=== PATIENT | male | born 1955 | race African-American/Black ===

== ENCOUNTER 2018-11-25 22:34 | Inpatient (IN) | payer MEDICAID ==
[~2018-11-25] VITALS: Ht 175.3 cm; Wt 57.2 kg
[~2018-11-25 22:34] MED LIST: ALBU90AE INH; LISI10TA5 PO; THE3 PO; TIOT18CA3 INH
[2018-11-25] MEDS ORDERED: ONDANSETRON HCL 4MG/2ML INJ IV STA (22:38)
[2018-11-25] MEDS ORDERED: IPRATROPIUM BROMIDE (0.02%) 0.5MG/2.5ML NEB HHN STA (22:38)
[2018-11-25] MEDS ORDERED: METHYLPREDNISOLONE SOD SUCC 125 MG/2 ML VIAL IV STA (22:38)
[2018-11-25] MEDS ORDERED: SODIUM CHLORIDE 0.9% 1,000 ML IV ONE (22:38)
[2018-11-25] MEDS ORDERED: IPRATROPIUM/ALBUTEROL 0.5-3(2.5)MG/3ML NEB ONE (22:39)
[2018-11-25] MEDS ORDERED: MAGNESIUM 2 G PREMIX 50 ML IV ONE (22:45)
[2018-11-25] MEDS ORDERED: ALBUTEROL (0.083%) 2.5MG/3ML NEB HHN SCH (23:00)
[2018-11-25 23:01] LABS: BASOPHILS % 1.5 % (0.0-2.0); EOSINOPHILS % 9.5 % (0.0-5.0); HEMATOCRIT. 38.2 % (42.0-52.0); HEMOGLOBIN. 13.1 g/dL (14.0-18.0); LYMPHOCYTES % 24.9 % (20.0-50.0); MEAN CORPUSCULAR HEMOGLOBIN 32.1 pg (28.0-32.0); MEAN CORPUSCULAR VOLUME 93.6 fL (80.0-94.0); MEAN PLATELET VOLUME 8.3 fl (7.4-10.4); MONOCYTES % 10.5 % (2.0-8.0); NEUTROPHILS % 53.6 % (40.0-76.0); PLATELET 200 x1000/uL (130-400); RED BLOOD CELL COUNT 4.09 mill/uL (4.7-6.1); RED CELL DISTRIBUTION WIDTH 13.3 % (11.6-14.6)
[2018-11-25 23:06] LABS: CHLORIDE 108 mEq/L (98-107)
[2018-11-26] VITALS (10 sets, daily range): BP systolic 114–164; BP diastolic 19–88
[2018-11-26] MEDS ORDERED: MORPHINE SULFATE 4 MG/ML CPJ (NOT FOR IM USE) IV ONE
[2018-11-26] MEDS ORDERED: IPRATROPIUM/ALBUTEROL 0.5-3(2.5)MG/3ML NEB INH PRN (02:30)
[2018-11-26] MEDS ORDERED: DIPHENHYDRAMINE 50MG/ML VIAL IV PRN (02:30)
[2018-11-26] MEDS ORDERED: MAGNESIUM/ALUMINUM HYDROXIDE/SIMETHICONE 30ML UDC PO PRN (02:30)
[2018-11-26] MEDS ORDERED: ONDANSETRON HCL 4MG/2ML INJ IV PRN (02:30)
[2018-11-26] MEDS ORDERED: CLONIDINE 0.1MG TABLET PO PRN (02:30)
[2018-11-26] MEDS ORDERED: ENOXAPARIN 40MG/0.4ML SYR SUBCUT SCH (02:30)
[2018-11-26] MEDS ORDERED: ACETAMINOPHEN 325MG TABLET PO PRN (02:30)
[2018-11-26] MEDS: METHYLPREDNISOLONE SOD SUCC 125 MG/2 ML VIAL IV SCH ×3 (06:11→21:23)
[2018-11-26] MEDS: ENOXAPARIN 40MG/0.4ML SYR SUBCUT SCH (11:16)
[2018-11-26] MEDS: HYDROCODONE/ACETAMINOPHEN 5/325MG TABLET PO PRN (13:53)
[2018-11-26] MEDS: GUAIFENESIN 200MG/10ML SUGAR FREE UDC PO PRN (13:53)
[2018-11-26] MEDS: IPRATROPIUM/ALBUTEROL 0.5-3(2.5)MG/3ML NEB HHN SCH ×2 (15:35→21:35)
[2018-11-26 19:40] LABS: CLARITY URINE CLEAR (CLEAR); COLOR URINE YELLOW (YELLOW); KETONES URINE TRACE (NEGATIVE); LEUKOCYTE ESTERASE URINE NEGATIVE (NEGATIVE); NITRITE URINE NEGATIVE (NEGATIVE); OCCULT BLOOD URINE NEGATIVE (NEGATIVE); PROTEIN URINE NEGATIVE (NEGATIVE)
[2018-11-26 20:14] LABS: *AMPHETAMINES SCREEN URINE NEGATIVE (NEGATIVE); *BARBITURATES SCREEN URINE NEGATIVE (NEGATIVE); *BENZODIAZEPINES SCREEN URINE NEGATIVE (NEGATIVE); *COCAINE SCREEN URINE PRESUMTIVE POSITIVE (NEGATIVE)
[2018-11-26 20:15] LABS: CANNABINOID URINE SCREEN NEGATIVE (NEGATIVE); METHADONE URINE SCREEN NEGATIVE (NEGATIVE); OPIATES URINE SCREEN PRESUMTIVE POSITIVE (NEGATIVE); PHENCYCLIDINE URINE SCREEN PRESUMTIVE POSITIVE (NEGATIVE)
[2018-11-26] MEDS ORDERED: TEMAZEPAM 15MG CAPSULE PO PRN (21:00)
[2018-11-26] MEDS: FLUTICASONE PROPIONATE 50MCG/SPRAY BOTTLE BOTHNSTRLS SCH (21:23)
[2018-11-26] MEDS: SODIUM CHLORIDE 0.9% INJ 3ML FLUSH IVF SCH ×2 (21:24→21:33)
[2018-11-27] VITALS (7 sets, daily range): BP systolic 111–169; BP diastolic 78–91
[2018-11-27] MEDS: IPRATROPIUM/ALBUTEROL 0.5-3(2.5)MG/3ML NEB HHN SCH ×2 (04:00→09:30)
[2018-11-27] MEDS: GUAIFENESIN 200MG/10ML SUGAR FREE UDC PO PRN ×2 (04:18→08:47)
[2018-11-27] MEDS: HYDROCODONE/ACETAMINOPHEN 5/325MG TABLET PO PRN (04:20)
[2018-11-27] MEDS: SODIUM CHLORIDE 0.9% INJ 3ML FLUSH IVF SCH (06:10)
[2018-11-27] MEDS: METHYLPREDNISOLONE SOD SUCC 125 MG/2 ML VIAL IV SCH (06:10)
[2018-11-27] MEDS: ENOXAPARIN 40MG/0.4ML SYR SUBCUT SCH (08:48)
[2018-11-27] MEDS: FLUTICASONE PROPIONATE 50MCG/SPRAY BOTTLE BOTHNSTRLS SCH (08:48)
== END 2018-11-27 11:05 | disposition home or self-care (01) | DRG 133 ==
LOC: ER 22:34 → 5EST 11-26 02:12 → EDBEDREQTM 11-26 02:17 → EDBEDREQ 11-26 02:17 → ENRESERV 11-26 08:19
PROVIDERS: ADMIT Internal Medicine; ATTEND Internal Medicine
PROC: 5A09357 Assistance with Respiratory Ventilation, Less than 24 Consecutive Hours, Continuous Positive Airway Pressure (ICD-10-PCS; 2018-11-25)
PROC: 5A09357 Assistance with Respiratory Ventilation, Less than 24 Consecutive Hours, Continuous Positive Airway Pressure (ICD-10-PCS; principal; 2018-11-26)
DX: J96.00 Acute respiratory failure, unspecified whether with hypoxia or hypercapnia (principal); Z99.81 Dependence on supplemental oxygen; J44.1 Chronic obstructive pulmonary disease with (acute) exacerbation; E44.1 Mild protein-calorie malnutrition; J45.901 Unspecified asthma with (acute) exacerbation; I10 Essential (primary) hypertension; J00 Acute nasopharyngitis [common cold]; Z85.118 Personal history of other malignant neoplasm of bronchus and lung; Z87.891 Personal history of nicotine dependence; Z87.01 Personal history of pneumonia (recurrent); Z79.899 Other long term (current) drug therapy; Z68.1 Body mass index [BMI] 19.9 or less, adult; Z92.3 Personal history of irradiation; Z85.819 Personal history of malignant neoplasm of unspecified site of lip, oral cavity, and pharynx
CPT/HCPCS: 36415; 71045; 80305; 83605; 83880; 84484; 87804; 93005; 94640; 94660; 96365; 99285; J1200; J1650; J2270; J2405; J2930; J3475; J7030; J7620

== ENCOUNTER 2019-01-04 01:13 | Inpatient (IN) | payer MEDICAID ==
[2019-01-04] VITALS (58 sets, daily range): BP systolic 81–156; BP diastolic 55–107
[~2019-01-04] VITALS: Ht 170.2 cm; Wt 67.6 kg
[2019-01-04] MEDS ORDERED: IPRATROPIUM BROMIDE (0.02%) 0.5MG/2.5ML NEB HHN STA (01:17)
[2019-01-04] MEDS ORDERED: MORPHINE SULFATE 4 MG/ML CPJ (NOT FOR IM USE) IV STA (01:17)
[2019-01-04] MEDS ORDERED: ONDANSETRON HCL 4MG/2ML INJ IV STA (01:17)
[2019-01-04] MEDS ORDERED: METHYLPREDNISOLONE SOD SUCC 125 MG/2 ML VIAL IV STA (01:17)
[2019-01-04] MEDS ORDERED: SODIUM CHLORIDE 0.9% 1,000 ML IV ONE (01:17)
[2019-01-04] MEDS ORDERED: MORPHINE SULFATE 10 MG/ML CPJ ONE (01:23)
[2019-01-04] MEDS ORDERED: SUCCINYLCHOLINE CHLORIDE 200MG/10ML IV ONE ×2 (01:27→01:30)
[2019-01-04] MEDS ORDERED: ETOMIDATE 2MG/ML 10ML VIAL IV ONE ×2 (01:27→01:30)
[2019-01-04] MEDS ORDERED: ALBUTEROL (0.083%) 2.5MG/3ML NEB HHN SCH (01:30)
[2019-01-04] MEDS ORDERED: MAGNESIUM 2 G PREMIX 50 ML IV ONE (01:30)
[2019-01-04] MEDS ORDERED: PROPOFOL 10MG/ML 100ML 100 ML IV ONE (01:30)
[2019-01-04 01:46] LABS: BASOPHILS % 1.3 % (0.0-2.0); EOSINOPHILS % 8.3 % (0.0-5.0); HEMATOCRIT. 37.8 % (42.0-52.0); HEMOGLOBIN. 13.3 g/dL (14.0-18.0); LYMPHOCYTES % 31.1 % (20.0-50.0); MEAN CORPUSCULAR HEMOGLOBIN 32.6 pg (28.0-32.0); MEAN CORPUSCULAR VOLUME 92.6 fL (80.0-94.0); MEAN PLATELET VOLUME 7.6 fl (7.4-10.4); MONOCYTES % 12.1 % (2.0-8.0); NEUTROPHILS % 47.2 % (40.0-76.0); PLATELET 200 x1000/uL (130-400); RED BLOOD CELL COUNT 4.08 mill/uL (4.7-6.1); RED CELL DISTRIBUTION WIDTH 13.2 % (11.6-14.6)
[2019-01-04 01:54] LABS: CHLORIDE 103 mEq/L (98-107)
[2019-01-04 01:55] LABS: PROTHROMBIN TIME 10.6 sec (9.6-11.0)
[2019-01-04] MEDS ORDERED: MIDAZOLAM HCL 50 MG in DEXTROSE 5% WATER 40 ML IV ONE (02:30)
[2019-01-04 02:42] LABS: BG BASE EXCESS -1.5 mmol/L (-2.0-2.0); BG CARBOXYHEMOGLOBIN 1.4 % (0.5-1.5); BG DEOXYHEMOGLOBIN 0.9 % (0.0-5.0); BG FRACTION INSPIRED OXYGEN 60; BG HCO3 ACT 29.5 mmol/L (22.0-26.0); BG METHEMOGLOBIN 0.5 % (0.0-1.5); BG OXYGEN SATURATION 99.1 % (92.0-98.5); BG OXYHEMOGLOBIN 97.2 % (94.0-97.0); BG PH 7.163 (7.350-7.450); BG PO2 215.5 mmHg (75.0-100.0); BG SAMPLE SITE RIGHT BRACHIAL; BG TIDAL VOLUME(mL) 500 mL; BG TOTAL HEMOGLOBIN 13.7 g/dL (12.0-18.0); BG VENT MODE VENT - A/C; BG VENT RATE 16 set
[2019-01-04] MEDS ORDERED: FENTANYL CITRATE/PF 500 MCG in SODIUM CHLORIDE 0.9% 40 ML IV PRN (03:15)
[2019-01-04] MEDS: FENTANYL CITRATE/PF 500 MCG in SODIUM CHLORIDE 0.9% 40 ML IV PRN ×3 (03:59→18:38)
[2019-01-04] MEDS: MIDAZOLAM HCL 50 MG in DEXTROSE 5% WATER 40 ML IV PRN ×4 (04:00→18:50)
[2019-01-04] MEDS ORDERED: IOHEXOL-350 100 ML BOTTLE ONE (05:14)
[2019-01-04] MEDS ORDERED: ACETAMINOPHEN 325MG TABLET PO PRN (10:30)
[2019-01-04] MEDS ORDERED: IPRATROPIUM/ALBUTEROL 0.5-3(2.5)MG/3ML NEB INH PRN (10:30)
[2019-01-04] MEDS ORDERED: ACETAMINOPHEN 650MG SUPP PR PRN (10:30)
[2019-01-04] MEDS ORDERED: ONDANSETRON HCL 4MG/2ML INJ IV PRN (10:30)
[2019-01-04 13:05] LABS: BG BASE EXCESS -0.3 mmol/L (-2.0-2.0); BG CARBOXYHEMOGLOBIN 0.2 % (0.5-1.5); BG DEOXYHEMOGLOBIN 1.3 % (0.0-5.0); BG HCO3 ACT 26.4 mmol/L (22.0-26.0); BG METHEMOGLOBIN 0.2 % (0.0-1.5); BG OXYGEN SATURATION 98.7 % (92.0-98.5); BG OXYHEMOGLOBIN 98.3 % (94.0-97.0); BG PCO2 50.9 mmHg (35.0-45.0); BG PH 7.332 (7.350-7.450); BG PO2 147.4 mmHg (75.0-100.0); BG SAMPLE SITE RIGHT RADIAL; BG TIDAL VOLUME(mL) 500 mL; BG TOTAL HEMOGLOBIN 14.8 g/dL (12.0-18.0); BG VENT MODE VENT - A/C; BG VENT RATE 20 set
[2019-01-04] MEDS: METHYLPREDNISOLONE SOD SUCC 125 MG/2 ML VIAL IV SCH ×2 (14:02→18:32)
[2019-01-04] MEDS: AZITHROMYCIN 500 MG in DEXT 5% WATER 250 ML IV SCH (14:02)
[2019-01-04 14:46] LABS: CLARITY URINE CLEAR (CLEAR); COLOR URINE YELLOW (YELLOW); KETONES URINE NEGATIVE (NEGATIVE); LEUKOCYTE ESTERASE URINE NEGATIVE (NEGATIVE); NITRITE URINE NEGATIVE (NEGATIVE); OCCULT BLOOD URINE 2+ (NEGATIVE); PH URINE 5.5 (4.5-8.0); PROTEIN URINE NEGATIVE (NEGATIVE); SPECIFIC GRAVITY URINE 1.066 (1.005-1.030)
[2019-01-04 14:59] LABS: METHADONE URINE SCREEN NEGATIVE (NEGATIVE); OPIATES URINE SCREEN PRESUMTIVE POSITIVE (NEGATIVE)
[2019-01-04 15:01] LABS: *AMPHETAMINES SCREEN URINE NEGATIVE (NEGATIVE); *BARBITURATES SCREEN URINE NEGATIVE (NEGATIVE); *BENZODIAZEPINES SCREEN URINE PRESUMTIVE POSITIVE (NEGATIVE); *COCAINE SCREEN URINE PRESUMTIVE POSITIVE (NEGATIVE); CANNABINOID URINE SCREEN NEGATIVE (NEGATIVE); PHENCYCLIDINE URINE SCREEN PRESUMTIVE POSITIVE (NEGATIVE)
[2019-01-04] MEDS: CEFEPIME 1,000 MG in DEXTROSE 5% WATER 50 ML IV SCH (15:13)
[2019-01-04] MEDS: METRONIDAZOLE 500 MG PREMIX 100 ML IV SCH (16:17)
[2019-01-04] MEDS: IPRATROPIUM/ALBUTEROL 0.5-3(2.5)MG/3ML NEB HHN SCH ×2 (16:30→20:23)
[2019-01-05] VITALS (86 sets, daily range): BP systolic 91–134; BP diastolic 57–107
[2019-01-05] MEDS: IPRATROPIUM/ALBUTEROL 0.5-3(2.5)MG/3ML NEB HHN SCH ×6 (00:35→21:28)
[2019-01-05] MEDS: METRONIDAZOLE 500 MG PREMIX 100 ML IV SCH ×3 (00:45→15:46)
[2019-01-05] MEDS: METHYLPREDNISOLONE SOD SUCC 125 MG/2 ML VIAL IV SCH ×4 (00:46→18:17)
[2019-01-05] MEDS: FENTANYL CITRATE/PF 500 MCG in SODIUM CHLORIDE 0.9% 40 ML IV PRN ×4 (01:07→20:20)
[2019-01-05] MEDS: CEFEPIME 1,000 MG in DEXTROSE 5% WATER 50 ML IV SCH ×2 (03:48→15:09)
[2019-01-05] MEDS: MIDAZOLAM HCL 50 MG in DEXTROSE 5% WATER 40 ML IV PRN ×3 (03:50→20:19)
[2019-01-05 05:50] LABS: HEMATOCRIT. 34.8 % (42.0-52.0); HEMOGLOBIN. 12.1 g/dL (14.0-18.0); MEAN CORPUSCULAR HEMOGLOBIN 32.3 pg (28.0-32.0); MEAN CORPUSCULAR VOLUME 93.3 fL (80.0-94.0); MEAN PLATELET VOLUME 8.3 fl (7.4-10.4); PLATELET 185 x1000/uL (130-400); RED BLOOD CELL COUNT 3.73 mill/uL (4.7-6.1); RED CELL DISTRIBUTION WIDTH 13.2 % (11.6-14.6)
[2019-01-05 06:11] LABS: CHLORIDE 102 mEq/L (98-107)
[2019-01-05 08:00] LABS: BG BASE EXCESS -2.8 mmol/L (-2.0-2.0); BG CARBOXYHEMOGLOBIN 0.3 % (0.5-1.5); BG DEOXYHEMOGLOBIN 2.2 % (0.0-5.0); BG FRACTION INSPIRED OXYGEN 50; BG HCO3 ACT 24.3 mmol/L (22.0-26.0); BG METHEMOGLOBIN 0.4 % (0.0-1.5); BG OXYGEN SATURATION 97.8 % (92.0-98.5); BG OXYHEMOGLOBIN 97.1 % (94.0-97.0); BG PCO2 51.9 mmHg (35.0-45.0); BG PH 7.288 (7.350-7.450); BG PO2 113.4 mmHg (75.0-100.0); BG SAMPLE SITE RIGHT BRACHIAL; BG TIDAL VOLUME(mL) 500 mL; BG TOTAL HEMOGLOBIN 12.8 g/dL (12.0-18.0); BG VENT MODE VENT - A/C; BG VENT RATE 16 set
[2019-01-05] MEDS: AZITHROMYCIN 500 MG in DEXT 5% WATER 250 ML IV SCH (13:41)
[2019-01-05] MEDS: MULTIVITAMINS,THER W-MINERALS TABLET PO SCH (14:12)
[2019-01-05] MEDS: FOLIC ACID 1MG TABLET PO SCH (14:12)
[2019-01-05] MEDS: THIAMINE HCL 100MG TABLET PO SCH (14:12)
[2019-01-05 15:31] LABS: PLATELET ESTIMATE NORMAL
[2019-01-05] MEDS: THEOPHYLLINE ANHYDROUS 80 MG/15 ML 120ML PO SCH (18:18)
[2019-01-06] VITALS (83 sets, daily range): BP systolic 108–176; BP diastolic 64–102
[2019-01-06] MEDS: IPRATROPIUM/ALBUTEROL 0.5-3(2.5)MG/3ML NEB HHN SCH ×6 (00:02→21:06)
[2019-01-06] MEDS: METRONIDAZOLE 500 MG PREMIX 100 ML IV SCH ×4 (00:49→23:55)
[2019-01-06] MEDS: THEOPHYLLINE ANHYDROUS 80 MG/15 ML 120ML PO SCH ×5 (00:56→23:55)
[2019-01-06] MEDS: METHYLPREDNISOLONE SOD SUCC 125 MG/2 ML VIAL IV SCH ×2 (00:56→08:59)
[2019-01-06] MEDS: FENTANYL CITRATE/PF 500 MCG in SODIUM CHLORIDE 0.9% 40 ML IV PRN ×5 (02:10→20:16)
[2019-01-06] MEDS: MIDAZOLAM HCL 50 MG in DEXTROSE 5% WATER 40 ML IV PRN ×4 (02:24→20:16)
[2019-01-06] MEDS: CEFEPIME 1,000 MG in DEXTROSE 5% WATER 50 ML IV SCH ×2 (03:30→15:41)
[2019-01-06 05:34] LABS: HEMATOCRIT. 32.1 % (42.0-52.0); HEMOGLOBIN. 11.3 g/dL (14.0-18.0); MEAN CORPUSCULAR HEMOGLOBIN 32.7 pg (28.0-32.0); MEAN CORPUSCULAR VOLUME 93.1 fL (80.0-94.0); PLATELET 157 x1000/uL (130-400); RED BLOOD CELL COUNT 3.45 mill/uL (4.7-6.1)
[2019-01-06 05:41] LABS: CHLORIDE 102 mEq/L (98-107)
[2019-01-06 08:41] LABS: BG BASE EXCESS 0.4 mmol/L (-2.0-2.0); BG CARBOXYHEMOGLOBIN 0.3 % (0.5-1.5); BG DEOXYHEMOGLOBIN 3.2 % (0.0-5.0); BG FRACTION INSPIRED OXYGEN 50; BG HCO3 ACT 27.9 mmol/L (22.0-26.0); BG METHEMOGLOBIN 0.2 % (0.0-1.5); BG OXYGEN SATURATION 96.8 % (92.0-98.5); BG OXYHEMOGLOBIN 96.3 % (94.0-97.0); BG PCO2 58.9 mmHg (35.0-45.0); BG PH 7.294 (7.350-7.450); BG PO2 97.9 mmHg (75.0-100.0); BG SAMPLE SITE RIGHT RADIAL; BG TIDAL VOLUME(mL) 500 mL; BG TOTAL HEMOGLOBIN 12.3 g/dL (12.0-18.0); BG VENT MODE VENT - A/C; BG VENT RATE 16 set
[2019-01-06] MEDS: THIAMINE HCL 100MG TABLET PO SCH (09:11)
[2019-01-06] MEDS: FOLIC ACID 1MG TABLET PO SCH (09:11)
[2019-01-06] MEDS: MULTIVITAMINS,THER W-MINERALS TABLET PO SCH (09:11)
[2019-01-06] MEDS: AZITHROMYCIN 500 MG in DEXT 5% WATER 250 ML IV SCH (14:24)
[2019-01-06] MEDS: METHYLPREDNISOLONE SOD SUCC 40 MG/ML VIAL IV SCH ×2 (14:24→20:45)
[2019-01-06 16:02] LABS: PLATELET ESTIMATE NORMAL
[2019-01-07] VITALS (92 sets, daily range): BP systolic 104–193; BP diastolic 63–126
[2019-01-07] MEDS: IPRATROPIUM/ALBUTEROL 0.5-3(2.5)MG/3ML NEB HHN SCH ×6 (00:31→20:06)
[2019-01-07] MEDS: CEFEPIME 1,000 MG in DEXTROSE 5% WATER 50 ML IV SCH ×2 (02:42→15:30)
[2019-01-07] MEDS: MIDAZOLAM HCL 50 MG in DEXTROSE 5% WATER 40 ML IV PRN ×4 (03:24→22:43)
[2019-01-07] MEDS: THEOPHYLLINE ANHYDROUS 80 MG/15 ML 120ML PO SCH ×3 (05:01→17:49)
[2019-01-07] MEDS: METHYLPREDNISOLONE SOD SUCC 40 MG/ML VIAL IV SCH ×3 (05:01→20:50)
[2019-01-07] MEDS: FENTANYL CITRATE/PF 500 MCG in SODIUM CHLORIDE 0.9% 40 ML IV PRN ×3 (05:24→14:48)
[2019-01-07 05:50] LABS: HEMATOCRIT. 32.4 % (42.0-52.0); HEMOGLOBIN. 11.3 g/dL (14.0-18.0); MEAN CORPUSCULAR HEMOGLOBIN 32.5 pg (28.0-32.0); MEAN CORPUSCULAR VOLUME 93.3 fL (80.0-94.0); MEAN PLATELET VOLUME 8.2 fl (7.4-10.4); PLATELET 140 x1000/uL (130-400); RED BLOOD CELL COUNT 3.47 mill/uL (4.7-6.1); RED CELL DISTRIBUTION WIDTH 13.1 % (11.6-14.6)
[2019-01-07 05:58] LABS: CHLORIDE 101 mEq/L (98-107)
[2019-01-07] MEDS: METRONIDAZOLE 500 MG PREMIX 100 ML IV SCH ×2 (07:52→17:48)
[2019-01-07] MEDS: FOLIC ACID 1MG TABLET PO SCH (08:10)
[2019-01-07] MEDS: MULTIVITAMINS,THER W-MINERALS TABLET PO SCH (08:10)
[2019-01-07] MEDS: THIAMINE HCL 100MG TABLET PO SCH (08:10)
[2019-01-07 08:25] LABS: BG BASE EXCESS 4.6 mmol/L (-2.0-2.0); BG CARBOXYHEMOGLOBIN 0.1 % (0.5-1.5); BG DEOXYHEMOGLOBIN 3.4 % (0.0-5.0); BG FRACTION INSPIRED OXYGEN 40; BG HCO3 ACT 30.4 mmol/L (22.0-26.0); BG METHEMOGLOBIN 0.2 % (0.0-1.5); BG OXYGEN SATURATION 96.6 % (92.0-98.5); BG OXYHEMOGLOBIN 96.3 % (94.0-97.0); BG PCO2 50.6 mmHg (35.0-45.0); BG PH 7.396 (7.350-7.450); BG PO2 90.1 mmHg (75.0-100.0); BG SAMPLE SITE RIGHT BRACHIAL; BG TIDAL VOLUME(mL) 500 mL; BG TOTAL HEMOGLOBIN 11.9 g/dL (12.0-18.0); BG VENT MODE VENT - A/C; BG VENT RATE 20 set
[2019-01-07 09:41] LABS: PLATELET ESTIMATE NORMAL
[2019-01-07] MEDS: RISPERIDONE 0.5MG TABLET PO SCH ×2 (10:17→17:49)
[2019-01-07] MEDS ORDERED: BISACODYL 10MG SUPP PR PRN (11:00)
[2019-01-07] MEDS: DOCUSATE SODIUM SUGAR FREE 100MG/10ML UDC PO SCH ×2 (12:31→17:48)
[2019-01-07] MEDS: ENOXAPARIN 40MG/0.4ML SYR SUBCUT SCH (12:33)
[2019-01-07] MEDS: AZITHROMYCIN 500 MG in DEXT 5% WATER 250 ML IV SCH (15:28)
[2019-01-07] MEDS ORDERED: EPOETIN ALFA 4000UNITS/ML VIAL SUBCUT SCH (21:00)
[2019-01-08] VITALS (96 sets, daily range): BP systolic 102–194; BP diastolic 60–105
[2019-01-08] MEDS: IPRATROPIUM/ALBUTEROL 0.5-3(2.5)MG/3ML NEB HHN SCH ×6 (00:08→20:42)
[2019-01-08] MEDS: METRONIDAZOLE 500 MG PREMIX 100 ML IV SCH ×4 (00:12→23:01)
[2019-01-08] MEDS: THEOPHYLLINE ANHYDROUS 80 MG/15 ML 120ML PO SCH ×5 (00:13→23:01)
[2019-01-08] MEDS: FENTANYL CITRATE/PF 500 MCG in SODIUM CHLORIDE 0.9% 40 ML IV PRN ×4 (00:17→20:54)
[2019-01-08] MEDS: CEFEPIME 1,000 MG in DEXTROSE 5% WATER 50 ML IV SCH ×2 (02:38→16:28)
[2019-01-08 05:01] LABS: HEMATOCRIT. 34.3 % (42.0-52.0); HEMOGLOBIN. 11.9 g/dL (14.0-18.0); MEAN CORPUSCULAR HEMOGLOBIN 32.5 pg (28.0-32.0); MEAN CORPUSCULAR VOLUME 93.8 fL (80.0-94.0); PLATELET 142 x1000/uL (130-400); RED BLOOD CELL COUNT 3.65 mill/uL (4.7-6.1); RED CELL DISTRIBUTION WIDTH 13.1 % (11.6-14.6)
[2019-01-08 05:05] LABS: CHLORIDE 98 mEq/L (98-107)
[2019-01-08] MEDS: METHYLPREDNISOLONE SOD SUCC 40 MG/ML VIAL IV SCH ×3 (05:23→20:08)
[2019-01-08] MEDS: MIDAZOLAM HCL 50 MG in DEXTROSE 5% WATER 40 ML IV PRN ×3 (05:26→20:53)
[2019-01-08 08:34] LABS: BG BASE EXCESS 6.3 mmol/L (-2.0-2.0); BG CARBOXYHEMOGLOBIN 0.3 % (0.5-1.5); BG DEOXYHEMOGLOBIN 1.5 % (0.0-5.0); BG FRACTION INSPIRED OXYGEN 40; BG HCO3 ACT 31.5 mmol/L (22.0-26.0); BG METHEMOGLOBIN 0.3 % (0.0-1.5); BG OXYGEN SATURATION 98.5 % (92.0-98.5); BG OXYHEMOGLOBIN 97.9 % (94.0-97.0); BG PCO2 47.5 mmHg (35.0-45.0); BG PH 7.439 (7.350-7.450); BG PO2 135.5 mmHg (75.0-100.0); BG SAMPLE SITE LEFT RADIAL; BG TIDAL VOLUME(mL) 500 mL; BG TOTAL HEMOGLOBIN 12.4 g/dL (12.0-18.0); BG VENT MODE VENT - A/C; BG VENT RATE 20 set
[2019-01-08] MEDS: MULTIVITAMINS,THER W-MINERALS TABLET PO SCH (08:48)
[2019-01-08] MEDS: FOLIC ACID 1MG TABLET PO SCH (08:48)
[2019-01-08] MEDS: THIAMINE HCL 100MG TABLET PO SCH (08:48)
[2019-01-08] MEDS: RISPERIDONE 0.5MG TABLET PO SCH ×2 (08:48→16:28)
[2019-01-08] MEDS: DOCUSATE SODIUM SUGAR FREE 100MG/10ML UDC PO SCH ×2 (08:48→16:28)
[2019-01-08 10:38] LABS: PLATELET ESTIMATE NORMAL
[2019-01-08] MEDS: ENOXAPARIN 40MG/0.4ML SYR SUBCUT SCH (11:25)
[2019-01-08] MEDS: HYDRALAZINE 20MG/ML VIAL IV PRN (11:26)
[2019-01-08] MEDS: AZITHROMYCIN 500 MG in DEXT 5% WATER 250 ML IV SCH (13:24)
[2019-01-09] VITALS (96 sets, daily range): BP systolic 101–188; BP diastolic 59–136
[2019-01-09] MEDS: IPRATROPIUM/ALBUTEROL 0.5-3(2.5)MG/3ML NEB HHN SCH ×6 (00:10→20:28)
[2019-01-09] MEDS: CEFEPIME 1,000 MG in DEXTROSE 5% WATER 50 ML IV SCH ×2 (03:03→15:34)
[2019-01-09 04:51] LABS: CHLORIDE 96 mEq/L (98-107)
[2019-01-09 04:53] LABS: HEMATOCRIT. 36.6 % (42.0-52.0); HEMOGLOBIN. 12.6 g/dL (14.0-18.0); MEAN CORPUSCULAR HEMOGLOBIN 32.1 pg (28.0-32.0); MEAN CORPUSCULAR VOLUME 93.4 fL (80.0-94.0); MEAN PLATELET VOLUME 8.2 fl (7.4-10.4); PLATELET 145 x1000/uL (130-400); RED BLOOD CELL COUNT 3.92 mill/uL (4.7-6.1); RED CELL DISTRIBUTION WIDTH 13.3 % (11.6-14.6)
[2019-01-09] MEDS: MIDAZOLAM HCL 50 MG in DEXTROSE 5% WATER 40 ML IV PRN ×2 (05:48→16:04)
[2019-01-09] MEDS: METHYLPREDNISOLONE SOD SUCC 40 MG/ML VIAL IV SCH ×3 (05:48→20:56)
[2019-01-09] MEDS: FENTANYL CITRATE/PF 500 MCG in SODIUM CHLORIDE 0.9% 40 ML IV PRN ×2 (05:48→16:04)
[2019-01-09] MEDS: THEOPHYLLINE ANHYDROUS 80 MG/15 ML 120ML PO SCH ×4 (05:49→23:51)
[2019-01-09] MEDS: MULTIVITAMINS,THER W-MINERALS TABLET PO SCH (09:53)
[2019-01-09] MEDS: RISPERIDONE 0.5MG TABLET PO SCH ×2 (09:53→16:50)
[2019-01-09] MEDS: THIAMINE HCL 100MG TABLET PO SCH (09:53)
[2019-01-09] MEDS: FOLIC ACID 1MG TABLET PO SCH (09:53)
[2019-01-09] MEDS: DOCUSATE SODIUM SUGAR FREE 100MG/10ML UDC PO SCH ×2 (09:53→16:50)
[2019-01-09 10:13] LABS: PLATELET ESTIMATE NORMAL
[2019-01-09] MEDS ORDERED: LORAZEPAM 2MG/ML CPJ IV SCH (10:30)
[2019-01-09] MEDS: ENOXAPARIN 40MG/0.4ML SYR SUBCUT SCH (11:05)
[2019-01-09] MEDS: METRONIDAZOLE 500 MG PREMIX 100 ML IV SCH ×3 (11:29→23:50)
[2019-01-09] MEDS: AZITHROMYCIN 500 MG in DEXT 5% WATER 250 ML IV SCH (13:49)
[2019-01-10] VITALS (110 sets, daily range): BP systolic 102–213; BP diastolic 65–125
[2019-01-10] MEDS: MIDAZOLAM HCL 50 MG in DEXTROSE 5% WATER 40 ML IV PRN ×2 (00:18→04:50)
[2019-01-10] MEDS: FENTANYL CITRATE/PF 500 MCG in SODIUM CHLORIDE 0.9% 40 ML IV PRN ×4 (00:18→19:58)
[2019-01-10] MEDS: IPRATROPIUM/ALBUTEROL 0.5-3(2.5)MG/3ML NEB HHN SCH ×6 (00:34→20:18)
[2019-01-10] MEDS: CEFEPIME 1,000 MG in DEXTROSE 5% WATER 50 ML IV SCH ×2 (02:59→15:20)
[2019-01-10 04:57] LABS: HEMATOCRIT. 33.1 % (42.0-52.0); HEMOGLOBIN. 11.6 g/dL (14.0-18.0); MEAN CORPUSCULAR HEMOGLOBIN 32.6 pg (28.0-32.0); MEAN CORPUSCULAR VOLUME 93.4 fL (80.0-94.0); MEAN PLATELET VOLUME 8.1 fl (7.4-10.4); PLATELET 151 x1000/uL (130-400); RED BLOOD CELL COUNT 3.54 mill/uL (4.7-6.1); RED CELL DISTRIBUTION WIDTH 13.3 % (11.6-14.6)
[2019-01-10 05:05] LABS: CHLORIDE 97 mEq/L (98-107)
[2019-01-10] MEDS: METHYLPREDNISOLONE SOD SUCC 40 MG/ML VIAL IV SCH ×3 (05:18→21:08)
[2019-01-10] MEDS: THEOPHYLLINE ANHYDROUS 80 MG/15 ML 120ML PO SCH ×3 (05:18→18:07)
[2019-01-10 08:14] LABS: PLATELET ESTIMATE NORMAL
[2019-01-10] MEDS: METRONIDAZOLE 500 MG PREMIX 100 ML IV SCH ×2 (08:31→16:17)
[2019-01-10] MEDS: RISPERIDONE 0.5MG TABLET PO SCH (08:31)
[2019-01-10] MEDS: MULTIVITAMINS,THER W-MINERALS TABLET PO SCH (08:31)
[2019-01-10] MEDS: DOCUSATE SODIUM SUGAR FREE 100MG/10ML UDC PO SCH ×2 (08:31→18:07)
[2019-01-10] MEDS: THIAMINE HCL 100MG TABLET PO SCH (08:31)
[2019-01-10] MEDS: FOLIC ACID 1MG TABLET PO SCH (08:31)
[2019-01-10] MEDS: ENOXAPARIN 40MG/0.4ML SYR SUBCUT SCH (11:58)
[2019-01-10] MEDS: HYDRALAZINE 20MG/ML VIAL IV PRN ×2 (11:59→18:47)
[2019-01-10] MEDS: FAMOTIDINE 20MG TABLET PO SCH ×2 (11:59→20:29)
[2019-01-10] MEDS ORDERED: METHYLPREDNISOLONE SOD SUCC 125 MG/2 ML VIAL IV SCH (12:00)
[2019-01-10] MEDS: AZITHROMYCIN 500 MG in DEXT 5% WATER 250 ML IV SCH (13:24)
[2019-01-10 13:51] LABS: BG BASE EXCESS 5.3 mmol/L (-2.0-2.0); BG CARBOXYHEMOGLOBIN 0.4 % (0.5-1.5); BG FRACTION INSPIRED OXYGEN 40; BG HCO3 ACT 32.5 mmol/L (22.0-26.0); BG METHEMOGLOBIN 0.2 % (0.0-1.5); BG OXYHEMOGLOBIN 95.4 % (94.0-97.0); BG PCO2 58.5 mmHg (35.0-45.0); BG PH 7.362 (7.350-7.450); BG PO2 86.6 mmHg (75.0-100.0); BG PRESSURE SUPPORT 8; BG SAMPLE SITE RIGHT RADIAL; BG VENT MODE VENT - CPAP
[2019-01-10] MEDS: LORAZEPAM 2MG/ML CPJ IV PRN ×2 (13:54→18:47)
[2019-01-10] MEDS ORDERED: RACEPINEPHRINE 2.25% 0.5ML NEB VIAL HHN PRN (14:45)
[2019-01-10] MEDS ORDERED: ONDANSETRON HCL 4MG TABLET PO PRN (15:45)
[2019-01-10] MEDS: QUETIAPINE FUMARATE 25MG TABLET PO SCH (20:28)
[2019-01-11] VITALS (76 sets, daily range): BP systolic 98–177; BP diastolic 58–111
[2019-01-11] MEDS: IPRATROPIUM/ALBUTEROL 0.5-3(2.5)MG/3ML NEB HHN SCH ×6 (00:10→20:54)
[2019-01-11] MEDS: FENTANYL CITRATE/PF 500 MCG in SODIUM CHLORIDE 0.9% 40 ML IV PRN ×2 (00:52→06:30)
[2019-01-11] MEDS: METRONIDAZOLE 500 MG PREMIX 100 ML IV SCH ×4 (00:54→23:14)
[2019-01-11] MEDS: THEOPHYLLINE ANHYDROUS 80 MG/15 ML 120ML PO SCH ×5 (01:02→23:15)
[2019-01-11] MEDS: LORAZEPAM 2MG/ML CPJ IV PRN (01:40)
[2019-01-11] MEDS: CEFEPIME 1,000 MG in DEXTROSE 5% WATER 50 ML IV SCH ×2 (03:30→15:51)
[2019-01-11 05:41] LABS: HEMATOCRIT. 37.6 % (42.0-52.0); HEMOGLOBIN. 12.9 g/dL (14.0-18.0); MEAN CORPUSCULAR HEMOGLOBIN 31.9 pg (28.0-32.0); MEAN CORPUSCULAR VOLUME 92.7 fL (80.0-94.0); MEAN PLATELET VOLUME 7.9 fl (7.4-10.4); PLATELET 198 x1000/uL (130-400); RED BLOOD CELL COUNT 4.05 mill/uL (4.7-6.1); RED CELL DISTRIBUTION WIDTH 13.1 % (11.6-14.6)
[2019-01-11] MEDS: METHYLPREDNISOLONE SOD SUCC 40 MG/ML VIAL IV SCH ×3 (05:42→23:14)
[2019-01-11 06:04] LABS: CHLORIDE 94 mEq/L (98-107)
[2019-01-11] MEDS: FAMOTIDINE 20MG TABLET PO SCH ×2 (08:34→20:44)
[2019-01-11] MEDS: MULTIVITAMINS,THER W-MINERALS TABLET PO SCH (08:34)
[2019-01-11] MEDS: FOLIC ACID 1MG TABLET PO SCH (08:34)
[2019-01-11] MEDS: QUETIAPINE FUMARATE 25MG TABLET PO SCH ×2 (08:34→20:44)
[2019-01-11] MEDS: THIAMINE HCL 100MG TABLET PO SCH (08:34)
[2019-01-11] MEDS: DOCUSATE SODIUM SUGAR FREE 100MG/10ML UDC PO SCH ×2 (08:35→17:00)
[2019-01-11 11:13] LABS: BG BASE EXCESS 6.7 mmol/L (-2.0-2.0); BG CARBOXYHEMOGLOBIN 0.6 % (0.5-1.5); BG DEOXYHEMOGLOBIN 1.6 % (0.0-5.0); BG FRACTION INSPIRED OXYGEN 40; BG HCO3 ACT 31.8 mmol/L (22.0-26.0); BG METHEMOGLOBIN 0.3 % (0.0-1.5); BG OXYGEN SATURATION 98.4 % (92.0-98.5); BG OXYHEMOGLOBIN 97.5 % (94.0-97.0); BG PH 7.448 (7.350-7.450); BG PO2 121.1 mmHg (75.0-100.0); BG PRESSURE SUPPORT 8; BG SAMPLE SITE RIGHT BRACHIAL; BG TOTAL HEMOGLOBIN 14.2 g/dL (12.0-18.0); BG VENT MODE VENT - CPAP
[2019-01-11] MEDS: ENOXAPARIN 40MG/0.4ML SYR SUBCUT SCH (12:13)
[2019-01-11] MEDS ORDERED: RACEPINEPHRINE 2.25% 0.5ML NEB VIAL HHN PRN (12:15)
[2019-01-11] MEDS: AZITHROMYCIN 500 MG in DEXT 5% WATER 250 ML IV SCH (14:05)
[2019-01-11 14:17] LABS: PLATELET ESTIMATE NORMAL
[2019-01-11] MEDS: HYDRALAZINE 20MG/ML VIAL IV PRN (16:18)
[2019-01-12] VITALS (53 sets, daily range): BP systolic 96–177; BP diastolic 59–122
[2019-01-12] MEDS: IPRATROPIUM/ALBUTEROL 0.5-3(2.5)MG/3ML NEB HHN SCH ×5 (00:20→20:16)
[2019-01-12] MEDS: HYDRALAZINE 20MG/ML VIAL IV PRN (01:40)
[2019-01-12] MEDS: CEFEPIME 1,000 MG in DEXTROSE 5% WATER 50 ML IV SCH ×2 (02:40→14:28)
[2019-01-12] MEDS: METHYLPREDNISOLONE SOD SUCC 40 MG/ML VIAL IV SCH ×2 (05:52→18:01)
[2019-01-12] MEDS: THEOPHYLLINE ANHYDROUS 80 MG/15 ML 120ML PO SCH ×3 (05:52→18:01)
[2019-01-12 06:08] LABS: HEMATOCRIT. 43.5 % (42.0-52.0); HEMOGLOBIN. 15.2 g/dL (14.0-18.0); MEAN CORPUSCULAR HEMOGLOBIN 32.2 pg (28.0-32.0); MEAN CORPUSCULAR VOLUME 92.4 fL (80.0-94.0); PLATELET 232 x1000/uL (130-400); RED BLOOD CELL COUNT 4.71 mill/uL (4.7-6.1); RED CELL DISTRIBUTION WIDTH 13.1 % (11.6-14.6)
[2019-01-12 06:31] LABS: CHLORIDE 95 mEq/L (98-107)
[2019-01-12 07:06] LABS: PLATELET ESTIMATE NORMAL
[2019-01-12] MEDS: THIAMINE HCL 100MG TABLET PO SCH (09:32)
[2019-01-12] MEDS: DOCUSATE SODIUM SUGAR FREE 100MG/10ML UDC PO SCH ×2 (09:32→18:01)
[2019-01-12] MEDS: FOLIC ACID 1MG TABLET PO SCH (09:32)
[2019-01-12] MEDS: QUETIAPINE FUMARATE 25MG TABLET PO SCH ×2 (09:32→20:10)
[2019-01-12] MEDS: METRONIDAZOLE 500 MG PREMIX 100 ML IV SCH ×2 (09:32→16:38)
[2019-01-12] MEDS: MULTIVITAMINS,THER W-MINERALS TABLET PO SCH (09:32)
[2019-01-12] MEDS: FAMOTIDINE 20MG TABLET PO SCH ×2 (09:32→20:10)
[2019-01-12] MEDS: LORAZEPAM 2MG/ML CPJ IV PRN (10:40)
[2019-01-12] MEDS: ENOXAPARIN 40MG/0.4ML SYR SUBCUT SCH (12:49)
[2019-01-12] MEDS: AZITHROMYCIN 500 MG in DEXT 5% WATER 250 ML IV SCH (14:28)
[2019-01-12] MEDS: AMLODIPINE 5MG TABLET PO SCH (20:10)
[2019-01-13] VITALS (28 sets, daily range): BP systolic 99–147; BP diastolic 55–104
[2019-01-13] MEDS: METRONIDAZOLE 500 MG PREMIX 100 ML IV SCH ×3 (00:05→16:54)
[2019-01-13] MEDS: THEOPHYLLINE ANHYDROUS 80 MG/15 ML 120ML PO SCH ×4 (00:06→17:02)
[2019-01-13] MEDS: IPRATROPIUM/ALBUTEROL 0.5-3(2.5)MG/3ML NEB HHN SCH ×3 (00:52→09:02)
[2019-01-13] MEDS: CEFEPIME 1,000 MG in DEXTROSE 5% WATER 50 ML IV SCH ×2 (02:42→15:54)
[2019-01-13 05:33] LABS: BASOPHILS % 0.5 % (0.0-2.0); EOSINOPHILS % 0.5 % (0.0-5.0); HEMATOCRIT. 42.5 % (42.0-52.0); HEMOGLOBIN. 14.7 g/dL (14.0-18.0); LYMPHOCYTES % 15.6 % (20.0-50.0); MEAN CORPUSCULAR HEMOGLOBIN 32.3 pg (28.0-32.0); MEAN CORPUSCULAR VOLUME 93.2 fL (80.0-94.0); MEAN PLATELET VOLUME 7.8 fl (7.4-10.4); MONOCYTES % 12.7 % (2.0-8.0); NEUTROPHILS % 70.7 % (40.0-76.0); PLATELET 248 x1000/uL (130-400); RED BLOOD CELL COUNT 4.56 mill/uL (4.7-6.1); RED CELL DISTRIBUTION WIDTH 13.3 % (11.6-14.6)
[2019-01-13 05:39] LABS: CHLORIDE 96 mEq/L (98-107)
[2019-01-13 05:48] LABS: PHOSPHORUS 2.6 mg/dL (2.5-4.9)
[2019-01-13] MEDS: AMLODIPINE 5MG TABLET PO SCH ×2 (09:00→21:00)
[2019-01-13] MEDS: MULTIVITAMINS,THER W-MINERALS TABLET PO SCH (10:03)
[2019-01-13] MEDS: QUETIAPINE FUMARATE 25MG TABLET PO SCH ×2 (10:03→21:37)
[2019-01-13] MEDS: FAMOTIDINE 20MG TABLET PO SCH ×2 (10:03→21:37)
[2019-01-13] MEDS: METHYLPREDNISOLONE SOD SUCC 40 MG/ML VIAL IV SCH (10:03)
[2019-01-13] MEDS: FOLIC ACID 1MG TABLET PO SCH (10:04)
[2019-01-13] MEDS: DOCUSATE SODIUM SUGAR FREE 100MG/10ML UDC PO SCH ×2 (10:04→16:58)
[2019-01-13] MEDS: THIAMINE HCL 100MG TABLET PO SCH (10:05)
[2019-01-13] MEDS ORDERED: HYDROCODONE/ACETAMINOPHEN 5/325MG TABLET PO PRN (11:00)
[2019-01-13] MEDS: TRAMADOL 50MG TABLET PO PRN (11:21)
[2019-01-13] MEDS: ENOXAPARIN 40MG/0.4ML SYR SUBCUT SCH (12:57)
[2019-01-13] MEDS: AZITHROMYCIN 500 MG in DEXT 5% WATER 250 ML IV SCH (14:29)
[2019-01-13] MEDS: IPRATROPIUM BROMIDE (0.02%) 0.5MG/2.5ML NEB HHN SCH ×2 (15:55→21:13)
[2019-01-13] MEDS: HYDROCODONE/ACETAMINOPHEN 10/325MG TABLET PO PRN (21:42)
[2019-01-14] VITALS (9 sets, daily range): BP systolic 89–131; BP diastolic 60–80
[2019-01-14] MEDS: METRONIDAZOLE 500 MG PREMIX 100 ML IV SCH ×3 (00:46→16:48)
[2019-01-14] MEDS: TRAMADOL 50MG TABLET PO PRN (00:46)
[2019-01-14] MEDS: THEOPHYLLINE ANHYDROUS 80 MG/15 ML 120ML PO SCH ×4 (01:02→18:33)
[2019-01-14] MEDS: IPRATROPIUM BROMIDE (0.02%) 0.5MG/2.5ML NEB HHN SCH ×4 (02:02→20:10)
[2019-01-14] MEDS: CEFEPIME 1,000 MG in DEXTROSE 5% WATER 50 ML IV SCH ×2 (03:51→16:28)
[2019-01-14 06:38] LABS: CHLORIDE 98 mEq/L (98-107)
[2019-01-14 06:46] LABS: HEMATOCRIT. 38.4 % (42.0-52.0); HEMOGLOBIN. 13.7 g/dL (14.0-18.0); MEAN CORPUSCULAR HEMOGLOBIN 32.8 pg (28.0-32.0); MEAN CORPUSCULAR VOLUME 91.7 fL (80.0-94.0); MEAN PLATELET VOLUME 7.4 fl (7.4-10.4); PLATELET 230 x1000/uL (130-400); RED BLOOD CELL COUNT 4.18 mill/uL (4.7-6.1); RED CELL DISTRIBUTION WIDTH 13.2 % (11.6-14.6)
[2019-01-14] MEDS: QUETIAPINE FUMARATE 25MG TABLET PO SCH ×2 (08:17→21:11)
[2019-01-14] MEDS: DOCUSATE SODIUM SUGAR FREE 100MG/10ML UDC PO SCH ×2 (08:17→16:32)
[2019-01-14] MEDS: FOLIC ACID 1MG TABLET PO SCH (08:17)
[2019-01-14] MEDS: AMLODIPINE 5MG TABLET PO SCH ×2 (08:19→21:00)
[2019-01-14] MEDS: FAMOTIDINE 20MG TABLET PO SCH ×2 (08:19→21:11)
[2019-01-14] MEDS: THIAMINE HCL 100MG TABLET PO SCH (08:19)
[2019-01-14] MEDS: MULTIVITAMINS,THER W-MINERALS TABLET PO SCH (08:19)
[2019-01-14] MEDS: HYDROCODONE/ACETAMINOPHEN 10/325MG TABLET PO PRN ×2 (08:20→16:45)
[2019-01-14] MEDS: METHYLPREDNISOLONE SOD SUCC 40 MG/ML VIAL IV SCH (08:34)
[2019-01-14] MEDS: ENOXAPARIN 40MG/0.4ML SYR SUBCUT SCH (12:20)
[2019-01-14 12:54] LABS: PLATELET ESTIMATE NORMAL
[2019-01-14] MEDS: AZITHROMYCIN 500 MG in DEXT 5% WATER 250 ML IV SCH (13:35)
[2019-01-14] MEDS ORDERED: LORAZEPAM 0.5MG TABLET PO PRN (13:45)
[2019-01-15] VITALS: BP 99/65
[2019-01-15] MEDS: METRONIDAZOLE 500 MG PREMIX 100 ML IV SCH ×2 (00:13→08:11)
[2019-01-15] MEDS: THEOPHYLLINE ANHYDROUS 80 MG/15 ML 120ML PO SCH ×3 (00:13→12:07)
[2019-01-15] MEDS: HYDROCODONE/ACETAMINOPHEN 10/325MG TABLET PO PRN ×2 (02:06→08:48)
[2019-01-15] MEDS: CEFEPIME 1,000 MG in DEXTROSE 5% WATER 50 ML IV SCH (02:07)
[2019-01-15] MEDS: IPRATROPIUM BROMIDE (0.02%) 0.5MG/2.5ML NEB HHN SCH ×3 (02:10→13:59)
[2019-01-15 04:00] VITALS: BP 104/62
[2019-01-15 08:00] VITALS: BP 114/68
[2019-01-15 08:07] LABS: CHLORIDE 97 mEq/L (98-107)
[2019-01-15] MEDS: DOCUSATE SODIUM SUGAR FREE 100MG/10ML UDC PO SCH (08:12)
[2019-01-15] MEDS: QUETIAPINE FUMARATE 25MG TABLET PO SCH (08:48)
[2019-01-15] MEDS: MULTIVITAMINS,THER W-MINERALS TABLET PO SCH (08:48)
[2019-01-15] MEDS: THIAMINE HCL 100MG TABLET PO SCH (08:48)
[2019-01-15] MEDS: FOLIC ACID 1MG TABLET PO SCH (08:48)
[2019-01-15] MEDS: FAMOTIDINE 20MG TABLET PO SCH (08:48)
[2019-01-15] MEDS: METHYLPREDNISOLONE SOD SUCC 40 MG/ML VIAL IV SCH (08:48)
[2019-01-15] MEDS: AMLODIPINE 5MG TABLET PO SCH (08:49)
[2019-01-15 08:52] VITALS: BP 114/68
[2019-01-15] MEDS: ENOXAPARIN 40MG/0.4ML SYR SUBCUT SCH (12:07)
[2019-01-15 12:27] VITALS: BP 115/75
[2019-01-15 12:28] VITALS: BP 115/75
== END 2019-01-15 14:53 | disposition home or self-care (01) | DRG 720 ==
LOC: ER 01:13 → EDBEDREQSVC 02:12 → EDBEDREQ 04:03 → EDBEDREQTM 04:03 → MICUSO 04:12 → ENRESERV 07:32 → 5EST 01-13 11:55 → 8WST 01-14 16:09
PROVIDERS: ADMIT Internal Medicine; ATTEND Internal Medicine
PROC: 5A1955Z Respiratory Ventilation, Greater than 96 Consecutive Hours (ICD-10-PCS; principal; 2019-01-04)
PROC: 0BH17EZ Insertion of Endotracheal Airway into Trachea, Via Natural or Artificial Opening (ICD-10-PCS; 2019-01-04)
DX: A41.9 Sepsis, unspecified organism (principal); J96.22 Acute and chronic respiratory failure with hypercapnia; J18.1 Lobar pneumonia, unspecified organism; J43.9 Emphysema, unspecified; E87.2 Acidosis; I10 Essential (primary) hypertension; D64.9 Anemia, unspecified; E87.1 Hypo-osmolality and hyponatremia; F14.10 Cocaine abuse, uncomplicated; R31.9 Hematuria, unspecified; J47.0 Bronchiectasis with acute lower respiratory infection; T88.4XXA Failed or difficult intubation, initial encounter; M21.952 Unspecified acquired deformity of left thigh; J39.8 Other specified diseases of upper respiratory tract; Y84.2 Radiological procedure and radiotherapy as the cause of abnormal reaction of the patient, or of later complication, without mention of misadventure at the time of the procedure; M16.12 Unilateral primary osteoarthritis, left hip; Z78.1 Physical restraint status; Z85.819 Personal history of malignant neoplasm of unspecified site of lip, oral cavity, and pharynx; Z85.850 Personal history of malignant neoplasm of thyroid; Z87.891 Personal history of nicotine dependence; Z92.3 Personal history of irradiation; Z79.899 Other long term (current) drug therapy; Y92.89 Other specified places as the place of occurrence of the external cause
CPT/HCPCS: 31500; 36415; 36600; 70490; 71045; 71275; 80048; 80305; 82375; 82805; 83605; 83735; 83880; 84100; 84478; 84484; 87070; 92610; 93005; 93970; 94002; 94003; 94640; 94660; 96365; 96375; 97163; 97166; 97530; 97535; 99291; J0330; J0360; J0456; J0692; J1650; J2060; J2250; J2270; J2405; J2704; J2920; J2930; J3010; J3475; J3490; J7030; J7040; J7050; J7060; J7620; Q9967; A4315

== ENCOUNTER 2019-02-18 06:09 | Inpatient (IN) | payer MEDICAID ==
[~2019-02-18] VITALS: Ht 177.8 cm; Wt 59.9 kg
[2019-02-18] VITALS (9 sets, daily range): BP systolic 114–152; BP diastolic 64–103
[~2019-02-18 06:09] MED LIST changes: -LISI10TA5 PO
[2019-02-18] MEDS ORDERED: IPRATROPIUM BROMIDE (0.02%) 0.5MG/2.5ML NEB HHN STA (06:12)
[2019-02-18] MEDS ORDERED: METHYLPREDNISOLONE SOD SUCC 125 MG/2 ML VIAL IV STA (06:12)
[2019-02-18] MEDS ORDERED: MAGNESIUM 2 G PREMIX 50 ML IV STA (06:12)
[2019-02-18] MEDS ORDERED: ALBUTEROL (0.083%) 2.5MG/3ML NEB HHN STA (06:12)
[2019-02-18] MEDS ORDERED: LEVOFLOXACIN 500MG PREMIX 100 ML IV ONE (06:30)
[2019-02-18 06:42] LABS: BASOPHILS % 1.3 % (0.0-2.0); EOSINOPHILS % 11.2 % (0.0-5.0); HEMOGLOBIN. 12.9 g/dL (14.0-18.0); LYMPHOCYTES % 25.5 % (20.0-50.0); MEAN CORPUSCULAR VOLUME 94.5 fL (80.0-94.0); MEAN PLATELET VOLUME 7.9 fl (7.4-10.4); MONOCYTES % 10.2 % (2.0-8.0); NEUTROPHILS % 51.8 % (40.0-76.0); PLATELET 176 x1000/uL (130-400); RED BLOOD CELL COUNT 3.92 mill/uL (4.7-6.1); RED CELL DISTRIBUTION WIDTH 13.1 % (11.6-14.6)
[2019-02-18 06:46] LABS: CHLORIDE 106 mEq/L (98-107)
[2019-02-18 06:51] LABS: ETHANOL BLOOD < 10 mg/dL
[2019-02-18 06:56] LABS: PROTHROMBIN TIME 10.1 sec (9.6-11.0)
[2019-02-18 08:05] LABS: BG BASE EXCESS -1.1 mmol/L (-2.0-2.0); BG BILEVEL POS AIRWAY PRESSURE 15/5; BG CARBOXYHEMOGLOBIN 0.9 % (0.5-1.5); BG DEOXYHEMOGLOBIN 0.8 % (0.0-5.0); BG FRACTION INSPIRED OXYGEN 50; BG METHEMOGLOBIN 0.3 % (0.0-1.5); BG OXYGEN SATURATION 99.2 % (92.0-98.5); BG PCO2 46.9 mmHg (35.0-45.0); BG PH 7.344 (7.350-7.450); BG PO2 238.2 mmHg (75.0-100.0); BG SAMPLE SITE RIGHT BRACHIAL; BG TOTAL HEMOGLOBIN 12.9 g/dL (12.0-18.0); BG VENT MODE MASK - BIPAP; BG VENT RATE 16 set
[2019-02-18] MEDS ORDERED: LISI-186 MT (08:55)
[2019-02-18] MEDS ORDERED: HYDR-4009 MT (08:55)
[2019-02-18] MEDS ORDERED: DOCUSATE SODIUM 100MG CAPSULE PO PRN (09:15)
[2019-02-18] MEDS ORDERED: CLONIDINE 0.1MG TABLET PO PRN (09:15)
[2019-02-18] MEDS ORDERED: DIPHENHYDRAMINE 50MG/ML VIAL IV PRN (09:15)
[2019-02-18] MEDS ORDERED: IPRATROPIUM/ALBUTEROL 0.5-3(2.5)MG/3ML NEB INH PRN (09:15)
[2019-02-18] MEDS ORDERED: MAGNESIUM/ALUMINUM HYDROXIDE/SIMETHICONE 30ML UDC PO PRN (09:15)
[2019-02-18] MEDS ORDERED: ONDANSETRON HCL 4MG/2ML INJ IV PRN (09:15)
[2019-02-18] MEDS ORDERED: ACETAMINOPHEN 325MG TABLET PO PRN (09:15)
[2019-02-18 09:42] LABS: PHOSPHORUS 3.6 mg/dL (2.5-4.9)
[2019-02-18] MEDS: METHYLPREDNISOLONE SOD SUCC 125 MG/2 ML VIAL IV SCH ×3 (09:48→20:45)
[2019-02-18] MEDS: ENOXAPARIN 40MG/0.4ML SYR SUBCUT SCH (09:49)
[2019-02-18 12:19] LABS: CLARITY URINE CLEAR (CLEAR); COLOR URINE YELLOW (YELLOW); KETONES URINE NEGATIVE (NEGATIVE); LEUKOCYTE ESTERASE URINE NEGATIVE (NEGATIVE); NITRITE URINE NEGATIVE (NEGATIVE); OCCULT BLOOD URINE NEGATIVE (NEGATIVE); PROTEIN URINE NEGATIVE (NEGATIVE); SPECIFIC GRAVITY URINE 1.026 (1.005-1.030)
[2019-02-18 12:40] LABS: *AMPHETAMINES SCREEN URINE NEGATIVE (NEGATIVE); *BARBITURATES SCREEN URINE NEGATIVE (NEGATIVE)
[2019-02-18 12:41] LABS: *BENZODIAZEPINES SCREEN URINE NEGATIVE (NEGATIVE); *COCAINE SCREEN URINE PRESUMTIVE POSITIVE (NEGATIVE); CANNABINOID URINE SCREEN NEGATIVE (NEGATIVE); METHADONE URINE SCREEN NEGATIVE (NEGATIVE); OPIATES URINE SCREEN NEGATIVE (NEGATIVE); PHENCYCLIDINE URINE SCREEN PRESUMTIVE POSITIVE (NEGATIVE)
[2019-02-18] MEDS: IPRATROPIUM/ALBUTEROL 0.5-3(2.5)MG/3ML NEB HHN SCH ×3 (15:39→21:04)
[2019-02-18] MEDS: GUAIFENESIN 200MG/10ML SUGAR FREE UDC PO PRN (18:09)
[2019-02-18] MEDS: HYDROCODONE/ACETAMINOPHEN 5/325MG TABLET PO PRN (20:50)
[2019-02-19] VITALS (12 sets, daily range): BP systolic 128–158; BP diastolic 64–89
[2019-02-19 01:46] LABS: CREATINE KINASE MB FRACTION 3.6 ng/mL (0.5-3.6)
[2019-02-19] MEDS: IPRATROPIUM/ALBUTEROL 0.5-3(2.5)MG/3ML NEB HHN SCH ×6 (04:00→20:28)
[2019-02-19] MEDS: METHYLPREDNISOLONE SOD SUCC 125 MG/2 ML VIAL IV SCH ×4 (04:31→20:36)
[2019-02-19] MEDS: GUAIFENESIN 200MG/10ML SUGAR FREE UDC PO PRN ×4 (04:34→20:38)
[2019-02-19] MEDS: HYDROCODONE/ACETAMINOPHEN 5/325MG TABLET PO PRN ×3 (04:34→20:38)
[2019-02-19 08:13] LABS: HEMATOCRIT. 31.9 % (42.0-52.0); HEMOGLOBIN. 11.4 g/dL (14.0-18.0); MEAN CORPUSCULAR HEMOGLOBIN 33.2 pg (28.0-32.0); MEAN CORPUSCULAR VOLUME 93.1 fL (80.0-94.0); MEAN PLATELET VOLUME 8.2 fl (7.4-10.4); PLATELET 170 x1000/uL (130-400); RED BLOOD CELL COUNT 3.43 mill/uL (4.7-6.1); RED CELL DISTRIBUTION WIDTH 13.2 % (11.6-14.6)
[2019-02-19 08:31] LABS: CHLORIDE 104 mEq/L (98-107)
[2019-02-19 08:45] LABS: LDL CHOLESTEROL 92 mg/dL (5-100)
[2019-02-19 08:46] LABS: HDL CHOLESTEROL 71 mg/dL (40-59)
[2019-02-19] MEDS: ENOXAPARIN 40MG/0.4ML SYR SUBCUT SCH (09:15)
[2019-02-19 10:47] LABS: PLATELET ESTIMATE NORMAL
[2019-02-19 13:07] LABS: T4 FREE 0.95 ng/dL (0.76-1.46)
[2019-02-19] MEDS ORDERED: GADOBENATE DIMEGLUMINE 529 MG/ML 10ML IV ONE (14:25)
[2019-02-19] MEDS: ZOLPIDEM TARTRATE 5MG TABLET PO SCH (20:36)
[2019-02-20] VITALS (12 sets, daily range): BP systolic 119–157; BP diastolic 70–97
[2019-02-20] MEDS: METHYLPREDNISOLONE SOD SUCC 125 MG/2 ML VIAL IV SCH ×4 (02:52→21:20)
[2019-02-20] MEDS: HYDROCODONE/ACETAMINOPHEN 5/325MG TABLET PO PRN ×3 (02:54→21:22)
[2019-02-20] MEDS: IPRATROPIUM/ALBUTEROL 0.5-3(2.5)MG/3ML NEB HHN SCH ×6 (03:52→20:03)
[2019-02-20 08:03] LABS: HEMATOCRIT. 32.2 % (42.0-52.0); HEMOGLOBIN. 11.4 g/dL (14.0-18.0); MEAN CORPUSCULAR HEMOGLOBIN 32.7 pg (28.0-32.0); MEAN CORPUSCULAR VOLUME 92.1 fL (80.0-94.0); MEAN PLATELET VOLUME 8.1 fl (7.4-10.4); PLATELET 176 x1000/uL (130-400); RED BLOOD CELL COUNT 3.49 mill/uL (4.7-6.1); RED CELL DISTRIBUTION WIDTH 13.4 % (11.6-14.6)
[2019-02-20 08:27] LABS: CHLORIDE 103 mEq/L (98-107)
[2019-02-20] MEDS: GUAIFENESIN 200MG/10ML SUGAR FREE UDC PO PRN ×2 (09:27→21:20)
[2019-02-20] MEDS: ENOXAPARIN 40MG/0.4ML SYR SUBCUT SCH (09:28)
[2019-02-20 10:26] LABS: PLATELET ESTIMATE NORMAL
[2019-02-20] MEDS: ZOLPIDEM TARTRATE 5MG TABLET PO SCH (21:20)
[2019-02-20] MEDS: THEOPHYLLINE ANHYDROUS 80 MG/15 ML 120ML PO SCH (21:20)
[2019-02-21] VITALS (7 sets, daily range): BP systolic 129–152; BP diastolic 73–104
[2019-02-21] MEDS: IPRATROPIUM/ALBUTEROL 0.5-3(2.5)MG/3ML NEB HHN SCH ×2 (00:12→04:08)
[2019-02-21] MEDS: GUAIFENESIN 200MG/10ML SUGAR FREE UDC PO PRN (04:05)
[2019-02-21] MEDS: METHYLPREDNISOLONE SOD SUCC 125 MG/2 ML VIAL IV SCH ×2 (04:05→08:58)
[2019-02-21] MEDS: HYDROCODONE/ACETAMINOPHEN 5/325MG TABLET PO PRN (04:06)
[2019-02-21 04:39] LABS: CHLORIDE 101 mEq/L (98-107)
[2019-02-21 05:16] LABS: HEMATOCRIT. 34.2 % (42.0-52.0); MEAN CORPUSCULAR VOLUME 93.8 fL (80.0-94.0); MEAN PLATELET VOLUME 8.5 fl (7.4-10.4); PLATELET 189 x1000/uL (130-400); RED BLOOD CELL COUNT 3.64 mill/uL (4.7-6.1); RED CELL DISTRIBUTION WIDTH 13.1 % (11.6-14.6)
[2019-02-21] MEDS: THEOPHYLLINE ANHYDROUS 80 MG/15 ML 120ML PO SCH (06:45)
[2019-02-21] MEDS ORDERED: FLUT1DIS3 INH (11:38)
[2019-02-21 22:13] LABS: PLATELET ESTIMATE NORMAL
== END 2019-02-21 15:05 | disposition home or self-care (01) | DRG 816 ==
LOC: ER 06:09 → 5EST 06:20 → EDBEDREQTM 06:27 → EDBEDREQ 06:27 → EDBEDREQSVC 06:41 → ENRESERV 07:38
PROVIDERS: ADMIT Internal Medicine; ATTEND Internal Medicine
PROC: 5A09357 Assistance with Respiratory Ventilation, Less than 24 Consecutive Hours, Continuous Positive Airway Pressure (ICD-10-PCS; principal; 2019-02-18)
DX: T40.5X1A Poisoning by cocaine, accidental (unintentional), initial encounter (principal); J96.20 Acute and chronic respiratory failure, unspecified whether with hypoxia or hypercapnia; J68.0 Bronchitis and pneumonitis due to chemicals, gases, fumes and vapors; T40.991A Poisoning by other psychodysleptics [hallucinogens], accidental (unintentional), initial encounter; J43.9 Emphysema, unspecified; I10 Essential (primary) hypertension; D64.9 Anemia, unspecified; M16.12 Unilateral primary osteoarthritis, left hip; R59.1 Generalized enlarged lymph nodes; M21.952 Unspecified acquired deformity of left thigh; J45.909 Unspecified asthma, uncomplicated; Z99.81 Dependence on supplemental oxygen; Z92.3 Personal history of irradiation; Z85.819 Personal history of malignant neoplasm of unspecified site of lip, oral cavity, and pharynx; Z79.899 Other long term (current) drug therapy; Y92.89 Other specified places as the place of occurrence of the external cause
CPT/HCPCS: 36415; 36600; 70490; 70543; 71045; 80048; 80061; 80305; 80320; 82375; 82550; 82553; 82805; 83605; 83735; 83880; 84100; 84145; 84439; 84443; 84481; 84484; 93005; 93970; 94640; 94660; 96374; 97162; 97165; 99291; A9577; J1650; J1956; J2930; J3475; J7611; J7620; G0480

== ENCOUNTER 2019-03-14 00:48 | Inpatient (IN) | payer MEDICAID ==
[2019-03-14] VITALS (10 sets, daily range): BP systolic 116–152; BP diastolic 63–92
[~2019-03-14] VITALS: Ht 175.3 cm; Wt 54.4 kg
[~2019-03-14 00:48] MED LIST changes: +ALBU18HF2 IH; -ALBU90AE INH; +FLUT1DIS3 INH; +GUAI600T44 PO; +HYDR-4009 MT; +LISI-186 MT; +P20 MT; +PANT40TA4 PO; -THE3 PO
[2019-03-14] MEDS ORDERED: ONDANSETRON HCL 4MG/2ML INJ IV STA (00:58)
[2019-03-14] MEDS ORDERED: IPRATROPIUM BROMIDE (0.02%) 0.5MG/2.5ML NEB HHN STA (00:58)
[2019-03-14] MEDS ORDERED: METHYLPREDNISOLONE SOD SUCC 125 MG/2 ML VIAL IV STA (00:58)
[2019-03-14] MEDS ORDERED: MAGNESIUM 2 G PREMIX 50 ML IV ONE (01:00)
[2019-03-14 01:21] LABS: BASOPHILS % 0.7 % (0.0-2.0); EOSINOPHILS % 6.7 % (0.0-5.0); HEMATOCRIT. 39.3 % (42.0-52.0); HEMOGLOBIN. 13.5 g/dL (14.0-18.0); LYMPHOCYTES % 19.7 % (20.0-50.0); MEAN CORPUSCULAR HEMOGLOBIN 32.6 pg (28.0-32.0); MEAN CORPUSCULAR VOLUME 94.9 fL (80.0-94.0); MEAN PLATELET VOLUME 7.6 fl (7.4-10.4); MONOCYTES % 11.2 % (2.0-8.0); NEUTROPHILS % 61.7 % (40.0-76.0); PLATELET 193 x1000/uL (130-400); RED BLOOD CELL COUNT 4.14 mill/uL (4.7-6.1); RED CELL DISTRIBUTION WIDTH 13.4 % (11.6-14.6)
[2019-03-14 01:27] LABS: CHLORIDE 107 mEq/L (98-107)
[2019-03-14] MEDS ORDERED: LORAZEPAM 2MG/ML CPJ IV ONE (02:00)
[2019-03-14] MEDS: ALBUTEROL (0.083%) 2.5MG/3ML NEB HHN SCH ×3 (03:40→04:40)
[2019-03-14] MEDS ORDERED: ALBUTEROL (0.083%) 2.5MG/3ML NEB ONE (04:14)
[2019-03-14] MEDS ORDERED: ONDANSETRON HCL 4MG/2ML INJ IV PRN (09:30)
[2019-03-14] MEDS ORDERED: DOCUSATE SODIUM 100MG CAPSULE PO PRN (09:30)
[2019-03-14] MEDS ORDERED: GUAIFENESIN 200MG/10ML SUGAR FREE UDC PO PRN (09:30)
[2019-03-14] MEDS ORDERED: MAGNESIUM/ALUMINUM HYDROXIDE/SIMETHICONE 30ML UDC PO PRN (09:30)
[2019-03-14] MEDS ORDERED: ACETAMINOPHEN 325MG TABLET PO PRN (09:30)
[2019-03-14] MEDS ORDERED: CLONIDINE 0.1MG TABLET PO PRN (09:30)
[2019-03-14] MEDS ORDERED: IPRATROPIUM/ALBUTEROL 0.5-3(2.5)MG/3ML NEB INH PRN (09:30)
[2019-03-14] MEDS: GUAIFENESIN 200MG/10ML SUGAR FREE UDC PO PRN ×2 (12:00→21:44)
[2019-03-14 13:41] LABS: PHOSPHORUS 3.4 mg/dL (2.5-4.9)
[2019-03-14] MEDS: METHYLPREDNISOLONE SOD SUCC 40 MG/ML VIAL IV SCH ×2 (14:59→21:44)
[2019-03-14] MEDS: IPRATROPIUM/ALBUTEROL 0.5-3(2.5)MG/3ML NEB HHN SCH ×2 (16:15→20:37)
[2019-03-14] MEDS: ACETYLCYSTEINE 100MG/ML 10% VIAL 4ML INH SCH ×2 (16:15→20:37)
[2019-03-14] MEDS ORDERED: ENOXAPARIN 40MG/0.4ML SYR SUBCUT SCH (21:00)
[2019-03-14 21:19] LABS: *AMPHETAMINES SCREEN URINE NEGATIVE (NEGATIVE); *BARBITURATES SCREEN URINE NEGATIVE (NEGATIVE); *BENZODIAZEPINES SCREEN URINE NEGATIVE (NEGATIVE); *COCAINE SCREEN URINE PRESUMTIVE POSITIVE (NEGATIVE); METHADONE URINE SCREEN NEGATIVE (NEGATIVE); OPIATES URINE SCREEN NEGATIVE (NEGATIVE)
[2019-03-14 21:20] LABS: CANNABINOID URINE SCREEN NEGATIVE (NEGATIVE); PHENCYCLIDINE URINE SCREEN PRESUMTIVE POSITIVE (NEGATIVE)
[2019-03-14] MEDS ORDERED: ZOLPIDEM TARTRATE 5MG TABLET PO PRN (22:15)
[2019-03-14] MEDS: PROMETHAZINE/DEXTROMETHORPHAN 6.25-15MG/5ML BOTTLE 120ML PO PRN (22:50)
[2019-03-15] VITALS: BP 127/77
[2019-03-15] MEDS: IPRATROPIUM/ALBUTEROL 0.5-3(2.5)MG/3ML NEB HHN SCH ×3 (00:29→08:39)
[2019-03-15 02:00] VITALS: BP 155/86
[2019-03-15 04:00] VITALS: BP 110/56
[2019-03-15] MEDS: PROMETHAZINE/DEXTROMETHORPHAN 6.25-15MG/5ML BOTTLE 120ML PO PRN (05:43)
[2019-03-15 05:57] LABS: HEMATOCRIT. 31.8 % (42.0-52.0); HEMOGLOBIN. 11.2 g/dL (14.0-18.0); MEAN CORPUSCULAR HEMOGLOBIN 33.2 pg (28.0-32.0); MEAN CORPUSCULAR VOLUME 94.2 fL (80.0-94.0); MEAN PLATELET VOLUME 7.9 fl (7.4-10.4); PLATELET 181 x1000/uL (130-400); RED BLOOD CELL COUNT 3.37 mill/uL (4.7-6.1); RED CELL DISTRIBUTION WIDTH 12.9 % (11.6-14.6)
[2019-03-15 05:59] LABS: CHLORIDE 104 mEq/L (98-107)
[2019-03-15 06:00] VITALS: BP 118/60
[2019-03-15 06:10] LABS: LDL CHOLESTEROL 110 mg/dL (5-100)
[2019-03-15 06:13] LABS: HDL CHOLESTEROL 66 mg/dL (40-59)
[2019-03-15] MEDS: METHYLPREDNISOLONE SOD SUCC 40 MG/ML VIAL IV SCH (06:32)
[2019-03-15 07:50] VITALS: BP 157/91
[2019-03-15] MEDS: ACETYLCYSTEINE 100MG/ML 10% VIAL 4ML INH SCH (08:39)
[2019-03-15 09:22] VITALS: BP 157/91
[2019-03-15 10:00] LABS: PLATELET ESTIMATE NORMAL
== END 2019-03-15 09:45 | disposition home or self-care (01) | DRG 816 ==
LOC: ER 01:01 → 3WST 03:32 → EDBEDREQ 03:37 → EDBEDREQSVC 03:37 → EDBEDREQTM 03:37 → ENRESERV 04:45
PROVIDERS: ADMIT Internal Medicine; ATTEND Internal Medicine
PROC: 5A09357 Assistance with Respiratory Ventilation, Less than 24 Consecutive Hours, Continuous Positive Airway Pressure (ICD-10-PCS; principal; 2019-03-14)
DX: T40.5X1A Poisoning by cocaine, accidental (unintentional), initial encounter (principal); J96.00 Acute respiratory failure, unspecified whether with hypoxia or hypercapnia; T40.991A Poisoning by other psychodysleptics [hallucinogens], accidental (unintentional), initial encounter; I11.0 Hypertensive heart disease with heart failure; I50.9 Heart failure, unspecified; J68.0 Bronchitis and pneumonitis due to chemicals, gases, fumes and vapors; F14.10 Cocaine abuse, uncomplicated; D53.9 Nutritional anemia, unspecified; F16.10 Hallucinogen abuse, uncomplicated; M16.12 Unilateral primary osteoarthritis, left hip; M21.952 Unspecified acquired deformity of left thigh; Z79.51 Long term (current) use of inhaled steroids; Z85.819 Personal history of malignant neoplasm of unspecified site of lip, oral cavity, and pharynx; Z92.3 Personal history of irradiation; Y92.89 Other specified places as the place of occurrence of the external cause; Z99.81 Dependence on supplemental oxygen; Z79.899 Other long term (current) drug therapy
CPT/HCPCS: 36415; 71045; 80061; 80305; 83605; 83735; 83880; 84100; 84484; 93005; 93970; 94640; 94660; 97166; 99291; J1650; J2060; J2405; J2920; J2930; J3475; J7608; J7611; J7620

== ENCOUNTER 2019-03-17 06:04 | Inpatient (IN) | payer MEDICAID ==
[2019-03-17] VITALS (9 sets, daily range): BP systolic 100–164; BP diastolic 56–98
[~2019-03-17] VITALS: Ht 177.8 cm; Wt 57.0 kg
[2019-03-17] MEDS ORDERED: MAGNESIUM/ALUMINUM HYDROXIDE/SIMETHICONE 30ML UDC PO PRN (06:45)
[2019-03-17] MEDS ORDERED: NA PHOS,M-B/NA PHOS,DI-BA ENEMA 118ML PR PRN (06:45)
[2019-03-17] MEDS ORDERED: ACETAMINOPHEN 325MG TABLET PO PRN (06:45)
[2019-03-17] MEDS ORDERED: DIPHENHYDRAMINE 50MG/ML VIAL IV PRN (06:45)
[2019-03-17] MEDS ORDERED: IPRATROPIUM/ALBUTEROL 0.5-3(2.5)MG/3ML NEB HHN PRN (06:45)
[2019-03-17] MEDS ORDERED: CLONIDINE 0.1MG TABLET PO PRN (06:45)
[2019-03-17] MEDS ORDERED: ONDANSETRON HCL 4MG/2ML INJ IV PRN (06:45)
[2019-03-17] MEDS ORDERED: DOCUSATE SODIUM 100MG CAPSULE PO PRN (06:45)
[2019-03-17 07:28] LABS: HEMATOCRIT. 35.7 % (42.0-52.0); HEMOGLOBIN. 12.5 g/dL (14.0-18.0); MEAN CORPUSCULAR HEMOGLOBIN 32.8 pg (28.0-32.0); MEAN CORPUSCULAR VOLUME 93.6 fL (80.0-94.0); MEAN PLATELET VOLUME 7.4 fl (7.4-10.4); PLATELET 218 x1000/uL (130-400); RED BLOOD CELL COUNT 3.81 mill/uL (4.7-6.1); RED CELL DISTRIBUTION WIDTH 13.4 % (11.6-14.6)
[2019-03-17 07:35] LABS: PROTHROMBIN TIME 10.4 sec (9.6-11.0)
[2019-03-17 07:36] LABS: CHLORIDE 106 mEq/L (98-107)
[2019-03-17 07:44] LABS: CLARITY URINE CLEAR (CLEAR); COLOR URINE YELLOW (YELLOW); KETONES URINE NEGATIVE (NEGATIVE); LEUKOCYTE ESTERASE URINE NEGATIVE (NEGATIVE); NITRITE URINE NEGATIVE (NEGATIVE); OCCULT BLOOD URINE NEGATIVE (NEGATIVE); PROTEIN URINE NEGATIVE (NEGATIVE); SPECIFIC GRAVITY URINE 1.012 (1.005-1.030)
[2019-03-17 08:07] LABS: *AMPHETAMINES SCREEN URINE NEGATIVE (NEGATIVE); *BARBITURATES SCREEN URINE NEGATIVE (NEGATIVE); *BENZODIAZEPINES SCREEN URINE NEGATIVE (NEGATIVE); *COCAINE SCREEN URINE PRESUMTIVE POSITIVE (NEGATIVE); OPIATES URINE SCREEN NEGATIVE (NEGATIVE)
[2019-03-17 08:08] LABS: CANNABINOID URINE SCREEN NEGATIVE (NEGATIVE); PHENCYCLIDINE URINE SCREEN PRESUMTIVE POSITIVE (NEGATIVE)
[2019-03-17 08:10] LABS: METHADONE URINE SCREEN NEGATIVE (NEGATIVE)
[2019-03-17 08:43] LABS: PLATELET ESTIMATE NORMAL
[2019-03-17] MEDS: BUDESONIDE 0.5MG/2ML NEB HHN SCH (09:21)
[2019-03-17 11:15] LABS: T4 FREE 1.23 ng/dL (0.76-1.46)
[2019-03-17] MEDS: ENOXAPARIN 40MG/0.4ML SYR SUBCUT SCH (11:19)
[2019-03-17] MEDS: MORPHINE SULFATE 2 MG/ML CPJ (NOT FOR IM USE) IV PRN ×3 (11:20→21:24)
[2019-03-17] MEDS: GUAIFENESIN 200MG/10ML SUGAR FREE UDC PO PRN (13:00)
[2019-03-17] MEDS: SODIUM CHLORIDE 0.9% INJ 3ML FLUSH IVF SCH ×2 (14:39→21:24)
[2019-03-17] MEDS: METHYLPREDNISOLONE SOD SUCC 40 MG/ML VIAL IV SCH (18:30)
[2019-03-17 18:32] LABS: CREATINE KINASE 137 IU/L (39-308)
[2019-03-17 18:33] LABS: CREATINE KINASE MB FRACTION 4.4 ng/mL (0.5-3.6)
[2019-03-17] MEDS: IPRATROPIUM/ALBUTEROL 0.5-3(2.5)MG/3ML NEB HHN SCH (20:25)
[2019-03-17] MEDS: LORAZEPAM 2MG/ML CPJ IV PRN (22:15)
[2019-03-18] VITALS (15 sets, daily range): BP systolic 108–157; BP diastolic 32–100
[2019-03-18 00:12] LABS: CREATINE KINASE 121 IU/L (39-308)
[2019-03-18 00:14] LABS: CREATINE KINASE MB FRACTION 4.1 ng/mL (0.5-3.6)
[2019-03-18] MEDS: IPRATROPIUM/ALBUTEROL 0.5-3(2.5)MG/3ML NEB HHN SCH ×6 (00:26→21:06)
[2019-03-18] MEDS: METHYLPREDNISOLONE SOD SUCC 40 MG/ML VIAL IV SCH ×4 (00:37→18:12)
[2019-03-18] MEDS: SODIUM CHLORIDE 0.9% INJ 3ML FLUSH IVF SCH ×3 (05:40→22:00)
[2019-03-18 06:17] LABS: CHLORIDE 102 mEq/L (98-107)
[2019-03-18 06:28] LABS: BASOPHILS % 0.1 % (0.0-2.0); EOSINOPHILS % 0.2 % (0.0-5.0); HEMATOCRIT. 38.4 % (42.0-52.0); HEMOGLOBIN. 13.1 g/dL (14.0-18.0); LYMPHOCYTES % 9.5 % (20.0-50.0); MEAN CORPUSCULAR HEMOGLOBIN 32.4 pg (28.0-32.0); MEAN CORPUSCULAR VOLUME 94.9 fL (80.0-94.0); MEAN PLATELET VOLUME 7.9 fl (7.4-10.4); MONOCYTES % 8.5 % (2.0-8.0); NEUTROPHILS % 81.7 % (40.0-76.0); PLATELET 240 x1000/uL (130-400); RED BLOOD CELL COUNT 4.04 mill/uL (4.7-6.1); RED CELL DISTRIBUTION WIDTH 13.2 % (11.6-14.6)
[2019-03-18] MEDS: MORPHINE SULFATE 2 MG/ML CPJ (NOT FOR IM USE) IV PRN ×4 (06:30→22:38)
[2019-03-18] MEDS: GUAIFENESIN 200MG/10ML SUGAR FREE UDC PO PRN ×2 (09:09→22:41)
[2019-03-18] MEDS: ENOXAPARIN 40MG/0.4ML SYR SUBCUT SCH (11:56)
[2019-03-18] MEDS: BENZONATATE 100MG CAPSULE PO PRN (13:04)
[2019-03-18] MEDS: HYDRALAZINE HCL 25MG TABLET PO SCH (20:35)
[2019-03-18] MEDS: GUAIFENESIN 600MG ER TABLET PO SCH (20:36)
[2019-03-18] MEDS: BUDESONIDE 0.5MG/2ML NEB HHN SCH (21:05)
[2019-03-18] MEDS: LORAZEPAM 2MG/ML CPJ IV PRN (22:38)
[2019-03-19] VITALS (12 sets, daily range): BP systolic 133–164; BP diastolic 70–104
[2019-03-19] MEDS: IPRATROPIUM/ALBUTEROL 0.5-3(2.5)MG/3ML NEB HHN SCH ×6 (01:07→21:54)
[2019-03-19] MEDS: GUAIFENESIN 200MG/10ML SUGAR FREE UDC PO PRN ×2 (05:40→19:03)
[2019-03-19] MEDS: LORAZEPAM 2MG/ML CPJ IV PRN ×2 (05:40→22:35)
[2019-03-19] MEDS: SODIUM CHLORIDE 0.9% INJ 3ML FLUSH IVF SCH ×3 (05:41→22:19)
[2019-03-19] MEDS: MORPHINE SULFATE 2 MG/ML CPJ (NOT FOR IM USE) IV PRN (05:41)
[2019-03-19] MEDS: HYDRALAZINE HCL 25MG TABLET PO SCH ×2 (10:27→22:19)
[2019-03-19] MEDS: GUAIFENESIN 600MG ER TABLET PO SCH ×2 (10:27→22:19)
[2019-03-19] MEDS: METHYLPREDNISOLONE SOD SUCC 40 MG/ML VIAL IV SCH ×2 (10:28→18:03)
[2019-03-19] MEDS: ENOXAPARIN 40MG/0.4ML SYR SUBCUT SCH (16:02)
[2019-03-19] MEDS: HYDROCODONE/ACETAMINOPHEN 10/325MG TABLET PO PRN ×2 (18:03→22:36)
[2019-03-19] MEDS: BUDESONIDE 0.5MG/2ML NEB HHN SCH (21:54)
[2019-03-20] VITALS (11 sets, daily range): BP systolic 122–162; BP diastolic 69–103
[2019-03-20] MEDS: BENZONATATE 100MG CAPSULE PO PRN ×3 (02:34→22:27)
[2019-03-20] MEDS: IPRATROPIUM/ALBUTEROL 0.5-3(2.5)MG/3ML NEB HHN SCH ×6 (03:59→21:48)
[2019-03-20] MEDS: SODIUM CHLORIDE 0.9% INJ 3ML FLUSH IVF SCH ×3 (05:57→20:33)
[2019-03-20 07:38] LABS: CHLORIDE 101 mEq/L (98-107)
[2019-03-20] MEDS: GUAIFENESIN 600MG ER TABLET PO SCH ×2 (08:10→20:32)
[2019-03-20] MEDS: METHYLPREDNISOLONE SOD SUCC 40 MG/ML VIAL IV SCH ×2 (08:10→16:49)
[2019-03-20] MEDS: HYDRALAZINE HCL 25MG TABLET PO SCH ×2 (08:10→20:32)
[2019-03-20 08:24] LABS: BASOPHILS % 0.4 % (0.0-2.0); HEMOGLOBIN. 11.5 g/dL (14.0-18.0); LYMPHOCYTES % 8.9 % (20.0-50.0); MEAN CORPUSCULAR HEMOGLOBIN 33.7 pg (28.0-32.0); MEAN CORPUSCULAR VOLUME 94.2 fL (80.0-94.0); MEAN PLATELET VOLUME 7.9 fl (7.4-10.4); MONOCYTES % 6.2 % (2.0-8.0); NEUTROPHILS % 84.5 % (40.0-76.0); PLATELET 222 x1000/uL (130-400); RED CELL DISTRIBUTION WIDTH 12.9 % (11.6-14.6)
[2019-03-20] MEDS: ENOXAPARIN 40MG/0.4ML SYR SUBCUT SCH (12:35)
[2019-03-20] MEDS: MORPHINE SULFATE 2 MG/ML CPJ (NOT FOR IM USE) IV PRN ×2 (13:42→20:31)
[2019-03-20] MEDS: BUDESONIDE 0.5MG/2ML NEB HHN SCH (15:55)
[2019-03-20] MEDS: LORAZEPAM 2MG/ML CPJ IV PRN (22:27)
[2019-03-21] VITALS (7 sets, daily range): BP systolic 124–162; BP diastolic 73–99
[2019-03-21] MEDS: BENZONATATE 100MG CAPSULE PO PRN (06:23)
[2019-03-21] MEDS: SODIUM CHLORIDE 0.9% INJ 3ML FLUSH IVF SCH (06:23)
[2019-03-21] MEDS: MORPHINE SULFATE 2 MG/ML CPJ (NOT FOR IM USE) IV PRN (06:24)
[2019-03-21] MEDS: HYDRALAZINE HCL 25MG TABLET PO SCH (08:11)
[2019-03-21] MEDS: METHYLPREDNISOLONE SOD SUCC 40 MG/ML VIAL IV SCH (08:11)
[2019-03-21] MEDS: GUAIFENESIN 600MG ER TABLET PO SCH (08:11)
== END 2019-03-21 15:16 | disposition home or self-care (01) | DRG 816 ==
LOC: ER 06:04 → 5EST 06:05 → EDBEDREQ 06:43 → EDBEDREQTM 06:43 → EDBEDREQ 06:58 → CANRESERV 07:38 → ENRESERV 07:38 → 6EST 09:23 → 5EST 09:28
PROVIDERS: ADMIT Internal Medicine; ATTEND Internal Medicine
PROC: 5A09357 Assistance with Respiratory Ventilation, Less than 24 Consecutive Hours, Continuous Positive Airway Pressure (ICD-10-PCS; principal; 2019-03-17)
DX: T40.5X1A Poisoning by cocaine, accidental (unintentional), initial encounter (principal); J96.00 Acute respiratory failure, unspecified whether with hypoxia or hypercapnia; E46 Unspecified protein-calorie malnutrition; I11.0 Hypertensive heart disease with heart failure; I50.9 Heart failure, unspecified; D64.9 Anemia, unspecified; J68.0 Bronchitis and pneumonitis due to chemicals, gases, fumes and vapors; E78.5 Hyperlipidemia, unspecified; F14.10 Cocaine abuse, uncomplicated; F17.210 Nicotine dependence, cigarettes, uncomplicated; M16.12 Unilateral primary osteoarthritis, left hip; M21.952 Unspecified acquired deformity of left thigh; Z79.899 Other long term (current) drug therapy; Y92.89 Other specified places as the place of occurrence of the external cause; Z85.819 Personal history of malignant neoplasm of unspecified site of lip, oral cavity, and pharynx; Z92.3 Personal history of irradiation; Z99.81 Dependence on supplemental oxygen; Z68.1 Body mass index [BMI] 19.9 or less, adult; Z71.6 Tobacco abuse counseling
CPT/HCPCS: 36415; 71045; 80048; 80061; 80305; 81003; 82550; 82553; 83036; 83605; 83880; 84145; 84439; 84443; 84484; 85379; 93005; 93306; 94640; 94660; 99285; J1650; J2060; J2270; J2920; J7620; J7626

== ENCOUNTER 2019-04-15 12:03 | Inpatient (IN) | payer MEDICAID ==
[~2019-04-15] VITALS: Ht 175.3 cm; Wt 59.9 kg
[~2019-04-15 12:03] MED LIST changes: +BENZ-16 MT; +PRED5TAB MT
[2019-04-15] MEDS ORDERED: METHYLPREDNISOLONE SOD SUCC 125 MG/2 ML VIAL IV STA (12:17)
[2019-04-15] MEDS ORDERED: ALBUTEROL (0.083%) 2.5MG/3ML NEB HHN STA (12:17)
[2019-04-15] MEDS ORDERED: IPRATROPIUM BROMIDE (0.02%) 0.5MG/2.5ML NEB HHN STA (12:17)
[2019-04-15 12:43] LABS: BASOPHILS % 1.1 % (0.0-2.0); HEMATOCRIT. 36.7 % (42.0-52.0); HEMOGLOBIN. 12.8 g/dL (14.0-18.0); LYMPHOCYTES % 22.3 % (20.0-50.0); MEAN CORPUSCULAR HEMOGLOBIN 33.6 pg (28.0-32.0); MEAN CORPUSCULAR VOLUME 96.5 fL (80.0-94.0); MEAN PLATELET VOLUME 7.7 fl (7.4-10.4); MONOCYTES % 7.8 % (2.0-8.0); NEUTROPHILS % 57.8 % (40.0-76.0); PLATELET 200 x1000/uL (130-400); RED CELL DISTRIBUTION WIDTH 13.3 % (11.6-14.6)
[2019-04-15 12:49] LABS: CHLORIDE 106 mEq/L (98-107)
[2019-04-15] MEDS ORDERED: KETOROLAC 30MG/ML VIAL IV ONE (13:00)
[2019-04-15] MEDS ORDERED: ACETAMINOPHEN 325MG TABLET PO PRN (14:00)
[2019-04-15] MEDS ORDERED: ONDANSETRON HCL 4MG/2ML INJ IV PRN (14:00)
[2019-04-15] MEDS ORDERED: DOCUSATE SODIUM 100MG CAPSULE PO PRN (14:00)
[2019-04-15] MEDS ORDERED: GUAIFENESIN 200MG/10ML SUGAR FREE UDC PO PRN (14:00)
[2019-04-15] MEDS ORDERED: MAGNESIUM/ALUMINUM HYDROXIDE/SIMETHICONE 30ML UDC PO PRN (14:00)
[2019-04-15] MEDS ORDERED: IPRATROPIUM/ALBUTEROL 0.5-3(2.5)MG/3ML NEB HHN PRN ×2 (14:00)
[2019-04-15] MEDS ORDERED: DIPHENHYDRAMINE 50MG/ML VIAL IV PRN (14:00)
[2019-04-15 14:15] LABS: PHOSPHORUS 3.2 mg/dL (2.5-4.9)
[2019-04-15 15:27] LABS: BG BASE EXCESS 0.6 mmol/L (-2.0-2.0); BG CARBOXYHEMOGLOBIN 0.8 % (0.5-1.5); BG DEOXYHEMOGLOBIN 1.7 % (0.0-5.0); BG FRACTION INSPIRED OXYGEN 40; BG HCO3 ACT 26.3 mmol/L (22.0-26.0); BG METHEMOGLOBIN 0.2 % (0.0-1.5); BG OXYGEN SATURATION 98.3 % (92.0-98.5); BG OXYHEMOGLOBIN 97.3 % (94.0-97.0); BG PCO2 46.5 mmHg (35.0-45.0); BG PO2 146.7 mmHg (75.0-100.0); BG PRESSURE SUPPORT 7; BG SAMPLE SITE LEFT RADIAL; BG TOTAL HEMOGLOBIN 12.7 g/dL (12.0-18.0); BG VENT MODE MASK - BIPAP; BG VENT RATE 12 set
[2019-04-15 17:33] LABS: FOLIC ACID (FOLATE) SERUM >20 ng/mL ng/mL (>5.38)
[2019-04-15 17:44] LABS: VITAMIN B12 SERUM 428 pg/mL (211-911)
[2019-04-15 17:49] VITALS: BP 159/79
[2019-04-15] MEDS ORDERED: TERBUTALINE SULFATE 1MG/ML VIAL SUBCUT NR (18:06)
[2019-04-15] MEDS ORDERED: DEXTROSE 50% WATER 50ML SYRINGE IV PRN ×2 (18:15)
[2019-04-15] MEDS: ENOXAPARIN 40MG/0.4ML SYR SUBCUT SCH (18:40)
[2019-04-15 20:00] VITALS: BP 130/77
[2019-04-15] MEDS ORDERED: MAGNESIUM 2 G PREMIX 50 ML IV NR (20:00)
[2019-04-15] MEDS: BLOOD SUGAR DIAGNOSTIC STRIP TEST SCH (21:00)
[2019-04-15 22:00] VITALS: BP 115/60
[2019-04-15] MEDS: IPRATROPIUM/ALBUTEROL 0.5-3(2.5)MG/3ML NEB HHN SCH (22:35)
[2019-04-15] MEDS: INSULIN LISPRO 100 UNITS/ML SUBCUT SCH (22:49)
[2019-04-15] MEDS: THEOPHYLLINE ANHYDROUS 80 MG/15 ML 120ML PO SCH (22:50)
[2019-04-15] MEDS: METHYLPREDNISOLONE SOD SUCC 125 MG/2 ML VIAL IV SCH (22:51)
[2019-04-15 23:22] VITALS: BP 115/60
[2019-04-16] VITALS: BP 145/83
[2019-04-16] MEDS: ACETYLCYSTEINE 100MG/ML 10% VIAL 4ML INH SCH ×3 (01:24→16:51)
[2019-04-16] MEDS: IPRATROPIUM/ALBUTEROL 0.5-3(2.5)MG/3ML NEB HHN SCH ×6 (01:24→20:23)
[2019-04-16] MEDS: THEOPHYLLINE ANHYDROUS 80 MG/15 ML 120ML PO SCH ×3 (06:10→21:41)
[2019-04-16] MEDS: METHYLPREDNISOLONE SOD SUCC 125 MG/2 ML VIAL IV SCH ×3 (06:10→21:41)
[2019-04-16] MEDS: BLOOD SUGAR DIAGNOSTIC STRIP TEST SCH ×2 (06:10→11:50)
[2019-04-16 07:07] LABS: HEMOGLOBIN. 12.2 g/dL (14.0-18.0); MEAN CORPUSCULAR HEMOGLOBIN 33.5 pg (28.0-32.0); MEAN CORPUSCULAR VOLUME 96.2 fL (80.0-94.0); MEAN PLATELET VOLUME 8.2 fl (7.4-10.4); PLATELET 211 x1000/uL (130-400); RED BLOOD CELL COUNT 3.64 mill/uL (4.7-6.1); RED CELL DISTRIBUTION WIDTH 13.5 % (11.6-14.6)
[2019-04-16 07:14] LABS: CHLORIDE 104 mEq/L (98-107)
[2019-04-16 07:29] LABS: LDL CHOLESTEROL 108 mg/dL (5-100)
[2019-04-16 07:31] LABS: HDL CHOLESTEROL 75 mg/dL (40-59)
[2019-04-16 07:37] LABS: CLARITY URINE CLEAR (CLEAR); COLOR URINE YELLOW (YELLOW); KETONES URINE NEGATIVE (NEGATIVE); LEUKOCYTE ESTERASE URINE NEGATIVE (NEGATIVE); NITRITE URINE NEGATIVE (NEGATIVE); OCCULT BLOOD URINE NEGATIVE (NEGATIVE); PROTEIN URINE 1+ (NEGATIVE); SPECIFIC GRAVITY URINE 1.035 (1.005-1.030)
[2019-04-16 07:55] LABS: *AMPHETAMINES SCREEN URINE NEGATIVE (NEGATIVE); *BARBITURATES SCREEN URINE NEGATIVE (NEGATIVE); *BENZODIAZEPINES SCREEN URINE NEGATIVE (NEGATIVE); *COCAINE SCREEN URINE PRESUMTIVE POSITIVE (NEGATIVE); METHADONE URINE SCREEN NEGATIVE (NEGATIVE)
[2019-04-16 07:56] LABS: CANNABINOID URINE SCREEN NEGATIVE (NEGATIVE); OPIATES URINE SCREEN PRESUMTIVE POSITIVE (NEGATIVE); PHENCYCLIDINE URINE SCREEN PRESUMTIVE POSITIVE (NEGATIVE)
[2019-04-16] MEDS: INSULIN LISPRO 100 UNITS/ML SUBCUT SCH ×2 (08:36→12:04)
[2019-04-16] MEDS: HYDROCODONE/ACETAMINOPHEN 10/325MG TABLET PO PRN ×2 (10:08→21:41)
[2019-04-16] MEDS: ENOXAPARIN 40MG/0.4ML SYR SUBCUT SCH (17:59)
[2019-04-16 20:00] VITALS: BP 150/82
[2019-04-16 22:00] VITALS: BP 141/86
[2019-04-16] MEDS: ZOLPIDEM TARTRATE 5MG TABLET PO PRN (23:14)
[2019-04-17] VITALS (10 sets, daily range): BP systolic 131–161; BP diastolic 79–92
[2019-04-17] MEDS: ACETYLCYSTEINE 100MG/ML 10% VIAL 4ML INH SCH ×3 (00:57→16:34)
[2019-04-17] MEDS: IPRATROPIUM/ALBUTEROL 0.5-3(2.5)MG/3ML NEB HHN SCH ×5 (00:57→20:28)
[2019-04-17] MEDS: METHYLPREDNISOLONE SOD SUCC 125 MG/2 ML VIAL IV SCH ×3 (05:23→21:38)
[2019-04-17] MEDS: BENZONATATE 100MG CAPSULE PO PRN ×2 (05:24→15:21)
[2019-04-17] MEDS: THEOPHYLLINE ANHYDROUS 80 MG/15 ML 120ML PO SCH ×3 (05:24→21:39)
[2019-04-17 08:46] LABS: PLATELET ESTIMATE NORMAL
[2019-04-17] MEDS: HYDROCODONE/ACETAMINOPHEN 10/325MG TABLET PO PRN ×2 (15:21→21:39)
[2019-04-17] MEDS: ENOXAPARIN 40MG/0.4ML SYR SUBCUT SCH (17:08)
[2019-04-17] MEDS: ZOLPIDEM TARTRATE 5MG TABLET PO PRN (21:39)
[2019-04-18] VITALS (17 sets, daily range): BP systolic 134–172; BP diastolic 74–98
[2019-04-18] MEDS: IPRATROPIUM/ALBUTEROL 0.5-3(2.5)MG/3ML NEB HHN SCH ×6 (04:00→20:33)
[2019-04-18] MEDS: METHYLPREDNISOLONE SOD SUCC 125 MG/2 ML VIAL IV SCH ×3 (05:50→22:00)
[2019-04-18] MEDS: THEOPHYLLINE ANHYDROUS 80 MG/15 ML 120ML PO SCH ×3 (05:50→22:00)
[2019-04-18] MEDS: ACETYLCYSTEINE 100MG/ML 10% VIAL 4ML INH SCH ×3 (08:16→16:33)
[2019-04-18] MEDS ORDERED: LIDOCAINE HCL/PF 1% 2ML VIAL ONE (10:41)
[2019-04-18] MEDS: BENZONATATE 100MG CAPSULE PO PRN (11:07)
[2019-04-18] MEDS: HYDROCODONE/ACETAMINOPHEN 10/325MG TABLET PO PRN (11:07)
[2019-04-18 16:27] LABS: BG BASE EXCESS 4.1 mmol/L (-2.0-2.0); BG CARBOXYHEMOGLOBIN 0.3 % (0.5-1.5); BG DEOXYHEMOGLOBIN 10.7 % (0.0-5.0); BG FRACTION INSPIRED OXYGEN 21; BG HCO3 ACT 29.1 mmol/L (22.0-26.0); BG METHEMOGLOBIN 0.1 % (0.0-1.5); BG OXYGEN SATURATION 89.3 % (92.0-98.5); BG OXYHEMOGLOBIN 88.9 % (94.0-97.0); BG PCO2 45.5 mmHg (35.0-45.0); BG PH 7.424 (7.350-7.450); BG PO2 55.3 mmHg (75.0-100.0); BG SAMPLE SITE RIGHT RADIAL; BG TOTAL HEMOGLOBIN 11.9 g/dL (12.0-18.0); BG VENT MODE ROOM AIR
[2019-04-18] MEDS: CLONIDINE 0.1MG TABLET PO PRN (18:48)
[2019-04-18] MEDS: ENOXAPARIN 40MG/0.4ML SYR SUBCUT SCH (18:50)
[2019-04-18] MEDS: ZOLPIDEM TARTRATE 5MG TABLET PO PRN (22:37)
[2019-04-19] VITALS (8 sets, daily range): BP systolic 112–169; BP diastolic 67–100
[2019-04-19] MEDS: ACETYLCYSTEINE 100MG/ML 10% VIAL 4ML INH SCH ×3 (00:40→16:53)
[2019-04-19] MEDS: IPRATROPIUM/ALBUTEROL 0.5-3(2.5)MG/3ML NEB HHN SCH ×6 (00:41→21:08)
[2019-04-19] MEDS: METHYLPREDNISOLONE SOD SUCC 125 MG/2 ML VIAL IV SCH (06:00)
[2019-04-19] MEDS: THEOPHYLLINE ANHYDROUS 80 MG/15 ML 120ML PO SCH ×3 (06:49→20:43)
[2019-04-19 12:20] LABS: BASOPHILS % 0.2 % (0.0-2.0); EOSINOPHILS % 0.1 % (0.0-5.0); HEMATOCRIT. 33.6 % (42.0-52.0); HEMOGLOBIN. 11.9 g/dL (14.0-18.0); MEAN CORPUSCULAR HEMOGLOBIN 33.7 pg (28.0-32.0); MEAN CORPUSCULAR VOLUME 95.1 fL (80.0-94.0); MEAN PLATELET VOLUME 7.5 fl (7.4-10.4); MONOCYTES % 11.8 % (2.0-8.0); NEUTROPHILS % 78.9 % (40.0-76.0); PLATELET 210 x1000/uL (130-400); RED BLOOD CELL COUNT 3.54 mill/uL (4.7-6.1); RED CELL DISTRIBUTION WIDTH 13.3 % (11.6-14.6)
[2019-04-19 12:45] LABS: CHLORIDE 102 mEq/L (98-107)
[2019-04-19] MEDS: CLONIDINE 0.1MG TABLET PO PRN (13:03)
[2019-04-19] MEDS: ENOXAPARIN 40MG/0.4ML SYR SUBCUT SCH (18:30)
[2019-04-19] MEDS: HYDROCODONE/ACETAMINOPHEN 10/325MG TABLET PO PRN (21:03)
[2019-04-19] MEDS: ZOLPIDEM TARTRATE 5MG TABLET PO PRN (22:26)
[2019-04-20] VITALS: BP 139/76
[2019-04-20] MEDS: IPRATROPIUM/ALBUTEROL 0.5-3(2.5)MG/3ML NEB HHN SCH ×6 (01:08→21:34)
[2019-04-20] MEDS: ACETYLCYSTEINE 100MG/ML 10% VIAL 4ML INH SCH ×3 (01:18→16:53)
[2019-04-20 03:52] VITALS: BP 120/75
[2019-04-20] MEDS: THEOPHYLLINE ANHYDROUS 80 MG/15 ML 120ML PO SCH ×3 (05:16→21:51)
[2019-04-20 08:00] VITALS: BP 123/76
[2019-04-20] MEDS: PREDNISONE 20MG TABLET PO SCH (09:01)
[2019-04-20] MEDS: HYDROCODONE/ACETAMINOPHEN 10/325MG TABLET PO PRN ×2 (10:04→18:33)
[2019-04-20 12:00] VITALS: BP 143/86
[2019-04-20 16:00] VITALS: BP 138/83
[2019-04-20] MEDS: ENOXAPARIN 40MG/0.4ML SYR SUBCUT SCH (18:39)
[2019-04-20 20:00] VITALS: BP 134/60
[2019-04-20] MEDS: ZOLPIDEM TARTRATE 5MG TABLET PO PRN (21:51)
[2019-04-21] VITALS (7 sets, daily range): BP systolic 123–148; BP diastolic 65–88
[2019-04-21] MEDS: IPRATROPIUM/ALBUTEROL 0.5-3(2.5)MG/3ML NEB HHN SCH ×7 (01:50→23:35)
[2019-04-21] MEDS: THEOPHYLLINE ANHYDROUS 80 MG/15 ML 120ML PO SCH ×3 (06:07→21:50)
[2019-04-21] MEDS: PREDNISONE 20MG TABLET PO SCH (09:05)
[2019-04-21 11:47] LABS: BG BASE EXCESS -0.1 mmol/L (-2.0-2.0); BG CARBOXYHEMOGLOBIN 0.3 % (0.5-1.5); BG DEOXYHEMOGLOBIN 4.9 % (0.0-5.0); BG METHEMOGLOBIN 0.1 % (0.0-1.5); BG OXYGEN SATURATION 95.1 % (92.0-98.5); BG OXYHEMOGLOBIN 94.7 % (94.0-97.0); BG PCO2 37.1 mmHg (35.0-45.0); BG PH 7.429 (7.350-7.450); BG SAMPLE SITE RIGHT RADIAL; BG TOTAL HEMOGLOBIN 9.7 g/dL (12.0-18.0); BG VENT MODE ROOM AIR
[2019-04-21] MEDS: ENOXAPARIN 40MG/0.4ML SYR SUBCUT SCH (18:50)
[2019-04-21] MEDS ORDERED: ZOLPIDEM TARTRATE 5MG TABLET PO PRN (20:30)
[2019-04-21] MEDS: HYDROCODONE/ACETAMINOPHEN 10/325MG TABLET PO PRN (20:56)
[2019-04-22] VITALS: BP 125/83
[2019-04-22 04:00] VITALS: BP 108/63
[2019-04-22] MEDS: IPRATROPIUM/ALBUTEROL 0.5-3(2.5)MG/3ML NEB HHN SCH ×2 (04:00→08:55)
[2019-04-22 08:47] VITALS: BP 144/94
[2019-04-22] MEDS: PREDNISONE 20MG TABLET PO SCH (09:36)
[2019-04-22] MEDS: THEOPHYLLINE ANHYDROUS 80 MG/15 ML 120ML PO SCH (09:37)
[2019-04-22] MEDS: HYDROCODONE/ACETAMINOPHEN 10/325MG TABLET PO PRN (09:44)
[2019-04-22 11:06] VITALS: BP 144/94
[2019-04-22 12:43] VITALS: BP 132/78
== END 2019-04-22 12:27 | disposition home or self-care (01) | DRG 816 ==
LOC: ER 12:03 → 3WST 13:25 → ENRESERV 15:33 → 6WST 04-19 11:00
PROVIDERS: ADMIT Internal Medicine; ATTEND Internal Medicine
PROC: 5A09357 Assistance with Respiratory Ventilation, Less than 24 Consecutive Hours, Continuous Positive Airway Pressure (ICD-10-PCS; principal; 2019-04-15)
PROC: 5A09357 Assistance with Respiratory Ventilation, Less than 24 Consecutive Hours, Continuous Positive Airway Pressure (ICD-10-PCS; 2019-04-16)
PROC: 5A09357 Assistance with Respiratory Ventilation, Less than 24 Consecutive Hours, Continuous Positive Airway Pressure (ICD-10-PCS; 2019-04-17)
PROC: 5A09357 Assistance with Respiratory Ventilation, Less than 24 Consecutive Hours, Continuous Positive Airway Pressure (ICD-10-PCS; 2019-04-18)
PROC: 5A09357 Assistance with Respiratory Ventilation, Less than 24 Consecutive Hours, Continuous Positive Airway Pressure (ICD-10-PCS; 2019-04-19)
PROC: 5A09357 Assistance with Respiratory Ventilation, Less than 24 Consecutive Hours, Continuous Positive Airway Pressure (ICD-10-PCS; 2019-04-20)
PROC: 5A09357 Assistance with Respiratory Ventilation, Less than 24 Consecutive Hours, Continuous Positive Airway Pressure (ICD-10-PCS; 2019-04-21)
PROC: 5A09357 Assistance with Respiratory Ventilation, Less than 24 Consecutive Hours, Continuous Positive Airway Pressure (ICD-10-PCS; 2019-04-22)
DX: T59.891A Toxic effect of other specified gases, fumes and vapors, accidental (unintentional), initial encounter (principal); J96.01 Acute respiratory failure with hypoxia; E43 Unspecified severe protein-calorie malnutrition; J68.0 Bronchitis and pneumonitis due to chemicals, gases, fumes and vapors; D72.1 Eosinophilia; I11.0 Hypertensive heart disease with heart failure; I50.9 Heart failure, unspecified; Z99.81 Dependence on supplemental oxygen; D64.9 Anemia, unspecified; R74.0 Nonspecific elevation of levels of transaminase and lactic acid dehydrogenase [LDH]; J43.9 Emphysema, unspecified; M16.12 Unilateral primary osteoarthritis, left hip; F14.10 Cocaine abuse, uncomplicated; F17.200 Nicotine dependence, unspecified, uncomplicated; M21.952 Unspecified acquired deformity of left thigh; F16.10 Hallucinogen abuse, uncomplicated; N43.3 Hydrocele, unspecified; R73.9 Hyperglycemia, unspecified; Z85.118 Personal history of other malignant neoplasm of bronchus and lung; Z85.819 Personal history of malignant neoplasm of unspecified site of lip, oral cavity, and pharynx; Z92.3 Personal history of irradiation; Z79.51 Long term (current) use of inhaled steroids; Z79.899 Other long term (current) drug therapy; Y92.89 Other specified places as the place of occurrence of the external cause
CPT/HCPCS: 36415; 36600; 71045; 76870; 80048; 80061; 80305; 81003; 82248; 82375; 82607; 82746; 82805; 82962; 83036; 83735; 83880; 84100; 84484; 93005; 93970; 93976; 94640; 94660; 96374; 97162; 97535; 99291; J1650; J1815; J1885; J2930; J3475; J3490; J7512; J7608; J7611; J7620

== ENCOUNTER 2019-05-07 03:03 | Inpatient (IN) | payer MEDICAID ==
[2019-05-07] VITALS (10 sets, daily range): BP systolic 2–148; BP diastolic 67–112
[~2019-05-07] VITALS: Ht 172.7 cm; Wt 63.5 kg
[2019-05-07] MEDS ORDERED: ALBUTEROL (0.083%) 2.5MG/3ML NEB HHN STA (03:28)
[2019-05-07] MEDS ORDERED: METHYLPREDNISOLONE SOD SUCC 125 MG/2 ML VIAL IV STA (03:28)
[2019-05-07] MEDS ORDERED: IPRATROPIUM BROMIDE (0.02%) 0.5MG/2.5ML NEB HHN STA (03:28)
[2019-05-07 03:46] LABS: BASOPHILS % 2.8 % (0.0-2.0); CHLORIDE 104 mEq/L (98-107); EOSINOPHILS % 5.9 % (0.0-5.0); HEMATOCRIT. 43.1 % (42.0-52.0); HEMOGLOBIN. 14.8 g/dL (14.0-18.0); LYMPHOCYTES % 25.9 % (20.0-50.0); MEAN CORPUSCULAR VOLUME 95.8 fL (80.0-94.0); MEAN PLATELET VOLUME 7.9 fl (7.4-10.4); MONOCYTES % 8.7 % (2.0-8.0); NEUTROPHILS % 56.7 % (40.0-76.0); PLATELET 212 x1000/uL (130-400)
[2019-05-07] MEDS ORDERED: HYDROCODONE/ACETAMINOPHEN 5/325MG TABLET PO PRN (05:30)
[2019-05-07] MEDS ORDERED: ALBUTEROL (0.5%) 2.5MG/0.5ML NEB HHN ONE (05:30)
[2019-05-07 05:55] LABS: BG BASE EXCESS -1.8 mmol/L (-2.0-2.0); BG BILEVEL POS AIRWAY PRESSURE 15/5; BG CARBOXYHEMOGLOBIN 0.6 % (0.5-1.5); BG DEOXYHEMOGLOBIN 1.6 % (0.0-5.0); BG FRACTION INSPIRED OXYGEN 40; BG HCO3 ACT 23.9 mmol/L (22.0-26.0); BG METHEMOGLOBIN 0.2 % (0.0-1.5); BG OXYGEN SATURATION 98.4 % (92.0-98.5); BG OXYHEMOGLOBIN 97.6 % (94.0-97.0); BG PCO2 44.5 mmHg (35.0-45.0); BG PH 7.348 (7.350-7.450); BG PO2 145.7 mmHg (75.0-100.0); BG SAMPLE SITE RIGHT BRACHIAL; BG TOTAL HEMOGLOBIN 12.5 g/dL (12.0-18.0); BG VENT MODE MASK - BIPAP; BG VENT RATE 16 set
[2019-05-07] MEDS ORDERED: ONDANSETRON HCL 4MG/2ML INJ IV PRN (09:45)
[2019-05-07] MEDS ORDERED: IPRATROPIUM/ALBUTEROL 0.5-3(2.5)MG/3ML NEB HHN PRN (09:45)
[2019-05-07] MEDS: LORAZEPAM 2MG/ML CPJ IV PRN (10:52)
[2019-05-07 12:12] LABS: PHOSPHORUS 3.4 mg/dL (2.5-4.9)
[2019-05-07] MEDS: MORPHINE SULFATE 2 MG/ML CPJ (NOT FOR IM USE) IV PRN ×2 (16:07→22:07)
[2019-05-07] MEDS: ENOXAPARIN 40MG/0.4ML SYR SUBCUT SCH (16:08)
[2019-05-07] MEDS: METHYLPREDNISOLONE SOD SUCC 40 MG/ML VIAL IV SCH (22:06)
[2019-05-08] VITALS (11 sets, daily range): BP systolic 121–171; BP diastolic 76–115
[2019-05-08] MEDS: LORAZEPAM 2MG/ML CPJ IV PRN (00:06)
[2019-05-08] MEDS: IPRATROPIUM/ALBUTEROL 0.5-3(2.5)MG/3ML NEB HHN SCH ×6 (00:29→20:19)
[2019-05-08] MEDS: METHYLPREDNISOLONE SOD SUCC 40 MG/ML VIAL IV SCH ×3 (06:11→22:00)
[2019-05-08 06:42] LABS: BASOPHILS % 0.3 % (0.0-2.0); EOSINOPHILS % 0.1 % (0.0-5.0); HEMATOCRIT. 32.1 % (42.0-52.0); HEMOGLOBIN. 11.4 g/dL (14.0-18.0); LYMPHOCYTES % 7.1 % (20.0-50.0); MEAN CORPUSCULAR HEMOGLOBIN 33.6 pg (28.0-32.0); MEAN CORPUSCULAR VOLUME 94.5 fL (80.0-94.0); MEAN PLATELET VOLUME 7.9 fl (7.4-10.4); MONOCYTES % 3.7 % (2.0-8.0); NEUTROPHILS % 88.8 % (40.0-76.0); PLATELET 185 x1000/uL (130-400)
[2019-05-08 06:56] LABS: CHLORIDE 106 mEq/L (98-107)
[2019-05-08] MEDS: ENOXAPARIN 40MG/0.4ML SYR SUBCUT SCH (08:31)
[2019-05-08] MEDS: MORPHINE SULFATE 2 MG/ML CPJ (NOT FOR IM USE) IV PRN ×2 (13:35→19:49)
[2019-05-08] MEDS: CLONIDINE 0.1MG TABLET PO PRN (19:56)
[2019-05-09] VITALS (14 sets, daily range): BP systolic 129–168; BP diastolic 33–115
[2019-05-09] MEDS: IPRATROPIUM/ALBUTEROL 0.5-3(2.5)MG/3ML NEB HHN SCH ×6 (00:41→20:45)
[2019-05-09] MEDS: MORPHINE SULFATE 2 MG/ML CPJ (NOT FOR IM USE) IV PRN ×4 (02:33→21:14)
[2019-05-09] MEDS: METHYLPREDNISOLONE SOD SUCC 40 MG/ML VIAL IV SCH ×3 (06:35→21:14)
[2019-05-09 06:42] LABS: HEMATOCRIT. 33.2 % (42.0-52.0); HEMOGLOBIN. 11.8 g/dL (14.0-18.0); MEAN CORPUSCULAR HEMOGLOBIN 33.4 pg (28.0-32.0); PLATELET 202 x1000/uL (130-400); RED BLOOD CELL COUNT 3.53 mill/uL (4.7-6.1); RED CELL DISTRIBUTION WIDTH 12.8 % (11.6-14.6)
[2019-05-09 06:55] LABS: CHLORIDE 103 mEq/L (98-107)
[2019-05-09] MEDS: ENOXAPARIN 40MG/0.4ML SYR SUBCUT SCH (08:42)
[2019-05-09 11:33] LABS: PLATELET ESTIMATE NORMAL
[2019-05-09] MEDS ORDERED: TERBUTALINE SULFATE 1MG/ML VIAL SUBCUT NR (14:30)
[2019-05-09] MEDS: LORAZEPAM 2MG/ML CPJ IV PRN (22:04)
[2019-05-10] VITALS (7 sets, daily range): BP systolic 131–155; BP diastolic 60–92
[2019-05-10] MEDS: IPRATROPIUM/ALBUTEROL 0.5-3(2.5)MG/3ML NEB HHN SCH ×5 (00:56→16:02)
[2019-05-10] MEDS: MORPHINE SULFATE 2 MG/ML CPJ (NOT FOR IM USE) IV PRN ×3 (04:45→21:03)
[2019-05-10] MEDS: METHYLPREDNISOLONE SOD SUCC 40 MG/ML VIAL IV SCH ×3 (05:16→22:29)
[2019-05-10] MEDS: ENOXAPARIN 40MG/0.4ML SYR SUBCUT SCH (08:36)
[2019-05-10] MEDS ORDERED: TERBUTALINE SULFATE 1MG/ML VIAL SUBCUT NR (13:15)
[2019-05-10] MEDS: BENZONATATE 100MG CAPSULE PO PRN ×2 (13:19→22:29)
[2019-05-10] MEDS: LORAZEPAM 2MG/ML CPJ IV PRN (22:29)
[2019-05-11] VITALS: BP 163/92
[2019-05-11] MEDS: IPRATROPIUM/ALBUTEROL 0.5-3(2.5)MG/3ML NEB HHN SCH ×6 (01:35→20:52)
[2019-05-11] MEDS: MORPHINE SULFATE 2 MG/ML CPJ (NOT FOR IM USE) IV PRN ×3 (02:29→20:31)
[2019-05-11 04:00] VITALS: BP 162/75
[2019-05-11] MEDS: METHYLPREDNISOLONE SOD SUCC 40 MG/ML VIAL IV SCH ×3 (05:39→21:01)
[2019-05-11 08:00] VITALS: BP 145/74
[2019-05-11] MEDS: BENZONATATE 100MG CAPSULE PO PRN ×2 (08:58→20:31)
[2019-05-11] MEDS: ENOXAPARIN 40MG/0.4ML SYR SUBCUT SCH (08:58)
[2019-05-11 12:00] VITALS: BP 142/72
[2019-05-11 16:00] VITALS: BP 154/87
[2019-05-11 20:00] VITALS: BP 149/95
[2019-05-11] MEDS: LORAZEPAM 2MG/ML CPJ IV PRN (21:01)
[2019-05-12] VITALS: BP 149/91
[2019-05-12] MEDS: IPRATROPIUM/ALBUTEROL 0.5-3(2.5)MG/3ML NEB HHN SCH ×6 (00:30→20:19)
[2019-05-12] MEDS: MORPHINE SULFATE 2 MG/ML CPJ (NOT FOR IM USE) IV PRN ×3 (01:41→11:56)
[2019-05-12 04:00] VITALS: BP 128/81
[2019-05-12] MEDS: METHYLPREDNISOLONE SOD SUCC 40 MG/ML VIAL IV SCH ×3 (06:09→22:21)
[2019-05-12 08:00] VITALS: BP 146/93
[2019-05-12] MEDS: ENOXAPARIN 40MG/0.4ML SYR SUBCUT SCH (09:16)
[2019-05-12] MEDS: BENZONATATE 100MG CAPSULE PO PRN ×2 (11:56→22:21)
[2019-05-12 12:00] VITALS: BP 154/95
[2019-05-12 16:00] VITALS: BP 151/90
[2019-05-12] MEDS ORDERED: TERBUTALINE SULFATE 1MG/ML VIAL SUBCUT SCH (16:00)
[2019-05-12] MEDS ORDERED: MORPHINE SULFATE 2 MG/ML CPJ (NOT FOR IM USE) IV PRN (21:30)
[2019-05-12] MEDS ORDERED: LORAZEPAM 2MG/ML CPJ IV PRN (21:30)
[2019-05-12] MEDS: THEOPHYLLINE ANHYDROUS 80 MG/15 ML 120ML PO SCH ×2 (22:21→22:22)
[2019-05-13] VITALS: BP 151/86
[2019-05-13] MEDS: IPRATROPIUM/ALBUTEROL 0.5-3(2.5)MG/3ML NEB HHN SCH ×6 (01:15→21:30)
[2019-05-13] MEDS ORDERED: LORAZEPAM 2MG/ML CPJ IV PRN (02:15)
[2019-05-13] MEDS: MORPHINE SULFATE 2 MG/ML CPJ (NOT FOR IM USE) IV PRN ×4 (02:35→21:48)
[2019-05-13 03:42] VITALS: BP 154/80
[2019-05-13] MEDS: THEOPHYLLINE ANHYDROUS 80 MG/15 ML 120ML PO SCH ×4 (04:57→21:47)
[2019-05-13] MEDS: METHYLPREDNISOLONE SOD SUCC 40 MG/ML VIAL IV SCH ×3 (04:57→21:46)
[2019-05-13 06:35] LABS: HEMATOCRIT. 33.4 % (42.0-52.0); HEMOGLOBIN. 11.8 g/dL (14.0-18.0); MEAN CORPUSCULAR HEMOGLOBIN 33.4 pg (28.0-32.0); MEAN PLATELET VOLUME 8.5 fl (7.4-10.4); PLATELET 243 x1000/uL (130-400); RED BLOOD CELL COUNT 3.52 mill/uL (4.7-6.1)
[2019-05-13 07:42] LABS: CHLORIDE 98 mEq/L (98-107)
[2019-05-13 08:00] VITALS: BP 161/97
[2019-05-13] MEDS: CLONIDINE 0.1MG TABLET PO PRN (09:20)
[2019-05-13] MEDS: ENOXAPARIN 40MG/0.4ML SYR SUBCUT SCH (09:20)
[2019-05-13 09:51] LABS: PLATELET ESTIMATE NORMAL
[2019-05-13 12:00] VITALS: BP 128/76
[2019-05-13 16:00] VITALS: BP 141/88
[2019-05-13 20:00] VITALS: BP 150/89
[2019-05-13] MEDS: ZOLPIDEM TARTRATE 5MG TABLET PO PRN (21:46)
[2019-05-13] MEDS: BENZONATATE 100MG CAPSULE PO PRN (21:46)
[2019-05-14] MEDS: IPRATROPIUM/ALBUTEROL 0.5-3(2.5)MG/3ML NEB HHN SCH ×5 (02:15→21:43)
[2019-05-14] MEDS: MORPHINE SULFATE 2 MG/ML CPJ (NOT FOR IM USE) IV PRN ×3 (02:52→20:32)
[2019-05-14 04:07] VITALS: BP 139/70
[2019-05-14] MEDS: METHYLPREDNISOLONE SOD SUCC 40 MG/ML VIAL IV SCH ×3 (05:55→17:48)
[2019-05-14] MEDS: BENZONATATE 100MG CAPSULE PO PRN (05:55)
[2019-05-14] MEDS: THEOPHYLLINE ANHYDROUS 80 MG/15 ML 120ML PO SCH ×3 (05:55→17:47)
[2019-05-14 08:00] VITALS: BP 141/77
[2019-05-14 08:19] LABS: HEMATOCRIT. 35.2 % (42.0-52.0); HEMOGLOBIN. 12.3 g/dL (14.0-18.0); MEAN CORPUSCULAR HEMOGLOBIN 33.2 pg (28.0-32.0); MEAN CORPUSCULAR VOLUME 95.5 fL (80.0-94.0); MEAN PLATELET VOLUME 8.3 fl (7.4-10.4); PLATELET 258 x1000/uL (130-400); RED BLOOD CELL COUNT 3.69 mill/uL (4.7-6.1); RED CELL DISTRIBUTION WIDTH 12.8 % (11.6-14.6)
[2019-05-14 08:32] LABS: CHLORIDE 96 mEq/L (98-107)
[2019-05-14] MEDS: ENOXAPARIN 40MG/0.4ML SYR SUBCUT SCH (08:34)
[2019-05-14 12:00] VITALS: BP 127/75
[2019-05-14] MEDS ORDERED: TERBUTALINE SULFATE 1MG/ML VIAL SUBCUT NR (12:00)
[2019-05-14 16:00] VITALS: BP 133/92
[2019-05-14 18:30] LABS: *AMPHETAMINES SCREEN URINE NEGATIVE (NEGATIVE); *BARBITURATES SCREEN URINE NEGATIVE (NEGATIVE)
[2019-05-14 18:31] LABS: *BENZODIAZEPINES SCREEN URINE NEGATIVE (NEGATIVE); *COCAINE SCREEN URINE NEGATIVE (NEGATIVE); CANNABINOID URINE SCREEN NEGATIVE (NEGATIVE); METHADONE URINE SCREEN NEGATIVE (NEGATIVE); OPIATES URINE SCREEN PRESUMTIVE POSITIVE (NEGATIVE); PHENCYCLIDINE URINE SCREEN NEGATIVE (NEGATIVE)
[2019-05-14 20:00] VITALS: BP 118/61
[2019-05-14 21:49] LABS: NUCLEATED RED BLOOD CELLS 1 /100 WBC; PLATELET ESTIMATE NORMAL
[2019-05-15] VITALS: BP 160/88
[2019-05-15] MEDS: METHYLPREDNISOLONE SOD SUCC 40 MG/ML VIAL IV SCH ×3 (00:51→11:02)
[2019-05-15] MEDS: MORPHINE SULFATE 2 MG/ML CPJ (NOT FOR IM USE) IV PRN ×3 (00:52→12:50)
[2019-05-15] MEDS: THEOPHYLLINE ANHYDROUS 80 MG/15 ML 120ML PO SCH ×3 (00:52→11:02)
[2019-05-15] MEDS: IPRATROPIUM/ALBUTEROL 0.5-3(2.5)MG/3ML NEB HHN SCH ×5 (01:00→15:43)
[2019-05-15] MEDS: ZOLPIDEM TARTRATE 5MG TABLET PO PRN (02:45)
[2019-05-15 04:00] VITALS: BP 161/88
[2019-05-15 08:00] VITALS: BP 150/100
[2019-05-15] MEDS: ENOXAPARIN 40MG/0.4ML SYR SUBCUT SCH (08:02)
[2019-05-15 12:00] VITALS: BP 142/80
[2019-05-15 12:50] VITALS: BP 142/80
[2019-05-15] MEDS ORDERED: P20 MT (13:51)
[2019-05-15] MEDS ORDERED: TIOT18CA3 INH (13:51)
[2019-05-15] MEDS ORDERED: THEO100T15 MT (13:51)
[2019-05-15] MEDS ORDERED: IPRA3AMP9 NEB (13:51)
[2019-05-15] MEDS ORDERED: BENZ-16 MT (13:51)
[2019-05-15] MEDS ORDERED: FLUT1DIS3 INH (13:51)
[2019-05-15] MEDS ORDERED: PREDNISONE 20MG TABLET PO SCH (17:40)
== END 2019-05-15 17:05 | disposition left against medical advice (07) | DRG 816 ==
LOC: ER 03:03 → 5EST 05:28 → EDBEDREQSVC 05:37 → EDBEDREQTM 05:43 → EDBEDREQ 05:43 → ENRESERV 07:27 → 8WST 05-10 17:20
PROVIDERS: ADMIT Internal Medicine; ATTEND Internal Medicine
PROC: 5A09357 Assistance with Respiratory Ventilation, Less than 24 Consecutive Hours, Continuous Positive Airway Pressure (ICD-10-PCS; 2019-05-07)
PROC: 5A09357 Assistance with Respiratory Ventilation, Less than 24 Consecutive Hours, Continuous Positive Airway Pressure (ICD-10-PCS; 2019-05-08)
PROC: 5A09357 Assistance with Respiratory Ventilation, Less than 24 Consecutive Hours, Continuous Positive Airway Pressure (ICD-10-PCS; 2019-05-09)
PROC: 5A09357 Assistance with Respiratory Ventilation, Less than 24 Consecutive Hours, Continuous Positive Airway Pressure (ICD-10-PCS; 2019-05-10)
PROC: 5A09357 Assistance with Respiratory Ventilation, Less than 24 Consecutive Hours, Continuous Positive Airway Pressure (ICD-10-PCS; 2019-05-11)
PROC: 5A09357 Assistance with Respiratory Ventilation, Less than 24 Consecutive Hours, Continuous Positive Airway Pressure (ICD-10-PCS; 2019-05-12)
PROC: 5A09457 Assistance with Respiratory Ventilation, 24-96 Consecutive Hours, Continuous Positive Airway Pressure (ICD-10-PCS; principal; 2019-05-13)
PROC: 5A09357 Assistance with Respiratory Ventilation, Less than 24 Consecutive Hours, Continuous Positive Airway Pressure (ICD-10-PCS; 2019-05-15)
DX: T40.5X1A Poisoning by cocaine, accidental (unintentional), initial encounter (principal); J96.20 Acute and chronic respiratory failure, unspecified whether with hypoxia or hypercapnia; D72.1 Eosinophilia; J43.9 Emphysema, unspecified; I50.9 Heart failure, unspecified; F41.9 Anxiety disorder, unspecified; F16.10 Hallucinogen abuse, uncomplicated; I11.0 Hypertensive heart disease with heart failure; Z53.29 Procedure and treatment not carried out because of patient's decision for other reasons; F14.10 Cocaine abuse, uncomplicated; R59.0 Localized enlarged lymph nodes; J68.0 Bronchitis and pneumonitis due to chemicals, gases, fumes and vapors; N43.3 Hydrocele, unspecified; Z87.891 Personal history of nicotine dependence; Z92.3 Personal history of irradiation; Z85.819 Personal history of malignant neoplasm of unspecified site of lip, oral cavity, and pharynx; Z99.81 Dependence on supplemental oxygen; Z71.51 Drug abuse counseling and surveillance of drug abuser; Y92.89 Other specified places as the place of occurrence of the external cause
CPT/HCPCS: 36415; 36600; 71045; 80048; 80305; 82375; 82805; 83735; 83880; 84100; 84484; 93005; 93970; 94640; 94644; 94660; 96374; 99285; C1893; J1650; J2060; J2270; J2920; J2930; J3105; J7611; J7620

== ENCOUNTER 2019-05-19 20:58 | Inpatient (IN) | payer MEDICAID ==
[~2019-05-19] VITALS: Ht 172.7 cm; Wt 59.4 kg
[~2019-05-19 20:58] MED LIST changes: +IPRA3AMP9 NEB; +THEO100T15 MT
[2019-05-19] MEDS ORDERED: IPRATROPIUM BROMIDE (0.02%) 0.5MG/2.5ML NEB HHN STA (21:02)
[2019-05-19] MEDS ORDERED: ALBUTEROL (0.083%) 2.5MG/3ML NEB HHN STA (21:02)
[2019-05-19] MEDS: FUROSEMIDE 20MG/2ML VIAL IVP ONE ×2 (21:11→21:26)
[2019-05-19] MEDS: MAGNESIUM 2 G PREMIX 50 ML IV STA ×2 (21:11→21:27)
[2019-05-19] MEDS: METHYLPREDNISOLONE SOD SUCC 125 MG/2 ML VIAL IV STA ×2 (21:11→21:26)
[2019-05-19 21:38] LABS: HEMATOCRIT. 42.7 % (42.0-52.0); HEMOGLOBIN. 14.9 g/dL (14.0-18.0); MEAN CORPUSCULAR HEMOGLOBIN 33.5 pg (28.0-32.0); MEAN CORPUSCULAR VOLUME 95.7 fL (80.0-94.0); MEAN PLATELET VOLUME 8.5 fl (7.4-10.4); PLATELET 211 x1000/uL (130-400); RED BLOOD CELL COUNT 4.46 mill/uL (4.7-6.1)
[2019-05-19 21:42] LABS: CHLORIDE 99 mEq/L (98-107)
[2019-05-19 21:43] LABS: PROTHROMBIN TIME 10.2 sec (9.6-11.0)
[2019-05-19 21:46] LABS: ETHANOL BLOOD < 10 mg/dL
[2019-05-19 21:59] LABS: PLATELET ESTIMATE NORMAL
[2019-05-19] MEDS ORDERED: SODIUM CHLORIDE 0.9% 1,000 ML IV ONE (22:10)
[2019-05-19 22:31] LABS: CLARITY URINE CLEAR (CLEAR); COLOR URINE YELLOW (YELLOW); KETONES URINE NEGATIVE (NEGATIVE); LEUKOCYTE ESTERASE URINE NEGATIVE (NEGATIVE); NITRITE URINE NEGATIVE (NEGATIVE); OCCULT BLOOD URINE NEGATIVE (NEGATIVE); PH URINE 6.5 (4.5-8.0); PROTEIN URINE NEGATIVE (NEGATIVE); SPECIFIC GRAVITY URINE 1.017 (1.005-1.030)
[2019-05-19] MEDS ORDERED: KETOROLAC 30MG/ML VIAL IV ONE (22:45)
[2019-05-19 23:01] LABS: *AMPHETAMINES SCREEN URINE NEGATIVE (NEGATIVE); *BARBITURATES SCREEN URINE NEGATIVE (NEGATIVE); *BENZODIAZEPINES SCREEN URINE NEGATIVE (NEGATIVE); *COCAINE SCREEN URINE PRESUMTIVE POSITIVE (NEGATIVE); METHADONE URINE SCREEN NEGATIVE (NEGATIVE); OPIATES URINE SCREEN PRESUMTIVE POSITIVE (NEGATIVE); PHENCYCLIDINE URINE SCREEN PRESUMTIVE POSITIVE (NEGATIVE)
[2019-05-19 23:02] LABS: CANNABINOID URINE SCREEN NEGATIVE (NEGATIVE)
[2019-05-19 23:22] VITALS: BP 118/41
[2019-05-20] VITALS (13 sets, daily range): BP systolic 103–149; BP diastolic 66–95
[2019-05-20] MEDS: ENOXAPARIN 40MG/0.4ML SYR SUBCUT SCH ×2 (02:28→20:49)
[2019-05-20] MEDS ORDERED: METHYLPREDNISOLONE SOD SUCC 40 MG/ML VIAL IV SCH (06:00)
[2019-05-20 06:17] LABS: BASOPHILS % 0.3 % (0.0-2.0); EOSINOPHILS % 0.1 % (0.0-5.0); HEMATOCRIT. 38.7 % (42.0-52.0); HEMOGLOBIN. 13.1 g/dL (14.0-18.0); LYMPHOCYTES % 8.2 % (20.0-50.0); MEAN CORPUSCULAR HEMOGLOBIN 33.2 pg (28.0-32.0); MEAN CORPUSCULAR VOLUME 97.9 fL (80.0-94.0); MEAN PLATELET VOLUME 8.2 fl (7.4-10.4); MONOCYTES % 3.7 % (2.0-8.0); NEUTROPHILS % 87.7 % (40.0-76.0); PLATELET 184 x1000/uL (130-400); RED BLOOD CELL COUNT 3.95 mill/uL (4.7-6.1)
[2019-05-20 06:20] LABS: CHLORIDE 102 mEq/L (98-107)
[2019-05-20 06:32] LABS: CREATINE KINASE 108 IU/L (39-308)
[2019-05-20] MEDS: OMEPRAZOLE 20MG CAPSULE EXTENDED RELEASE PO SCH (08:40)
[2019-05-20] MEDS ORDERED: ONDANSETRON HCL 4MG/2ML INJ IV PRN (10:30)
[2019-05-20] MEDS ORDERED: LORAZEPAM 0.5MG TABLET PO PRN (10:30)
[2019-05-20] MEDS ORDERED: ACETAMINOPHEN 325MG TABLET PO PRN (10:30)
[2019-05-20] MEDS ORDERED: DOCUSATE SODIUM 100MG CAPSULE PO PRN (10:30)
[2019-05-20] MEDS ORDERED: CLONIDINE 0.1MG TABLET PO PRN (10:30)
[2019-05-20] MEDS ORDERED: IPRATROPIUM/ALBUTEROL 0.5-3(2.5)MG/3ML NEB HHN PRN ×2 (10:30→11:30)
[2019-05-20] MEDS: HYDROCODONE/ACETAMINOPHEN 5/325MG TABLET PO PRN ×3 (12:01→23:37)
[2019-05-20] MEDS: IPRATROPIUM/ALBUTEROL 0.5-3(2.5)MG/3ML NEB HHN SCH ×3 (13:35→20:23)
[2019-05-20] MEDS: BUDESONIDE 0.5MG/2ML NEB HHN SCH ×2 (13:35→20:22)
[2019-05-20 13:45] LABS: CREATINE KINASE 124 IU/L (39-308)
[2019-05-20] MEDS: THEOPHYLLINE ANHYDROUS 80 MG/15 ML 120ML PO SCH ×3 (14:11→23:33)
[2019-05-20] MEDS: PREDNISONE 20MG TABLET PO SCH ×2 (14:11→21:04)
[2019-05-21] VITALS (11 sets, daily range): BP systolic 118–148; BP diastolic 61–91
[2019-05-21] MEDS: IPRATROPIUM/ALBUTEROL 0.5-3(2.5)MG/3ML NEB HHN SCH ×6 (00:03→21:31)
[2019-05-21] MEDS: THEOPHYLLINE ANHYDROUS 80 MG/15 ML 120ML PO SCH ×4 (05:50→23:06)
[2019-05-21] MEDS: PREDNISONE 20MG TABLET PO SCH ×3 (05:51→20:54)
[2019-05-21] MEDS: HYDROCODONE/ACETAMINOPHEN 5/325MG TABLET PO PRN (06:05)
[2019-05-21 06:46] LABS: HEMATOCRIT. 34.4 % (42.0-52.0); HEMOGLOBIN. 11.8 g/dL (14.0-18.0); MEAN CORPUSCULAR HEMOGLOBIN 32.6 pg (28.0-32.0); MEAN CORPUSCULAR VOLUME 95.2 fL (80.0-94.0); PLATELET 163 x1000/uL (130-400); RED BLOOD CELL COUNT 3.62 mill/uL (4.7-6.1); RED CELL DISTRIBUTION WIDTH 12.9 % (11.6-14.6)
[2019-05-21 07:14] LABS: CHLORIDE 98 mEq/L (98-107)
[2019-05-21] MEDS: OMEPRAZOLE 20MG CAPSULE EXTENDED RELEASE PO SCH (08:53)
[2019-05-21] MEDS: LISINOPRIL 5MG TABLET PO SCH (08:53)
[2019-05-21] MEDS: BUDESONIDE 0.5MG/2ML NEB HHN SCH ×2 (09:13→21:31)
[2019-05-21 10:55] LABS: PLATELET ESTIMATE NORMAL
[2019-05-21] MEDS: GUAIFENESIN 200MG/10ML SUGAR FREE UDC PO PRN (13:33)
[2019-05-21] MEDS: ENOXAPARIN 40MG/0.4ML SYR SUBCUT SCH (20:54)
[2019-05-21] MEDS: ZOLPIDEM TARTRATE 5MG TABLET PO PRN (20:54)
[2019-05-21] MEDS: BENZONATATE 100MG CAPSULE PO PRN (23:10)
[2019-05-22] VITALS (12 sets, daily range): BP systolic 115–139; BP diastolic 70–81
[2019-05-22] MEDS: HYDROCODONE/ACETAMINOPHEN 5/325MG TABLET PO PRN ×3 (01:35→21:18)
[2019-05-22] MEDS: IPRATROPIUM/ALBUTEROL 0.5-3(2.5)MG/3ML NEB HHN SCH ×6 (01:47→22:10)
[2019-05-22] MEDS: PREDNISONE 20MG TABLET PO SCH ×3 (05:50→21:17)
[2019-05-22] MEDS: THEOPHYLLINE ANHYDROUS 80 MG/15 ML 120ML PO SCH ×4 (05:51→23:39)
[2019-05-22 07:20] LABS: HEMATOCRIT. 33.3 % (42.0-52.0); HEMOGLOBIN. 11.6 g/dL (14.0-18.0); MEAN CORPUSCULAR HEMOGLOBIN 33.1 pg (28.0-32.0); MEAN CORPUSCULAR VOLUME 95.2 fL (80.0-94.0); MEAN PLATELET VOLUME 8.5 fl (7.4-10.4); PLATELET 159 x1000/uL (130-400); RED CELL DISTRIBUTION WIDTH 12.6 % (11.6-14.6)
[2019-05-22 07:42] LABS: CHLORIDE 100 mEq/L (98-107)
[2019-05-22] MEDS: BUDESONIDE 0.5MG/2ML NEB HHN SCH ×2 (08:24→22:10)
[2019-05-22] MEDS: LISINOPRIL 5MG TABLET PO SCH (09:10)
[2019-05-22] MEDS: OMEPRAZOLE 20MG CAPSULE EXTENDED RELEASE PO SCH (09:10)
[2019-05-22] MEDS: BENZONATATE 100MG CAPSULE PO PRN (09:19)
[2019-05-22] MEDS: GUAIFENESIN 200MG/10ML SUGAR FREE UDC PO PRN (09:19)
[2019-05-22 13:31] LABS: PLATELET ESTIMATE NORMAL
[2019-05-22] MEDS: ENOXAPARIN 40MG/0.4ML SYR SUBCUT SCH (21:16)
[2019-05-22] MEDS: ZOLPIDEM TARTRATE 5MG TABLET PO PRN (23:38)
[2019-05-23] VITALS (12 sets, daily range): BP systolic 115–142; BP diastolic 66–95
[2019-05-23] MEDS: BUDESONIDE 0.5MG/2ML NEB HHN SCH ×2 (01:13→13:40)
[2019-05-23] MEDS: IPRATROPIUM/ALBUTEROL 0.5-3(2.5)MG/3ML NEB HHN SCH ×6 (01:13→20:56)
[2019-05-23] MEDS: THEOPHYLLINE ANHYDROUS 80 MG/15 ML 120ML PO SCH ×3 (06:13→17:42)
[2019-05-23] MEDS: PREDNISONE 20MG TABLET PO SCH ×3 (06:13→21:08)
[2019-05-23] MEDS: HYDROCODONE/ACETAMINOPHEN 5/325MG TABLET PO PRN (06:23)
[2019-05-23 06:47] LABS: HEMOGLOBIN. 12.7 g/dL (14.0-18.0); MEAN CORPUSCULAR HEMOGLOBIN 33.8 pg (28.0-32.0); MEAN CORPUSCULAR VOLUME 96.1 fL (80.0-94.0); PLATELET 162 x1000/uL (130-400); RED BLOOD CELL COUNT 3.75 mill/uL (4.7-6.1); RED CELL DISTRIBUTION WIDTH 12.8 % (11.6-14.6)
[2019-05-23 07:04] LABS: CHLORIDE 100 mEq/L (98-107)
[2019-05-23] MEDS: OMEPRAZOLE 20MG CAPSULE EXTENDED RELEASE PO SCH (08:32)
[2019-05-23] MEDS: LISINOPRIL 5MG TABLET PO SCH (08:33)
[2019-05-23 13:58] LABS: PLATELET ESTIMATE NORMAL
[2019-05-23] MEDS: ZOLPIDEM TARTRATE 5MG TABLET PO PRN (21:08)
[2019-05-23] MEDS: ENOXAPARIN 40MG/0.4ML SYR SUBCUT SCH (21:09)
[2019-05-24] VITALS (10 sets, daily range): BP systolic 122–152; BP diastolic 74–99
[2019-05-24] MEDS: THEOPHYLLINE ANHYDROUS 80 MG/15 ML 120ML PO SCH ×3 (00:33→12:30)
[2019-05-24] MEDS: HYDROCODONE/ACETAMINOPHEN 5/325MG TABLET PO PRN ×2 (00:36→16:17)
[2019-05-24] MEDS: IPRATROPIUM/ALBUTEROL 0.5-3(2.5)MG/3ML NEB HHN SCH ×4 (01:31→13:42)
[2019-05-24] MEDS: BENZONATATE 100MG CAPSULE PO PRN ×3 (04:58→16:16)
[2019-05-24] MEDS: PREDNISONE 20MG TABLET PO SCH ×2 (06:43→15:26)
[2019-05-24] MEDS: OMEPRAZOLE 20MG CAPSULE EXTENDED RELEASE PO SCH (08:27)
[2019-05-24] MEDS: LISINOPRIL 5MG TABLET PO SCH (08:28)
[2019-05-24] MEDS: GUAIFENESIN 200MG/10ML SUGAR FREE UDC PO PRN ×2 (08:28→16:16)
[2019-05-24] MEDS ORDERED: IPRA3AMP9 NEB (12:56)
[2019-05-24] MEDS ORDERED: FLUT1DIS3 INH (12:56)
[2019-05-24] MEDS ORDERED: PRED5TAB MT (12:56)
[2019-05-24] MEDS ORDERED: P20 MT (12:56)
[2019-05-24] MEDS ORDERED: THEO100T15 MT (12:56)
[2019-05-24] MEDS ORDERED: BENZ-16 MT (12:56)
== END 2019-05-24 17:05 | disposition home or self-care (01) | DRG 816 ==
LOC: ER 20:58 → 3WST 22:12 → EDBEDREQ 22:19 → EDBEDREQTM 22:19 → ENRESERV 22:32
PROVIDERS: ADMIT Internal Medicine; ATTEND Internal Medicine
PROC: 5A09357 Assistance with Respiratory Ventilation, Less than 24 Consecutive Hours, Continuous Positive Airway Pressure (ICD-10-PCS; principal; 2019-05-19)
PROC: 5A09357 Assistance with Respiratory Ventilation, Less than 24 Consecutive Hours, Continuous Positive Airway Pressure (ICD-10-PCS; 2019-05-21)
PROC: 5A09357 Assistance with Respiratory Ventilation, Less than 24 Consecutive Hours, Continuous Positive Airway Pressure (ICD-10-PCS; 2019-05-22)
PROC: 5A09357 Assistance with Respiratory Ventilation, Less than 24 Consecutive Hours, Continuous Positive Airway Pressure (ICD-10-PCS; 2019-05-23)
DX: T40.5X1A Poisoning by cocaine, accidental (unintentional), initial encounter (principal); J96.20 Acute and chronic respiratory failure, unspecified whether with hypoxia or hypercapnia; R65.11 Systemic inflammatory response syndrome (SIRS) of non-infectious origin with acute organ dysfunction; E87.2 Acidosis; I50.9 Heart failure, unspecified; I11.0 Hypertensive heart disease with heart failure; J68.0 Bronchitis and pneumonitis due to chemicals, gases, fumes and vapors; E86.0 Dehydration; D64.9 Anemia, unspecified; F14.10 Cocaine abuse, uncomplicated; M16.12 Unilateral primary osteoarthritis, left hip; Z79.51 Long term (current) use of inhaled steroids; Z99.81 Dependence on supplemental oxygen; Z85.819 Personal history of malignant neoplasm of unspecified site of lip, oral cavity, and pharynx; Y92.89 Other specified places as the place of occurrence of the external cause; Z92.3 Personal history of irradiation; F14.188 Cocaine abuse with other cocaine-induced disorder
CPT/HCPCS: 36415; 71045; 80048; 80305; 80320; 81003; 82550; 82553; 83605; 83880; 84145; 84484; 93005; 93970; 94640; 94644; 94660; 96361; 96365; 96375; 99291; J1650; J1885; J1940; J2920; J2930; J3475; J7030; J7512; J7611; J7620; J7626; G0480

== ENCOUNTER 2019-05-26 03:17 | Inpatient (IN) | payer MEDICAID ==
[2019-05-26] VITALS (8 sets, daily range): BP systolic 148–169; BP diastolic 86–99
[~2019-05-26] VITALS: Ht 177.8 cm; Wt 64.9 kg
[2019-05-26] MEDS ORDERED: IPRATROPIUM BROMIDE (0.02%) 0.5MG/2.5ML NEB HHN STA (03:35)
[2019-05-26] MEDS ORDERED: METHYLPREDNISOLONE SOD SUCC 125 MG/2 ML VIAL IV STA (03:35)
[2019-05-26] MEDS ORDERED: ALBUTEROL (0.083%) 2.5MG/3ML NEB HHN STA (03:35)
[2019-05-26] MEDS ORDERED: MAGNESIUM 2 G PREMIX 50 ML IV STA (03:35)
[2019-05-26] MEDS ORDERED: MORPHINE SULFATE 4 MG/ML CPJ (NOT FOR IM USE) IV ONE (05:45)
[2019-05-26] MEDS ORDERED: ONDANSETRON HCL 4MG/2ML INJ IV PRN (10:00)
[2019-05-26] MEDS ORDERED: IPRATROPIUM/ALBUTEROL 0.5-3(2.5)MG/3ML NEB HHN PRN (10:00)
[2019-05-26] MEDS ORDERED: ACETAMINOPHEN 325MG TABLET PO PRN (10:00)
[2019-05-26] MEDS: METHYLPREDNISOLONE SOD SUCC 40 MG/ML VIAL IV SCH ×2 (10:46→20:33)
[2019-05-26] MEDS: IPRATROPIUM/ALBUTEROL 0.5-3(2.5)MG/3ML NEB HHN SCH ×3 (11:54→21:09)
[2019-05-26] MEDS: HYDROCODONE/ACETAMINOPHEN 10/325MG TABLET PO PRN ×2 (14:10→20:32)
[2019-05-26] MEDS ORDERED: LIDOCAINE HCL/PF 1% 2ML VIAL ONE (17:00)
[2019-05-26 18:11] LABS: BG BASE EXCESS 5.9 mmol/L (-2.0-2.0); BG DEOXYHEMOGLOBIN 7.8 % (0.0-5.0); BG FRACTION INSPIRED OXYGEN 28; BG HCO3 ACT 31.1 mmol/L (22.0-26.0); BG METHEMOGLOBIN 0.1 % (0.0-1.5); BG OXYGEN SATURATION 92.2 % (92.0-98.5); BG OXYHEMOGLOBIN 92.1 % (94.0-97.0); BG PCO2 47.6 mmHg (35.0-45.0); BG PH 7.433 (7.350-7.450); BG PO2 63.1 mmHg (75.0-100.0); BG SAMPLE SITE RIGHT RADIAL; BG TOTAL HEMOGLOBIN 11.9 g/dL (12.0-18.0); BG VENT MODE NASAL CANNULA
[2019-05-26] MEDS: AMLODIPINE 5MG TABLET PO SCH (18:33)
[2019-05-26 20:00] LABS: HEMATOCRIT. 34.4 % (42.0-52.0); HEMOGLOBIN. 11.8 g/dL (14.0-18.0); MEAN CORPUSCULAR HEMOGLOBIN 33.1 pg (28.0-32.0); MEAN CORPUSCULAR VOLUME 96.5 fL (80.0-94.0); MEAN PLATELET VOLUME 7.6 fl (7.4-10.4); PLATELET 176 x1000/uL (130-400); RED BLOOD CELL COUNT 3.56 mill/uL (4.7-6.1); RED CELL DISTRIBUTION WIDTH 13.7 % (11.6-14.6)
[2019-05-26 20:03] LABS: CHLORIDE 101 mEq/L (98-107)
[2019-05-26 20:21] LABS: PLATELET ESTIMATE NORMAL
[2019-05-26] MEDS: GUAIFENESIN 600MG ER TABLET PO SCH (20:32)
[2019-05-26] MEDS: ENOXAPARIN 40MG/0.4ML SYR SUBCUT SCH (20:33)
[2019-05-26] MEDS: BUDESONIDE 0.5MG/2ML NEB HHN SCH (21:09)
[2019-05-26] MEDS: ZOLPIDEM TARTRATE 5MG TABLET PO PRN (22:59)
[2019-05-27] VITALS (13 sets, daily range): BP systolic 129–169; BP diastolic 72–99
[2019-05-27] MEDS: IPRATROPIUM/ALBUTEROL 0.5-3(2.5)MG/3ML NEB HHN SCH ×6 (00:26→19:52)
[2019-05-27] MEDS: METHYLPREDNISOLONE SOD SUCC 40 MG/ML VIAL IV SCH ×3 (03:20→21:56)
[2019-05-27] MEDS: HYDROCODONE/ACETAMINOPHEN 10/325MG TABLET PO PRN ×2 (03:54→12:28)
[2019-05-27 05:55] LABS: CHLORIDE 99 mEq/L (98-107)
[2019-05-27 06:12] LABS: HEMATOCRIT. 31.1 % (42.0-52.0); HEMOGLOBIN. 10.9 g/dL (14.0-18.0); MEAN CORPUSCULAR HEMOGLOBIN 33.6 pg (28.0-32.0); MEAN CORPUSCULAR VOLUME 96.1 fL (80.0-94.0); PLATELET 156 x1000/uL (130-400); RED BLOOD CELL COUNT 3.23 mill/uL (4.7-6.1); RED CELL DISTRIBUTION WIDTH 13.1 % (11.6-14.6)
[2019-05-27] MEDS: GUAIFENESIN 600MG ER TABLET PO SCH ×2 (08:21→21:57)
[2019-05-27] MEDS: AMLODIPINE 5MG TABLET PO SCH (08:21)
[2019-05-27] MEDS: BUDESONIDE 0.5MG/2ML NEB HHN SCH ×3 (08:26→19:52)
[2019-05-27] MEDS: GUAIFENESIN-DM 200MG-20MG/10ML UDC PO PRN (10:33)
[2019-05-27 10:44] LABS: PLATELET ESTIMATE NORMAL
[2019-05-27] MEDS ORDERED: TERBUTALINE SULFATE 1MG/ML VIAL SUBCUT SCH (14:30)
[2019-05-27] MEDS: BENZONATATE 100MG CAPSULE PO PRN (14:35)
[2019-05-27 18:19] LABS: *AMPHETAMINES SCREEN URINE NEGATIVE (NEGATIVE); *BARBITURATES SCREEN URINE NEGATIVE (NEGATIVE); *BENZODIAZEPINES SCREEN URINE NEGATIVE (NEGATIVE); *COCAINE SCREEN URINE NEGATIVE (NEGATIVE); METHADONE URINE SCREEN NEGATIVE (NEGATIVE); OPIATES URINE SCREEN PRESUMTIVE POSITIVE (NEGATIVE)
[2019-05-27 18:20] LABS: CANNABINOID URINE SCREEN NEGATIVE (NEGATIVE); PHENCYCLIDINE URINE SCREEN NEGATIVE (NEGATIVE)
[2019-05-27] MEDS: ZOLPIDEM TARTRATE 5MG TABLET PO PRN (21:56)
[2019-05-27] MEDS: ENOXAPARIN 40MG/0.4ML SYR SUBCUT SCH (21:57)
[2019-05-28] VITALS (12 sets, daily range): BP systolic 112–167; BP diastolic 51–100
[2019-05-28] MEDS: IPRATROPIUM/ALBUTEROL 0.5-3(2.5)MG/3ML NEB HHN SCH ×5 (00:10→21:19)
[2019-05-28] MEDS: METHYLPREDNISOLONE SOD SUCC 40 MG/ML VIAL IV SCH ×3 (03:40→18:53)
[2019-05-28] MEDS: GUAIFENESIN-DM 200MG-20MG/10ML UDC PO PRN (04:08)
[2019-05-28] MEDS: HYDROCODONE/ACETAMINOPHEN 10/325MG TABLET PO PRN ×3 (04:33→18:55)
[2019-05-28] MEDS: BENZONATATE 100MG CAPSULE PO PRN ×2 (07:57→17:59)
[2019-05-28] MEDS: GUAIFENESIN 600MG ER TABLET PO SCH ×2 (08:00→20:48)
[2019-05-28] MEDS: AMLODIPINE 5MG TABLET PO SCH (08:01)
[2019-05-28] MEDS: BUDESONIDE 0.5MG/2ML NEB HHN SCH ×2 (12:33→21:19)
[2019-05-28] MEDS: ENOXAPARIN 40MG/0.4ML SYR SUBCUT SCH (20:48)
[2019-05-28] MEDS: ZOLPIDEM TARTRATE 5MG TABLET PO PRN (20:48)
[2019-05-29] VITALS (12 sets, daily range): BP systolic 103–158; BP diastolic 58–99
[2019-05-29] MEDS: IPRATROPIUM/ALBUTEROL 0.5-3(2.5)MG/3ML NEB HHN SCH ×7 (01:22→21:23)
[2019-05-29] MEDS: METHYLPREDNISOLONE SOD SUCC 40 MG/ML VIAL IV SCH ×3 (03:00→18:36)
[2019-05-29] MEDS: GUAIFENESIN 600MG ER TABLET PO SCH ×2 (08:08→20:59)
[2019-05-29] MEDS: HYDROCODONE/ACETAMINOPHEN 10/325MG TABLET PO PRN ×2 (08:08→18:37)
[2019-05-29] MEDS: AMLODIPINE 5MG TABLET PO SCH (08:09)
[2019-05-29] MEDS: BENZONATATE 100MG CAPSULE PO PRN ×2 (08:09→18:36)
[2019-05-29] MEDS: BUDESONIDE 0.5MG/2ML NEB HHN SCH (09:11)
[2019-05-29] MEDS: ENOXAPARIN 40MG/0.4ML SYR SUBCUT SCH (11:52)
[2019-05-29] MEDS ORDERED: HYDR-4001 MT (14:32)
[2019-05-29] MEDS: ZOLPIDEM TARTRATE 5MG TABLET PO PRN (20:58)
[2019-05-30] VITALS (12 sets, daily range): BP systolic 117–161; BP diastolic 74–93
[2019-05-30] MEDS: IPRATROPIUM/ALBUTEROL 0.5-3(2.5)MG/3ML NEB HHN SCH ×6 (01:03→20:33)
[2019-05-30] MEDS: METHYLPREDNISOLONE SOD SUCC 40 MG/ML VIAL IV SCH ×3 (02:05→18:14)
[2019-05-30] MEDS: HYDROCODONE/ACETAMINOPHEN 10/325MG TABLET PO PRN ×3 (02:10→16:27)
[2019-05-30] MEDS: GUAIFENESIN 600MG ER TABLET PO SCH ×2 (09:21→21:15)
[2019-05-30] MEDS: BENZONATATE 100MG CAPSULE PO PRN ×2 (09:21→18:14)
[2019-05-30] MEDS: AMLODIPINE 5MG TABLET PO SCH ×2 (09:22→21:15)
[2019-05-30] MEDS: THEOPHYLLINE ANHYDROUS 80 MG/15 ML 120ML PO SCH ×2 (13:11→18:14)
[2019-05-30] MEDS: ENOXAPARIN 40MG/0.4ML SYR SUBCUT SCH (21:14)
[2019-05-30] MEDS: ZOLPIDEM TARTRATE 5MG TABLET PO PRN (21:15)
[2019-05-31] VITALS (9 sets, daily range): BP systolic 128–176; BP diastolic 84–101
[2019-05-31] MEDS: HYDROCODONE/ACETAMINOPHEN 10/325MG TABLET PO PRN ×2 (00:40→08:55)
[2019-05-31] MEDS: IPRATROPIUM/ALBUTEROL 0.5-3(2.5)MG/3ML NEB HHN SCH ×5 (00:45→15:43)
[2019-05-31] MEDS: METHYLPREDNISOLONE SOD SUCC 40 MG/ML VIAL IV SCH ×2 (02:30→14:12)
[2019-05-31] MEDS: THEOPHYLLINE ANHYDROUS 80 MG/15 ML 120ML PO SCH ×3 (05:15→14:10)
[2019-05-31] MEDS: AMLODIPINE 5MG TABLET PO SCH (08:48)
[2019-05-31] MEDS: GUAIFENESIN 600MG ER TABLET PO SCH (08:48)
[2019-05-31] MEDS: BENZONATATE 100MG CAPSULE PO PRN (08:54)
[2019-05-31] MEDS ORDERED: HYDROCODONE/ACETAMINOPHEN 5/325MG TABLET PO SCH (14:00)
[2019-05-31 15:51] LABS: BG BASE EXCESS 5.5 mmol/L (-2.0-2.0); BG CARBOXYHEMOGLOBIN 0.6 % (0.5-1.5); BG DEOXYHEMOGLOBIN 9.7 % (0.0-5.0); BG HCO3 ACT 30.5 mmol/L (22.0-26.0); BG METHEMOGLOBIN 0.1 % (0.0-1.5); BG OXYGEN SATURATION 90.2 % (92.0-98.5); BG OXYHEMOGLOBIN 89.6 % (94.0-97.0); BG PCO2 46.1 mmHg (35.0-45.0); BG PH 7.439 (7.350-7.450); BG SAMPLE SITE RIGHT RADIAL; BG TOTAL HEMOGLOBIN 12.9 g/dL (12.0-18.0); BG VENT MODE ROOM AIR
== END 2019-05-31 18:43 | disposition home or self-care (01) | DRG 140 ==
LOC: ER 03:17 → 5EST 03:52 → EDBEDREQ 03:59 → EDBEDREQTM 03:59 → ENRESERV 08:08
PROVIDERS: ADMIT Internal Medicine; ATTEND Internal Medicine
PROC: 5A09357 Assistance with Respiratory Ventilation, Less than 24 Consecutive Hours, Continuous Positive Airway Pressure (ICD-10-PCS; principal; 2019-05-26)
PROC: 5A09357 Assistance with Respiratory Ventilation, Less than 24 Consecutive Hours, Continuous Positive Airway Pressure (ICD-10-PCS; 2019-05-27)
PROC: 5A09357 Assistance with Respiratory Ventilation, Less than 24 Consecutive Hours, Continuous Positive Airway Pressure (ICD-10-PCS; 2019-05-28)
PROC: 5A09357 Assistance with Respiratory Ventilation, Less than 24 Consecutive Hours, Continuous Positive Airway Pressure (ICD-10-PCS; 2019-05-29)
PROC: 5A09357 Assistance with Respiratory Ventilation, Less than 24 Consecutive Hours, Continuous Positive Airway Pressure (ICD-10-PCS; 2019-05-30)
PROC: 5A09357 Assistance with Respiratory Ventilation, Less than 24 Consecutive Hours, Continuous Positive Airway Pressure (ICD-10-PCS; 2019-05-31)
DX: J44.1 Chronic obstructive pulmonary disease with (acute) exacerbation (principal); J96.20 Acute and chronic respiratory failure, unspecified whether with hypoxia or hypercapnia; I11.0 Hypertensive heart disease with heart failure; I50.9 Heart failure, unspecified; J44.0 Chronic obstructive pulmonary disease with (acute) lower respiratory infection; J68.0 Bronchitis and pneumonitis due to chemicals, gases, fumes and vapors; F12.90 Cannabis use, unspecified, uncomplicated; F14.90 Cocaine use, unspecified, uncomplicated; Z85.819 Personal history of malignant neoplasm of unspecified site of lip, oral cavity, and pharynx; Z99.81 Dependence on supplemental oxygen; F17.210 Nicotine dependence, cigarettes, uncomplicated; Z85.89 Personal history of malignant neoplasm of other organs and systems; Z92.3 Personal history of irradiation
CPT/HCPCS: 36415; 36600; 71045; 80048; 80305; 82375; 82805; 83880; 93970; 94640; 94644; 94660; 96365; 96366; 96375; 99291; J1650; J2270; J2920; J2930; J3105; J3475; J3490; J7611; J7620; J7626

== ENCOUNTER 2019-07-07 19:33 | Inpatient (IN) | payer MEDICAID ==
[~2019-07-07] VITALS: Ht 177.8 cm; Wt 71.2 kg
[~2019-07-07 19:33] MED LIST changes: +HYDR-4001 MT
[2019-07-07] MEDS ORDERED: METHYLPREDNISOLONE SOD SUCC 125 MG/2 ML VIAL IV STA (19:35)
[2019-07-07] MEDS ORDERED: MAGNESIUM 2 G PREMIX 50 ML IV ONE (19:45)
[2019-07-07] MEDS ORDERED: LEVOFLOXACIN 750MG PREMIX 150 ML IV ONE (19:45)
[2019-07-07] MEDS ORDERED: IPRATROPIUM/ALBUTEROL 0.5-3(2.5)MG/3ML NEB HHN ONE (19:45)
[2019-07-07 20:00] LABS: HEMATOCRIT. 36.1 % (42.0-52.0); HEMOGLOBIN. 12.5 g/dL (14.0-18.0); MEAN CORPUSCULAR HEMOGLOBIN 32.7 pg (28.0-32.0); MEAN CORPUSCULAR VOLUME 94.1 fL (80.0-94.0); MEAN PLATELET VOLUME 7.5 fl (7.4-10.4); PLATELET 280 x1000/uL (130-400); RED BLOOD CELL COUNT 3.83 mill/uL (4.7-6.1); RED CELL DISTRIBUTION WIDTH 13.6 % (11.6-14.6)
[2019-07-07 20:05] LABS: CHLORIDE 102 mEq/L (98-107)
[2019-07-07 20:08] LABS: ETHANOL BLOOD < 10 mg/dL
[2019-07-07 20:21] LABS: PLATELET ESTIMATE NORMAL
[2019-07-07] MEDS ORDERED: ONDANSETRON HCL 4MG/2ML INJ IV ONE (20:45)
[2019-07-07] MEDS ORDERED: MORPHINE SULFATE 4 MG/ML CPJ (NOT FOR IM USE) IV ONE (20:45)
[2019-07-08] VITALS (11 sets, daily range): BP systolic 100–155; BP diastolic 63–95
[2019-07-08] MEDS ORDERED: IPRATROPIUM/ALBUTEROL 0.5-3(2.5)MG/3ML NEB HHN PRN (01:00)
[2019-07-08] MEDS: METHYLPREDNISOLONE SOD SUCC 40 MG/ML VIAL IV SCH ×2 (02:13→06:17)
[2019-07-08 03:45] LABS: CLARITY URINE CLEAR (CLEAR); COLOR URINE YELLOW (YELLOW); KETONES URINE TRACE (NEGATIVE); LEUKOCYTE ESTERASE URINE NEGATIVE (NEGATIVE); NITRITE URINE NEGATIVE (NEGATIVE); OCCULT BLOOD URINE NEGATIVE (NEGATIVE); PH URINE 5.5 (4.5-8.0); PROTEIN URINE TRACE (NEGATIVE); SPECIFIC GRAVITY URINE 1.031 (1.005-1.030)
[2019-07-08 04:18] LABS: *AMPHETAMINES SCREEN URINE NEGATIVE (NEGATIVE); *BARBITURATES SCREEN URINE NEGATIVE (NEGATIVE); *BENZODIAZEPINES SCREEN URINE NEGATIVE (NEGATIVE); *COCAINE SCREEN URINE PRESUMTIVE POSITIVE (NEGATIVE); METHADONE URINE SCREEN NEGATIVE (NEGATIVE); OPIATES URINE SCREEN PRESUMTIVE POSITIVE (NEGATIVE)
[2019-07-08 04:20] LABS: CANNABINOID URINE SCREEN NEGATIVE (NEGATIVE); PHENCYCLIDINE URINE SCREEN PRESUMTIVE POSITIVE (NEGATIVE)
[2019-07-08] MEDS: HYDROCODONE/ACETAMINOPHEN 10/325MG TABLET PO PRN ×3 (04:24→20:23)
[2019-07-08] MEDS: IPRATROPIUM/ALBUTEROL 0.5-3(2.5)MG/3ML NEB HHN SCH ×5 (04:40→20:00)
[2019-07-08] MEDS ORDERED: IPRATROPIUM/ALBUTEROL 0.5-3(2.5)MG/3ML NEB HHN SCH (06:00)
[2019-07-08] MEDS: PANTOPRAZOLE 40MG DR TABLET PO SCH (06:17)
[2019-07-08 07:12] LABS: BASOPHILS % 0.8 % (0.0-2.0); HEMATOCRIT. 31.1 % (42.0-52.0); HEMOGLOBIN. 11.1 g/dL (14.0-18.0); LYMPHOCYTES % 3.5 % (20.0-50.0); MEAN CORPUSCULAR HEMOGLOBIN 33.3 pg (28.0-32.0); MEAN CORPUSCULAR VOLUME 93.6 fL (80.0-94.0); MEAN PLATELET VOLUME 7.8 fl (7.4-10.4); MONOCYTES % 1.2 % (2.0-8.0); NEUTROPHILS % 94.5 % (40.0-76.0); PLATELET 244 x1000/uL (130-400); RED BLOOD CELL COUNT 3.32 mill/uL (4.7-6.1); RED CELL DISTRIBUTION WIDTH 13.3 % (11.6-14.6)
[2019-07-08 07:16] LABS: CHLORIDE 100 mEq/L (98-107)
[2019-07-08] MEDS: ENOXAPARIN 40MG/0.4ML SYR SUBCUT SCH (08:52)
[2019-07-08] MEDS: GUAIFENESIN 600MG ER TABLET PO SCH ×2 (08:52→20:23)
[2019-07-08] MEDS: THEOPHYLLINE ANHYDROUS 80 MG/15 ML 120ML PO SCH ×2 (08:52→17:45)
[2019-07-08] MEDS ORDERED: ADVAIR INH SCH (09:00)
[2019-07-08] MEDS ORDERED: BUDESONIDE 0.5MG/2ML NEB HHN SCH (09:00)
[2019-07-08] MEDS ORDERED: SPIRIVA 18 MCG INH SCH (09:00)
[2019-07-08] MEDS ORDERED: TERBUTALINE SULFATE 1MG/ML VIAL SUBCUT NR (12:30)
[2019-07-08] MEDS: METHYLPREDNISOLONE SOD SUCC 125 MG/2 ML VIAL IV SCH ×2 (13:17→20:23)
[2019-07-08] MEDS: MONTELUKAST SODIUM 10MG TABLET PO SCH (17:44)
[2019-07-08] MEDS: ZOLPIDEM TARTRATE 5MG TABLET PO PRN (20:55)
[2019-07-08] MEDS: FLUTICASONE PROPIONATE 50MCG/SPRAY BOTTLE BOTHNSTRLS SCH (21:00)
[2019-07-08] MEDS ORDERED: LEVOFLOXACIN 500MG PREMIX 100 ML IV SCH (21:00)
[2019-07-09] VITALS (8 sets, daily range): BP systolic 130–169; BP diastolic 80–108
[2019-07-09] MEDS: IPRATROPIUM/ALBUTEROL 0.5-3(2.5)MG/3ML NEB HHN SCH ×7 (01:40→21:46)
[2019-07-09] MEDS: METHYLPREDNISOLONE SOD SUCC 125 MG/2 ML VIAL IV SCH ×3 (04:10→20:05)
[2019-07-09] MEDS: PANTOPRAZOLE 40MG DR TABLET PO SCH (06:14)
[2019-07-09] MEDS: ENOXAPARIN 40MG/0.4ML SYR SUBCUT SCH (08:26)
[2019-07-09] MEDS: THEOPHYLLINE ANHYDROUS 80 MG/15 ML 120ML PO SCH ×2 (08:27→17:01)
[2019-07-09] MEDS: GUAIFENESIN 600MG ER TABLET PO SCH ×2 (08:27→20:05)
[2019-07-09] MEDS: HYDROCODONE/ACETAMINOPHEN 10/325MG TABLET PO PRN ×2 (09:53→17:12)
[2019-07-09] MEDS: FLUTICASONE PROPIONATE 50MCG/SPRAY BOTTLE BOTHNSTRLS SCH ×2 (10:33→20:06)
[2019-07-09] MEDS: MONTELUKAST SODIUM 10MG TABLET PO SCH (17:01)
[2019-07-09] MEDS: ZOLPIDEM TARTRATE 5MG TABLET PO PRN (21:29)
[2019-07-09] MEDS: BENZONATATE 100MG CAPSULE PO PRN (23:24)
[2019-07-10 00:38] VITALS: BP 161/90
[2019-07-10] MEDS ORDERED: CLONIDINE 0.1MG TABLET PO PRN (00:45)
[2019-07-10] MEDS: IPRATROPIUM/ALBUTEROL 0.5-3(2.5)MG/3ML NEB HHN SCH ×5 (01:17→20:24)
[2019-07-10] MEDS: METHYLPREDNISOLONE SOD SUCC 125 MG/2 ML VIAL IV SCH ×2 (04:12→11:55)
[2019-07-10 04:15] VITALS: BP 175/96
[2019-07-10] MEDS: PANTOPRAZOLE 40MG DR TABLET PO SCH (06:39)
[2019-07-10] MEDS ORDERED: GUAIFENESIN-DM 200MG-20MG/10ML UDC PO PRN (07:15)
[2019-07-10] MEDS ORDERED: CLONIDINE 0.2MG TABLET PO PRN (07:15)
[2019-07-10] MEDS: BENZONATATE 100MG CAPSULE PO PRN ×2 (07:34→15:47)
[2019-07-10 08:05] VITALS: BP 163/88
[2019-07-10] MEDS: HYDROCODONE/ACETAMINOPHEN 10/325MG TABLET PO PRN ×2 (08:34→12:34)
[2019-07-10] MEDS: GUAIFENESIN 600MG ER TABLET PO SCH ×2 (08:35→21:25)
[2019-07-10] MEDS: FLUTICASONE PROPIONATE 50MCG/SPRAY BOTTLE BOTHNSTRLS SCH ×2 (08:35→21:25)
[2019-07-10] MEDS: ENOXAPARIN 40MG/0.4ML SYR SUBCUT SCH (08:35)
[2019-07-10] MEDS: THEOPHYLLINE ANHYDROUS 80 MG/15 ML 120ML PO SCH ×2 (08:35→17:20)
[2019-07-10 11:55] VITALS: BP 120/74
[2019-07-10] MEDS: LOSARTAN POTASSIUM 50 MG TABLET PO SCH (15:42)
[2019-07-10 15:58] VITALS: BP 114/77
[2019-07-10] MEDS: MONTELUKAST SODIUM 10MG TABLET PO SCH (17:21)
[2019-07-10 20:00] VITALS: BP 129/84
[2019-07-10] MEDS: METHYLPREDNISOLONE SOD SUCC 40 MG/ML VIAL IV SCH (21:25)
[2019-07-10] MEDS: ZOLPIDEM TARTRATE 5MG TABLET PO PRN (21:25)
[2019-07-10] MEDS: AMLODIPINE 5MG TABLET PO SCH (21:26)
[2019-07-11] VITALS: BP 149/83
[2019-07-11] MEDS: IPRATROPIUM/ALBUTEROL 0.5-3(2.5)MG/3ML NEB HHN SCH ×6 (00:17→21:11)
[2019-07-11 04:00] VITALS: BP 152/89
[2019-07-11] MEDS: GUAIFENESIN 600MG ER TABLET PO SCH ×2 (08:50→21:15)
[2019-07-11] MEDS: FLUTICASONE PROPIONATE 50MCG/SPRAY BOTTLE BOTHNSTRLS SCH ×2 (08:50→21:16)
[2019-07-11] MEDS: AMLODIPINE 5MG TABLET PO SCH ×2 (08:50→21:24)
[2019-07-11] MEDS: LOSARTAN POTASSIUM 50 MG TABLET PO SCH (08:50)
[2019-07-11] MEDS: FAMOTIDINE 20MG TABLET PO SCH ×2 (08:50→16:58)
[2019-07-11] MEDS: METHYLPREDNISOLONE SOD SUCC 40 MG/ML VIAL IV SCH ×2 (08:50→21:16)
[2019-07-11] MEDS: ENOXAPARIN 40MG/0.4ML SYR SUBCUT SCH (08:51)
[2019-07-11] MEDS: THEOPHYLLINE ANHYDROUS 80 MG/15 ML 120ML PO SCH ×2 (08:51→16:59)
[2019-07-11] MEDS ORDERED: TERBUTALINE SULFATE 1MG/ML VIAL SUBCUT NR (11:30)
[2019-07-11 12:00] VITALS: BP 130/82
[2019-07-11 16:00] VITALS: BP 118/75
[2019-07-11] MEDS: MONTELUKAST SODIUM 10MG TABLET PO SCH (16:58)
[2019-07-11 20:51] VITALS: BP 123/67
[2019-07-11] MEDS: ZOLPIDEM TARTRATE 5MG TABLET PO PRN (21:24)
[2019-07-11] MEDS: HYDROCODONE/ACETAMINOPHEN 10/325MG TABLET PO PRN (21:25)
[2019-07-12 00:22] VITALS: BP 130/85
[2019-07-12] MEDS: IPRATROPIUM/ALBUTEROL 0.5-3(2.5)MG/3ML NEB HHN SCH ×4 (01:29→12:00)
[2019-07-12 04:45] VITALS: BP 157/88
[2019-07-12 08:00] VITALS: BP 149/83
[2019-07-12] MEDS: FAMOTIDINE 20MG TABLET PO SCH (08:59)
[2019-07-12] MEDS: LOSARTAN POTASSIUM 50 MG TABLET PO SCH (08:59)
[2019-07-12] MEDS: AMLODIPINE 5MG TABLET PO SCH (08:59)
[2019-07-12] MEDS: ENOXAPARIN 40MG/0.4ML SYR SUBCUT SCH (09:00)
[2019-07-12] MEDS: GUAIFENESIN 600MG ER TABLET PO SCH (09:00)
[2019-07-12] MEDS: METHYLPREDNISOLONE SOD SUCC 40 MG/ML VIAL IV SCH (09:00)
[2019-07-12] MEDS: FLUTICASONE PROPIONATE 50MCG/SPRAY BOTTLE BOTHNSTRLS SCH (09:00)
[2019-07-12] MEDS: THEOPHYLLINE ANHYDROUS 80 MG/15 ML 120ML PO SCH (09:01)
[2019-07-12] MEDS: HYDROCODONE/ACETAMINOPHEN 10/325MG TABLET PO PRN (09:21)
[2019-07-12] MEDS ORDERED: GUAI600T26 MT (11:09)
[2019-07-12] MEDS ORDERED: BENZ-16 MT (11:09)
[2019-07-12] MEDS ORDERED: LOSA100T32 MT (11:09)
[2019-07-12] MEDS ORDERED: AMLO5TAB88 MT (11:09)
[2019-07-12] MEDS ORDERED: P20 MT (11:09)
[2019-07-12 11:29] VITALS: BP 149/83
[2019-07-12 12:00] VITALS: BP 150/86
[2019-07-31] MEDS ORDERED: ALBU18HF2 IH (11:28)
[2019-07-31] MEDS ORDERED: TIOT18CA3 INH (11:28)
[2019-07-31] MEDS ORDERED: IPRA3AMP9 NEB (11:28)
[2019-07-31] MEDS ORDERED: BENZ-16 MT (11:28)
[2019-07-31] MEDS ORDERED: P20 MT (11:28)
[2019-07-31] MEDS ORDERED: FLUT1DIS3 INH (11:28)
== END 2019-07-12 14:10 | disposition home or self-care (01) | DRG 144 ==
LOC: ER 19:33 → EDBEDREQTM 21:17 → EDBEDREQSVC 21:17 → EDBEDREQ 21:17 → ENRESERV 22:34 → 3WST 23:50 → 6WST 07-08 17:18
PROVIDERS: ADMIT Internal Medicine; ATTEND Internal Medicine
PROC: 5A09357 Assistance with Respiratory Ventilation, Less than 24 Consecutive Hours, Continuous Positive Airway Pressure (ICD-10-PCS; principal; 2019-07-08)
PROC: 5A09357 Assistance with Respiratory Ventilation, Less than 24 Consecutive Hours, Continuous Positive Airway Pressure (ICD-10-PCS; 2019-07-09)
PROC: 5A09357 Assistance with Respiratory Ventilation, Less than 24 Consecutive Hours, Continuous Positive Airway Pressure (ICD-10-PCS; 2019-07-11)
PROC: 5A09357 Assistance with Respiratory Ventilation, Less than 24 Consecutive Hours, Continuous Positive Airway Pressure (ICD-10-PCS; 2019-07-12)
DX: J68.0 Bronchitis and pneumonitis due to chemicals, gases, fumes and vapors (principal); J96.21 Acute and chronic respiratory failure with hypoxia; I50.9 Heart failure, unspecified; I11.0 Hypertensive heart disease with heart failure; E44.0 Moderate protein-calorie malnutrition; J44.1 Chronic obstructive pulmonary disease with (acute) exacerbation; E78.00 Pure hypercholesterolemia, unspecified; F17.210 Nicotine dependence, cigarettes, uncomplicated; F14.10 Cocaine abuse, uncomplicated; T59.891A Toxic effect of other specified gases, fumes and vapors, accidental (unintentional), initial encounter; F11.10 Opioid abuse, uncomplicated; F12.10 Cannabis abuse, uncomplicated; D64.9 Anemia, unspecified; Z99.81 Dependence on supplemental oxygen; Z85.819 Personal history of malignant neoplasm of unspecified site of lip, oral cavity, and pharynx; Z92.3 Personal history of irradiation; Z79.899 Other long term (current) drug therapy; Z68.22 Body mass index [BMI] 22.0-22.9, adult; Z71.51 Drug abuse counseling and surveillance of drug abuser; Y92.89 Other specified places as the place of occurrence of the external cause
CPT/HCPCS: 36415; 71045; 80048; 80053; 80305; 80320; 81003; 83605; 83880; 84443; 84484; 85025; 93005; 94640; 94660; 96365; 99291; J1650; J1956; J2270; J2405; J2920; J2930; J3105; J3475; J7620; J7626; G0480

== ENCOUNTER 2019-08-21 08:06 | Inpatient (IN) | payer MEDICAID ==
[~2019-08-21] VITALS: Ht 177.8 cm; Wt 55.8 kg
[~2019-08-21 08:06] MED LIST changes: +AMLO5TAB88 MT; -HYDR-4001 MT; -LISI-186 MT; +LOSA100T32 MT; -PRED5TAB MT
[2019-08-21] MEDS ORDERED: IPRATROPIUM BROMIDE (0.02%) 0.5MG/2.5ML NEB HHN STA (08:38)
[2019-08-21] MEDS ORDERED: ALBUTEROL (0.083%) 2.5MG/3ML NEB HHN STA (08:38)
[2019-08-21] MEDS ORDERED: METHYLPREDNISOLONE SOD SUCC 125 MG/2 ML VIAL IV STA (08:38)
[2019-08-21 09:00] LABS: EOSINOPHILS % 5.5 % (0.0-5.0); HEMATOCRIT. 37.7 % (42.0-52.0); HEMOGLOBIN. 12.6 g/dL (14.0-18.0); LYMPHOCYTES % 23.9 % (20.0-50.0); MEAN CORPUSCULAR HEMOGLOBIN 31.4 pg (28.0-32.0); MEAN PLATELET VOLUME 7.6 fl (7.4-10.4); MONOCYTES % 11.7 % (2.0-8.0); NEUTROPHILS % 57.9 % (40.0-76.0); PLATELET 261 x1000/uL (130-400); RED CELL DISTRIBUTION WIDTH 13.8 % (11.6-14.6)
[2019-08-21 09:06] LABS: CHLORIDE 107 mEq/L (98-107)
[2019-08-21] MEDS ORDERED: HYDROCODONE/ACETAMINOPHEN 5/325MG TABLET PO ONE (11:15)
[2019-08-22] MEDS ORDERED: ALBUTEROL (0.083%) 2.5MG/3ML NEB HHN STA (08:43)
[2019-08-22] MEDS ORDERED: ALBUTEROL (0.083%) 2.5MG/3ML NEB ONE (08:56)
[2019-08-22 10:13] LABS: BG BASE EXCESS 1.1 mmol/L (-2.0-2.0); BG CARBOXYHEMOGLOBIN 0.3 % (0.5-1.5); BG DEOXYHEMOGLOBIN 1.3 % (0.0-5.0); BG FRACTION INSPIRED OXYGEN 45; BG HCO3 ACT 25.5 mmol/L (22.0-26.0); BG METHEMOGLOBIN 0.3 % (0.0-1.5); BG OXYGEN SATURATION 98.7 % (92.0-98.5); BG OXYHEMOGLOBIN 98.1 % (94.0-97.0); BG PCO2 39.8 mmHg (35.0-45.0); BG PH 7.424 (7.350-7.450); BG PO2 176.7 mmHg (75.0-100.0); BG SAMPLE SITE RIGHT RADIAL; BG TOTAL HEMOGLOBIN 12.5 g/dL (12.0-18.0); BG VENT MODE MASK - BIPAP; BG VENT RATE 16 set
[2019-08-22] MEDS ORDERED: LIDOCAINE HCL/PF 1% 2ML VIAL ONE (10:41)
[2019-08-22] MEDS ORDERED: DOCUSATE SODIUM 100MG CAPSULE PO PRN (11:00)
[2019-08-22] MEDS ORDERED: IPRATROPIUM/ALBUTEROL 0.5-3(2.5)MG/3ML NEB NEB PRN (11:00)
[2019-08-22] MEDS ORDERED: MAGNESIUM/ALUMINUM HYDROXIDE/SIMETHICONE 30ML UDC PO PRN (11:00)
[2019-08-22] MEDS ORDERED: CLONIDINE 0.1MG TABLET PO PRN (11:00)
[2019-08-22] MEDS ORDERED: ONDANSETRON HCL 4MG/2ML INJ IV PRN (11:00)
[2019-08-22] MEDS ORDERED: ACETAMINOPHEN 325MG TABLET PO PRN (11:00)
[2019-08-22 11:48] LABS: CLARITY URINE CLEAR (CLEAR); COLOR URINE YELLOW (YELLOW); KETONES URINE NEGATIVE (NEGATIVE); LEUKOCYTE ESTERASE URINE NEGATIVE (NEGATIVE); NITRITE URINE NEGATIVE (NEGATIVE); OCCULT BLOOD URINE NEGATIVE (NEGATIVE); PH URINE 6.5 (4.5-8.0); PROTEIN URINE NEGATIVE (NEGATIVE); SPECIFIC GRAVITY URINE 1.011 (1.005-1.030)
[2019-08-22 12:00] LABS: *AMPHETAMINES SCREEN URINE NEGATIVE (NEGATIVE); *BARBITURATES SCREEN URINE NEGATIVE (NEGATIVE); *BENZODIAZEPINES SCREEN URINE NEGATIVE (NEGATIVE); *COCAINE SCREEN URINE PRESUMTIVE POSITIVE (NEGATIVE)
[2019-08-22 12:01] LABS: CANNABINOID URINE SCREEN NEGATIVE (NEGATIVE); METHADONE URINE SCREEN NEGATIVE (NEGATIVE); OPIATES URINE SCREEN NEGATIVE (NEGATIVE); PHENCYCLIDINE URINE SCREEN PRESUMTIVE POSITIVE (NEGATIVE)
[2019-08-22 12:25] LABS: CHLORIDE 105 mEq/L (98-107)
[2019-08-22 12:46] VITALS: BP 142/98
[2019-08-22 12:47] VITALS: BP 143/95
[2019-08-22] MEDS: AZITHROMYCIN 500 MG TABLET PO SCH (13:18)
[2019-08-22] MEDS: OMEPRAZOLE 20MG CAPSULE EXTENDED RELEASE PO SCH ×2 (13:18→21:21)
[2019-08-22] MEDS: HYDROCODONE/ACETAMINOPHEN 5/325MG TABLET PO PRN (13:19)
[2019-08-22] MEDS: ENOXAPARIN 40MG/0.4ML SYR SUBCUT SCH (13:19)
[2019-08-22] MEDS: METHYLPREDNISOLONE SOD SUCC 40 MG/ML VIAL IV SCH ×3 (13:20→22:00)
[2019-08-22 14:00] VITALS: BP 154/96
[2019-08-22 16:00] VITALS: BP 124/83
[2019-08-22] MEDS: MONTELUKAST SODIUM 10MG TABLET PO SCH (16:48)
[2019-08-22] MEDS: THEOPHYLLINE ANHYDROUS 80 MG/15 ML 120ML PO SCH (16:48)
[2019-08-22 17:45] VITALS: BP 145/101
[2019-08-22] MEDS ORDERED: BUDESONIDE 0.5MG/2ML NEB HHN SCH (18:00)
[2019-08-22 18:14] LABS: CREATINE KINASE 98 IU/L (39-308)
[2019-08-22 18:15] LABS: CREATINE KINASE MB FRACTION 2.3 ng/mL (0.5-3.6)
[2019-08-23] VITALS (9 sets, daily range): BP systolic 123–143; BP diastolic 72–88
[2019-08-23 02:11] LABS: CREATINE KINASE 88 IU/L (39-308)
[2019-08-23 02:12] LABS: CREATINE KINASE MB FRACTION 1.5 ng/mL (0.5-3.6)
[2019-08-23] MEDS: THEOPHYLLINE ANHYDROUS 80 MG/15 ML 120ML PO SCH ×3 (03:06→17:05)
[2019-08-23] MEDS: METHYLPREDNISOLONE SOD SUCC 40 MG/ML VIAL IV SCH ×4 (05:42→22:42)
[2019-08-23] MEDS: OMEPRAZOLE 20MG CAPSULE EXTENDED RELEASE PO SCH (06:12)
[2019-08-23 06:25] LABS: EOSINOPHILS % 0.5 % (0.0-5.0); HEMATOCRIT. 30.4 % (42.0-52.0); HEMOGLOBIN. 10.8 g/dL (14.0-18.0); LYMPHOCYTES % 17.6 % (20.0-50.0); MEAN CORPUSCULAR VOLUME 93.1 fL (80.0-94.0); MONOCYTES % 9.2 % (2.0-8.0); NEUTROPHILS % 71.7 % (40.0-76.0); PLATELET 245 x1000/uL (130-400); RED BLOOD CELL COUNT 3.26 mill/uL (4.7-6.1); RED CELL DISTRIBUTION WIDTH 13.8 % (11.6-14.6)
[2019-08-23] MEDS: AZITHROMYCIN 500 MG TABLET PO SCH (09:18)
[2019-08-23] MEDS: GUAIFENESIN 200MG/10ML SUGAR FREE UDC PO PRN (09:18)
[2019-08-23] MEDS: ENOXAPARIN 40MG/0.4ML SYR SUBCUT SCH (09:18)
[2019-08-23] MEDS: LOSARTAN POTASSIUM 100 MG TABLET PO SCH (14:20)
[2019-08-23] MEDS: MONTELUKAST SODIUM 10MG TABLET PO SCH (17:05)
[2019-08-23] MEDS: FAMOTIDINE 20MG TABLET PO SCH (21:01)
[2019-08-23] MEDS: ZOLPIDEM TARTRATE 5MG TABLET PO PRN (21:02)
[2019-08-23] MEDS: AMLODIPINE 5MG TABLET PO SCH (21:02)
[2019-08-24] VITALS (12 sets, daily range): BP systolic 119–141; BP diastolic 51–96
[2019-08-24] MEDS: THEOPHYLLINE ANHYDROUS 80 MG/15 ML 120ML PO SCH ×3 (01:51→17:03)
[2019-08-24] MEDS: METHYLPREDNISOLONE SOD SUCC 40 MG/ML VIAL IV SCH ×3 (05:35→21:15)
[2019-08-24] MEDS: FAMOTIDINE 20MG TABLET PO SCH ×2 (05:35→20:11)
[2019-08-24] MEDS: GUAIFENESIN 200MG/10ML SUGAR FREE UDC PO PRN ×2 (05:43→16:24)
[2019-08-24] MEDS: HYDROCODONE/ACETAMINOPHEN 5/325MG TABLET PO PRN ×2 (05:45→17:07)
[2019-08-24 07:11] LABS: CHLORIDE 102 mEq/L (98-107)
[2019-08-24 07:56] LABS: BASOPHILS % 0.2 % (0.0-2.0); HEMATOCRIT. 32.6 % (42.0-52.0); HEMOGLOBIN. 11.5 g/dL (14.0-18.0); LYMPHOCYTES % 13.5 % (20.0-50.0); MEAN CORPUSCULAR HEMOGLOBIN 32.8 pg (28.0-32.0); MEAN CORPUSCULAR VOLUME 92.8 fL (80.0-94.0); MEAN PLATELET VOLUME 7.9 fl (7.4-10.4); MONOCYTES % 2.8 % (2.0-8.0); NEUTROPHILS % 83.5 % (40.0-76.0); PLATELET 285 x1000/uL (130-400); RED BLOOD CELL COUNT 3.51 mill/uL (4.7-6.1); RED CELL DISTRIBUTION WIDTH 13.5 % (11.6-14.6)
[2019-08-24] MEDS: ENOXAPARIN 40MG/0.4ML SYR SUBCUT SCH (08:04)
[2019-08-24] MEDS: LOSARTAN POTASSIUM 100 MG TABLET PO SCH (08:05)
[2019-08-24] MEDS: AZITHROMYCIN 500 MG TABLET PO SCH (08:05)
[2019-08-24] MEDS: AMLODIPINE 5MG TABLET PO SCH ×2 (08:05→20:12)
[2019-08-24] MEDS ORDERED: TERBUTALINE SULFATE 1MG/ML VIAL SUBCUT NR (14:15)
[2019-08-24] MEDS: IPRATROPIUM/ALBUTEROL 0.5-3(2.5)MG/3ML NEB HHN SCH ×2 (15:42→21:03)
[2019-08-24] MEDS: MONTELUKAST SODIUM 10MG TABLET PO SCH (16:15)
[2019-08-24] MEDS: ZOLPIDEM TARTRATE 5MG TABLET PO PRN (21:15)
[2019-08-25] VITALS (14 sets, daily range): BP systolic 107–151; BP diastolic 61–87
[2019-08-25] MEDS: IPRATROPIUM/ALBUTEROL 0.5-3(2.5)MG/3ML NEB HHN SCH ×6 (00:46→20:13)
[2019-08-25] MEDS: THEOPHYLLINE ANHYDROUS 80 MG/15 ML 120ML PO SCH ×3 (01:59→17:57)
[2019-08-25 06:13] LABS: CHLORIDE 99 mEq/L (98-107)
[2019-08-25] MEDS: FAMOTIDINE 20MG TABLET PO SCH ×2 (06:17→21:11)
[2019-08-25] MEDS: METHYLPREDNISOLONE SOD SUCC 40 MG/ML VIAL IV SCH ×3 (06:17→21:11)
[2019-08-25 06:23] LABS: HEMATOCRIT. 31.4 % (42.0-52.0); HEMOGLOBIN. 10.8 g/dL (14.0-18.0); MEAN CORPUSCULAR HEMOGLOBIN 31.6 pg (28.0-32.0); MEAN PLATELET VOLUME 7.8 fl (7.4-10.4); PLATELET 298 x1000/uL (130-400); RED BLOOD CELL COUNT 3.41 mill/uL (4.7-6.1); RED CELL DISTRIBUTION WIDTH 13.7 % (11.6-14.6)
[2019-08-25] MEDS: LOSARTAN POTASSIUM 100 MG TABLET PO SCH (08:08)
[2019-08-25] MEDS: AMLODIPINE 5MG TABLET PO SCH ×2 (08:08→21:12)
[2019-08-25] MEDS: AZITHROMYCIN 500 MG TABLET PO SCH (08:08)
[2019-08-25] MEDS: ENOXAPARIN 40MG/0.4ML SYR SUBCUT SCH (08:08)
[2019-08-25] MEDS: HYDROCODONE/ACETAMINOPHEN 5/325MG TABLET PO PRN (10:29)
[2019-08-25 14:04] LABS: PLATELET ESTIMATE NORMAL
[2019-08-25] MEDS ORDERED: POTASSIUM CHLORIDE 20MEQ TABLET SR PO NR (15:00)
[2019-08-25] MEDS: GUAIFENESIN 200MG/10ML SUGAR FREE UDC PO PRN (15:52)
[2019-08-25] MEDS: MONTELUKAST SODIUM 10MG TABLET PO SCH (17:54)
[2019-08-25] MEDS: ZOLPIDEM TARTRATE 5MG TABLET PO PRN (21:11)
[2019-08-26] VITALS (8 sets, daily range): BP systolic 131–150; BP diastolic 51–86
[2019-08-26] MEDS: THEOPHYLLINE ANHYDROUS 80 MG/15 ML 120ML PO SCH ×2 (02:42→09:09)
[2019-08-26] MEDS: IPRATROPIUM/ALBUTEROL 0.5-3(2.5)MG/3ML NEB HHN SCH ×2 (04:00)
[2019-08-26] MEDS: FAMOTIDINE 20MG TABLET PO SCH (06:04)
[2019-08-26] MEDS: METHYLPREDNISOLONE SOD SUCC 40 MG/ML VIAL IV SCH ×2 (06:04→13:21)
[2019-08-26 06:40] LABS: CHLORIDE 100 mEq/L (98-107)
[2019-08-26 06:46] LABS: HEMATOCRIT. 29.5 % (42.0-52.0); HEMOGLOBIN. 10.4 g/dL (14.0-18.0); MEAN CORPUSCULAR HEMOGLOBIN 32.6 pg (28.0-32.0); MEAN CORPUSCULAR VOLUME 92.1 fL (80.0-94.0); MEAN PLATELET VOLUME 8.1 fl (7.4-10.4); PLATELET 281 x1000/uL (130-400); RED CELL DISTRIBUTION WIDTH 13.7 % (11.6-14.6)
[2019-08-26] MEDS: LOSARTAN POTASSIUM 100 MG TABLET PO SCH ×2 (09:00→09:08)
[2019-08-26] MEDS: AMLODIPINE 5MG TABLET PO SCH ×2 (09:00→09:08)
[2019-08-26] MEDS: AZITHROMYCIN 500 MG TABLET PO SCH (09:08)
[2019-08-26] MEDS: ENOXAPARIN 40MG/0.4ML SYR SUBCUT SCH (09:09)
[2019-08-26] MEDS ORDERED: ALBU18HF2 IH (12:09)
[2019-08-26] MEDS ORDERED: IPRA3AMP9 NEB (12:09)
[2019-08-26] MEDS ORDERED: TIOT18CA3 INH (12:09)
[2019-08-26] MEDS ORDERED: LOSA100T32 MT (12:09)
[2019-08-26] MEDS ORDERED: FLUT1DIS3 INH (12:09)
[2019-08-26] MEDS ORDERED: AMLO5TAB88 MT (12:09)
[2019-08-27 04:07] LABS: INFLUENZA B AB CF Negative (Neg:<1:8)
[2019-08-27 04:52] LABS: PLATELET ESTIMATE NORMAL
== END 2019-08-26 15:32 | disposition home or self-care (01) | DRG 140 ==
LOC: ER 08:15 → 3WST 08-22 10:35 → ENRESERV 08-22 10:55
PROVIDERS: ADMIT Internal Medicine; ATTEND Internal Medicine
PROC: 5A09457 Assistance with Respiratory Ventilation, 24-96 Consecutive Hours, Continuous Positive Airway Pressure (ICD-10-PCS; principal; 2019-08-22)
DX: J44.1 Chronic obstructive pulmonary disease with (acute) exacerbation (principal); J96.00 Acute respiratory failure, unspecified whether with hypoxia or hypercapnia; J68.0 Bronchitis and pneumonitis due to chemicals, gases, fumes and vapors; I11.0 Hypertensive heart disease with heart failure; I50.32 Chronic diastolic (congestive) heart failure; R13.10 Dysphagia, unspecified; Z99.81 Dependence on supplemental oxygen; C14.0 Malignant neoplasm of pharynx, unspecified; D64.9 Anemia, unspecified; Z60.2 Problems related to living alone; E78.00 Pure hypercholesterolemia, unspecified; E78.5 Hyperlipidemia, unspecified; F14.10 Cocaine abuse, uncomplicated; Z87.891 Personal history of nicotine dependence; Z92.3 Personal history of irradiation; Z85.819 Personal history of malignant neoplasm of unspecified site of lip, oral cavity, and pharynx; Z82.49 Family history of ischemic heart disease and other diseases of the circulatory system; Z79.51 Long term (current) use of inhaled steroids; Z79.899 Other long term (current) drug therapy
CPT/HCPCS: 36415; 36600; 71045; 80048; 80053; 80061; 80305; 81003; 82375; 82550; 82553; 82805; 83735; 83880; 84443; 84484; 85025; 86710; 93005; 93970; 94640; 94644; 94660; 96372; 96374; 99285; J1650; J2920; J2930; J3105; J3490

== ENCOUNTER 2019-09-08 06:21 | Inpatient (IN) | payer MEDICAID ==
[~2019-09-08] VITALS: Ht 177.8 cm; Wt 60.0 kg
[2019-09-08] MEDS ORDERED: MAGNESIUM 2 G PREMIX 50 ML IV STA (06:25)
[2019-09-08] MEDS ORDERED: ALBUTEROL (0.083%) 2.5MG/3ML NEB HHN STA (06:25)
[2019-09-08] MEDS ORDERED: IPRATROPIUM BROMIDE (0.02%) 0.5MG/2.5ML NEB HHN STA (06:25)
[2019-09-08] MEDS ORDERED: METHYLPREDNISOLONE SOD SUCC 125 MG/2 ML VIAL IV STA (06:25)
[2019-09-08 07:22] LABS: BASOPHILS % 0.6 % (0.0-2.0); EOSINOPHILS % 2.4 % (0.0-5.0); HEMATOCRIT. 34.5 % (42.0-52.0); HEMOGLOBIN. 11.9 g/dL (14.0-18.0); LYMPHOCYTES % 26.7 % (20.0-50.0); MEAN CORPUSCULAR HEMOGLOBIN 32.4 pg (28.0-32.0); MEAN CORPUSCULAR VOLUME 93.7 fL (80.0-94.0); MEAN PLATELET VOLUME 7.6 fl (7.4-10.4); MONOCYTES % 13.6 % (2.0-8.0); NEUTROPHILS % 56.7 % (40.0-76.0); PLATELET 216 x1000/uL (130-400); RED BLOOD CELL COUNT 3.68 mill/uL (4.7-6.1); RED CELL DISTRIBUTION WIDTH 13.4 % (11.6-14.6)
[2019-09-08 07:28] LABS: CHLORIDE 105 mEq/L (98-107)
[2019-09-08 08:27] LABS: BG BASE EXCESS -0.3 mmol/L (-2.0-2.0); BG BILEVEL POS AIRWAY PRESSURE 15/5; BG CARBOXYHEMOGLOBIN 0.7 % (0.5-1.5); BG DEOXYHEMOGLOBIN 0.7 % (0.0-5.0); BG FRACTION INSPIRED OXYGEN 40; BG HCO3 ACT 25.6 mmol/L (22.0-26.0); BG METHEMOGLOBIN 0.2 % (0.0-1.5); BG OXYGEN SATURATION 99.3 % (92.0-98.5); BG OXYHEMOGLOBIN 98.4 % (94.0-97.0); BG PCO2 46.7 mmHg (35.0-45.0); BG PH 7.356 (7.350-7.450); BG SAMPLE SITE RIGHT BRACHIAL; BG TOTAL HEMOGLOBIN 11.8 g/dL (12.0-18.0); BG VENT MODE MASK - BIPAP; BG VENT RATE 16 set
[2019-09-08] MEDS ORDERED: ONDANSETRON HCL 4MG/2ML INJ IV PRN (09:45)
[2019-09-08] MEDS ORDERED: IPRATROPIUM/ALBUTEROL 0.5-3(2.5)MG/3ML NEB HHN PRN (09:45)
[2019-09-08] MEDS ORDERED: LOSARTAN POTASSIUM 100 MG TABLET PO NR (10:15)
[2019-09-08] MEDS: METHYLPREDNISOLONE SOD SUCC 40 MG/ML VIAL IV SCH (11:00)
[2019-09-08] MEDS: HYDROCODONE/ACETAMINOPHEN 10/325MG TABLET PO PRN ×2 (11:11→23:45)
[2019-09-08] MEDS ORDERED: IPRATROPIUM/ALBUTEROL 0.5-3(2.5)MG/3ML NEB HHN SCH (12:00)
[2019-09-08] MEDS: BENZONATATE 100MG CAPSULE PO PRN (15:04)
[2019-09-08 18:05] LABS: CLARITY URINE CLOUDY (CLEAR); COLOR URINE YELLOW (YELLOW); KETONES URINE NEGATIVE (NEGATIVE); LEUKOCYTE ESTERASE URINE NEGATIVE (NEGATIVE); NITRITE URINE NEGATIVE (NEGATIVE); OCCULT BLOOD URINE NEGATIVE (NEGATIVE); PROTEIN URINE NEGATIVE (NEGATIVE); SPECIFIC GRAVITY URINE 1.021 (1.005-1.030); UROBILINOGEN URINE 0.2 E.U./dL (0.2-1.0)
[2019-09-08 18:21] LABS: *AMPHETAMINES SCREEN URINE NEGATIVE (NEGATIVE); *BARBITURATES SCREEN URINE NEGATIVE (NEGATIVE); *BENZODIAZEPINES SCREEN URINE NEGATIVE (NEGATIVE); *COCAINE SCREEN URINE PRESUMTIVE POSITIVE (NEGATIVE); METHADONE URINE SCREEN NEGATIVE (NEGATIVE)
[2019-09-08 18:22] LABS: CANNABINOID URINE SCREEN NEGATIVE (NEGATIVE); OPIATES URINE SCREEN PRESUMTIVE POSITIVE (NEGATIVE); PHENCYCLIDINE URINE SCREEN PRESUMTIVE POSITIVE (NEGATIVE)
[2019-09-08 23:14] VITALS: BP 167/89
[2019-09-08] MEDS: MONTELUKAST SODIUM 10MG TABLET PO SCH (23:44)
[2019-09-08] MEDS: AMLODIPINE 5MG TABLET PO SCH (23:44)
[2019-09-09] VITALS (8 sets, daily range): BP systolic 109–150; BP diastolic 64–96
[2019-09-09] MEDS: THEOPHYLLINE ANHYDROUS 80 MG/15 ML 120ML PO SCH ×5 (00:19→23:14)
[2019-09-09] MEDS: METHYLPREDNISOLONE SOD SUCC 40 MG/ML VIAL IV SCH ×4 (03:41→17:42)
[2019-09-09] MEDS: BENZONATATE 100MG CAPSULE PO PRN ×2 (04:39→20:06)
[2019-09-09] MEDS ORDERED: POTASSIUM CHLORIDE 20MEQ TABLET SR PO NR (05:15)
[2019-09-09] MEDS ORDERED: CLONIDINE 0.1MG TABLET PO PRN (05:15)
[2019-09-09] MEDS: IPRATROPIUM/ALBUTEROL 0.5-3(2.5)MG/3ML NEB HHN SCH ×3 (06:14→20:12)
[2019-09-09 07:05] LABS: HEMATOCRIT. 30.2 % (42.0-52.0); HEMOGLOBIN. 10.6 g/dL (14.0-18.0); MEAN CORPUSCULAR HEMOGLOBIN 32.4 pg (28.0-32.0); MEAN CORPUSCULAR VOLUME 92.4 fL (80.0-94.0); PLATELET 209 x1000/uL (130-400); RED BLOOD CELL COUNT 3.27 mill/uL (4.7-6.1); RED CELL DISTRIBUTION WIDTH 13.3 % (11.6-14.6)
[2019-09-09 07:18] LABS: CHLORIDE 105 mEq/L (98-107)
[2019-09-09] MEDS: AMLODIPINE 5MG TABLET PO SCH ×2 (09:10→20:02)
[2019-09-09] MEDS: LOSARTAN POTASSIUM 100 MG TABLET PO SCH (09:11)
[2019-09-09] MEDS: ENOXAPARIN 30MG/0.3ML SYR SUBCUT SCH (09:11)
[2019-09-09 11:40] LABS: PLATELET ESTIMATE NORMAL
[2019-09-09] MEDS: MONTELUKAST SODIUM 10MG TABLET PO SCH (17:42)
[2019-09-09] MEDS: ZOLPIDEM TARTRATE 5MG TABLET PO PRN (20:02)
[2019-09-10] VITALS (12 sets, daily range): BP systolic 123–157; BP diastolic 71–97
[2019-09-10] MEDS: IPRATROPIUM/ALBUTEROL 0.5-3(2.5)MG/3ML NEB HHN SCH ×6 (00:59→20:21)
[2019-09-10] MEDS: METHYLPREDNISOLONE SOD SUCC 40 MG/ML VIAL IV SCH ×3 (02:08→18:23)
[2019-09-10] MEDS: THEOPHYLLINE ANHYDROUS 80 MG/15 ML 120ML PO SCH ×4 (05:10→21:02)
[2019-09-10 07:06] LABS: HEMATOCRIT. 30.1 % (42.0-52.0); HEMOGLOBIN. 10.6 g/dL (14.0-18.0); MEAN CORPUSCULAR HEMOGLOBIN 32.4 pg (28.0-32.0); MEAN CORPUSCULAR VOLUME 92.1 fL (80.0-94.0); MEAN PLATELET VOLUME 8.1 fl (7.4-10.4); PLATELET 197 x1000/uL (130-400); RED BLOOD CELL COUNT 3.27 mill/uL (4.7-6.1); RED CELL DISTRIBUTION WIDTH 13.1 % (11.6-14.6)
[2019-09-10 07:09] LABS: CHLORIDE 102 mEq/L (98-107)
[2019-09-10] MEDS: ENOXAPARIN 30MG/0.3ML SYR SUBCUT SCH (09:22)
[2019-09-10] MEDS: AMLODIPINE 5MG TABLET PO SCH ×2 (09:23→21:02)
[2019-09-10] MEDS: LOSARTAN POTASSIUM 100 MG TABLET PO SCH (09:23)
[2019-09-10] MEDS: HYDROCODONE/ACETAMINOPHEN 10/325MG TABLET PO PRN (12:11)
[2019-09-10] MEDS ORDERED: TERBUTALINE SULFATE 1MG/ML VIAL SUBCUT NR (13:25)
[2019-09-10] MEDS: MONTELUKAST SODIUM 10MG TABLET PO SCH (18:24)
[2019-09-10 20:03] LABS: PLATELET ESTIMATE NORMAL
[2019-09-10] MEDS: ZOLPIDEM TARTRATE 5MG TABLET PO PRN (21:02)
[2019-09-11] VITALS (13 sets, daily range): BP systolic 121–157; BP diastolic 66–97
[2019-09-11] MEDS: IPRATROPIUM/ALBUTEROL 0.5-3(2.5)MG/3ML NEB HHN SCH ×5 (00:33→17:15)
[2019-09-11] MEDS: HYDROCODONE/ACETAMINOPHEN 10/325MG TABLET PO PRN ×2 (00:41→18:43)
[2019-09-11] MEDS: METHYLPREDNISOLONE SOD SUCC 40 MG/ML VIAL IV SCH ×3 (02:29→17:13)
[2019-09-11] MEDS: THEOPHYLLINE ANHYDROUS 80 MG/15 ML 120ML PO SCH ×3 (06:18→21:53)
[2019-09-11 06:50] LABS: CHLORIDE 101 mEq/L (98-107)
[2019-09-11] MEDS: ENOXAPARIN 30MG/0.3ML SYR SUBCUT SCH (09:13)
[2019-09-11] MEDS: LOSARTAN POTASSIUM 100 MG TABLET PO SCH (09:13)
[2019-09-11] MEDS: AMLODIPINE 5MG TABLET PO SCH ×2 (09:14→20:18)
[2019-09-11] MEDS: BENZONATATE 100MG CAPSULE PO PRN (09:15)
[2019-09-11] MEDS: MORPHINE SULFATE 2 MG/ML CPJ (NOT FOR IM USE) IV PRN ×2 (09:21→13:24)
[2019-09-11] MEDS: MONTELUKAST SODIUM 10MG TABLET PO SCH (17:13)
[2019-09-11] MEDS: ZOLPIDEM TARTRATE 5MG TABLET PO PRN (20:19)
[2019-09-12] MEDS: HYDROCODONE/ACETAMINOPHEN 10/325MG TABLET PO PRN (00:26)
[2019-09-12] MEDS: BENZONATATE 100MG CAPSULE PO PRN ×2 (00:29→08:28)
[2019-09-12 02:21] VITALS: BP 133/95
[2019-09-12] MEDS: METHYLPREDNISOLONE SOD SUCC 40 MG/ML VIAL IV SCH ×2 (02:38→09:56)
[2019-09-12 04:01] VITALS: BP 137/92
[2019-09-12] MEDS: THEOPHYLLINE ANHYDROUS 80 MG/15 ML 120ML PO SCH (06:25)
[2019-09-12 06:26] VITALS: BP 137/86
[2019-09-12] MEDS ORDERED: GUAI600T44 PO (07:55)
[2019-09-12] MEDS ORDERED: MONT10TA21 PO (07:55)
[2019-09-12] MEDS ORDERED: P20 MT (07:55)
[2019-09-12] MEDS ORDERED: ATOR20TA65 MT (07:56)
[2019-09-12 08:00] VITALS: BP 117/71
[2019-09-12] MEDS: LOSARTAN POTASSIUM 100 MG TABLET PO SCH (08:24)
[2019-09-12] MEDS: ENOXAPARIN 30MG/0.3ML SYR SUBCUT SCH (08:24)
[2019-09-12] MEDS: AMLODIPINE 5MG TABLET PO SCH (08:24)
[2019-09-12] MEDS: IPRATROPIUM/ALBUTEROL 0.5-3(2.5)MG/3ML NEB HHN SCH (08:52)
[2019-09-12 09:26] VITALS: BP 117/71
[2019-09-12 09:48] VITALS: BP 152/127
== END 2019-09-12 10:55 | disposition home or self-care (01) | DRG 816 ==
LOC: ER 06:21 → 3WST 08:52 → ENRESERV 20:12
PROVIDERS: ADMIT Internal Medicine; ATTEND Internal Medicine
PROC: 5A09357 Assistance with Respiratory Ventilation, Less than 24 Consecutive Hours, Continuous Positive Airway Pressure (ICD-10-PCS; principal; 2019-09-08)
PROC: 5A09357 Assistance with Respiratory Ventilation, Less than 24 Consecutive Hours, Continuous Positive Airway Pressure (ICD-10-PCS; 2019-09-09)
PROC: 5A09357 Assistance with Respiratory Ventilation, Less than 24 Consecutive Hours, Continuous Positive Airway Pressure (ICD-10-PCS; 2019-09-10)
DX: T40.5X1A Poisoning by cocaine, accidental (unintentional), initial encounter (principal); R65.11 Systemic inflammatory response syndrome (SIRS) of non-infectious origin with acute organ dysfunction; J96.02 Acute respiratory failure with hypercapnia; J96.01 Acute respiratory failure with hypoxia; E87.2 Acidosis; E44.1 Mild protein-calorie malnutrition; C14.0 Malignant neoplasm of pharynx, unspecified; D64.9 Anemia, unspecified; I11.0 Hypertensive heart disease with heart failure; I50.9 Heart failure, unspecified; F11.10 Opioid abuse, uncomplicated; F16.10 Hallucinogen abuse, uncomplicated; E78.00 Pure hypercholesterolemia, unspecified; R59.0 Localized enlarged lymph nodes; J98.11 Atelectasis; F14.10 Cocaine abuse, uncomplicated; J68.0 Bronchitis and pneumonitis due to chemicals, gases, fumes and vapors; E87.6 Hypokalemia; Z85.819 Personal history of malignant neoplasm of unspecified site of lip, oral cavity, and pharynx; Z92.3 Personal history of irradiation; Z99.81 Dependence on supplemental oxygen; Z85.89 Personal history of malignant neoplasm of other organs and systems; Z79.899 Other long term (current) drug therapy; Z68.1 Body mass index [BMI] 19.9 or less, adult; Z71.51 Drug abuse counseling and surveillance of drug abuser; Y92.89 Other specified places as the place of occurrence of the external cause
CPT/HCPCS: 36415; 36600; 71045; 80048; 80053; 80198; 80305; 81003; 82375; 82805; 83735; 83880; 84484; 85025; 93005; 94002; 94640; 94644; 94660; 99291; J1650; J2270; J2920; J2930; J3105; J3475

== ENCOUNTER 2019-09-16 12:50 | Inpatient (IN) | payer MEDICAID ==
[~2019-09-16] VITALS: Ht 172.7 cm; Wt 54.9 kg
[~2019-09-16 12:50] MED LIST changes: +ATOR20TA65 MT; +MONT10TA21 PO
[2019-09-16 13:33] LABS: HEMOGLOBIN. 12.7 g/dL (14.0-18.0); MEAN CORPUSCULAR HEMOGLOBIN 32.6 pg (28.0-32.0); MEAN CORPUSCULAR VOLUME 94.8 fL (80.0-94.0); MEAN PLATELET VOLUME 7.2 fl (7.4-10.4); PLATELET 260 x1000/uL (130-400); RED CELL DISTRIBUTION WIDTH 13.4 % (11.6-14.6)
[2019-09-16 13:42] LABS: CHLORIDE 105 mEq/L (98-107)
[2019-09-16] MEDS ORDERED: CEFTRIAXONE 1 G PREMIX 50 ML IV ONE (14:00)
[2019-09-16] MEDS ORDERED: AZITHROMYCIN 500 MG TABLET PO ONE (14:00)
[2019-09-16] MEDS ORDERED: METHYLPREDNISOLONE SOD SUCC 125 MG/2 ML VIAL IV STA (14:00)
[2019-09-16] MEDS ORDERED: IPRATROPIUM/ALBUTEROL 0.5-3(2.5)MG/3ML NEB HHN ONE (14:00)
[2019-09-16 14:02] LABS: PLATELET ESTIMATE NORMAL
[2019-09-16 15:42] LABS: BG BASE EXCESS 1.7 mmol/L (-2.0-2.0); BG BILEVEL POS AIRWAY PRESSURE 15/5; BG CARBOXYHEMOGLOBIN 0.2 % (0.5-1.5); BG HCO3 ACT 27.5 mmol/L (22.0-26.0); BG METHEMOGLOBIN 0.2 % (0.0-1.5); BG OXYHEMOGLOBIN 98.6 % (94.0-97.0); BG PCO2 48.2 mmHg (35.0-45.0); BG PH 7.374 (7.350-7.450); BG PO2 200.6 mmHg (75.0-100.0); BG SAMPLE SITE RIGHT RADIAL; BG TOTAL HEMOGLOBIN 11.9 g/dL (12.0-18.0); BG VENT MODE MASK - BIPAP; BG VENT RATE 14 set
[2019-09-16 22:00] VITALS: BP 125/75
[2019-09-16 22:42] VITALS: BP 133/75
[2019-09-17] VITALS (12 sets, daily range): BP systolic 107–144; BP diastolic 65–87
[2019-09-17] MEDS ORDERED: LORAZEPAM 0.5MG TABLET PO PRN (08:30)
[2019-09-17] MEDS ORDERED: ACETAMINOPHEN 325MG TABLET PO PRN (08:30)
[2019-09-17] MEDS ORDERED: CLONIDINE 0.1MG TABLET PO PRN (08:30)
[2019-09-17] MEDS ORDERED: HYDROCODONE/ACETAMINOPHEN 5/325MG TABLET PO PRN (08:30)
[2019-09-17] MEDS ORDERED: IPRATROPIUM/ALBUTEROL 0.5-3(2.5)MG/3ML NEB HHN PRN (08:30)
[2019-09-17] MEDS ORDERED: GUAIFENESIN 200MG/10ML SUGAR FREE UDC PO PRN (08:30)
[2019-09-17] MEDS: METHYLPREDNISOLONE SOD SUCC 40 MG/ML VIAL IV SCH ×2 (09:58→16:39)
[2019-09-17] MEDS: BENZONATATE 100MG CAPSULE PO SCH ×3 (09:58→18:35)
[2019-09-17] MEDS: ATORVASTATIN CALCIUM 20MG TABLET PO SCH (09:59)
[2019-09-17] MEDS: PANTOPRAZOLE 40MG DR TABLET PO SCH (10:00)
[2019-09-17] MEDS: LOSARTAN POTASSIUM 100 MG TABLET PO SCH (10:00)
[2019-09-17] MEDS: AMLODIPINE 5MG TABLET PO SCH ×2 (10:12→21:23)
[2019-09-17] MEDS: MONTELUKAST SODIUM 10MG TABLET PO SCH (16:39)
[2019-09-17 17:02] LABS: BG BASE EXCESS 1.6 mmol/L (-2.0-2.0); BG CARBOXYHEMOGLOBIN 0.3 % (0.5-1.5); BG DEOXYHEMOGLOBIN 3.5 % (0.0-5.0); BG FRACTION INSPIRED OXYGEN 28; BG HCO3 ACT 26.6 mmol/L (22.0-26.0); BG METHEMOGLOBIN 0.2 % (0.0-1.5); BG OXYGEN SATURATION 96.5 % (92.0-98.5); BG PCO2 43.1 mmHg (35.0-45.0); BG PH 7.408 (7.350-7.450); BG SAMPLE SITE RIGHT RADIAL; BG TOTAL HEMOGLOBIN 12.1 g/dL (12.0-18.0); BG VENT MODE NASAL CANNULA
[2019-09-17] MEDS: THEOPHYLLINE ANHYDROUS 80 MG/15 ML 120ML PO SCH (21:23)
[2019-09-18] VITALS (10 sets, daily range): BP systolic 111–143; BP diastolic 59–84
[2019-09-18] MEDS: IPRATROPIUM/ALBUTEROL 0.5-3(2.5)MG/3ML NEB HHN SCH ×6 (00:09→20:57)
[2019-09-18] MEDS: METHYLPREDNISOLONE SOD SUCC 40 MG/ML VIAL IV SCH ×3 (01:32→17:04)
[2019-09-18 05:42] LABS: HEMATOCRIT. 35.5 % (42.0-52.0); HEMOGLOBIN. 12.1 g/dL (14.0-18.0); MEAN CORPUSCULAR HEMOGLOBIN 31.9 pg (28.0-32.0); MEAN CORPUSCULAR VOLUME 93.7 fL (80.0-94.0); MEAN PLATELET VOLUME 7.6 fl (7.4-10.4); PLATELET 262 x1000/uL (130-400); RED BLOOD CELL COUNT 3.79 mill/uL (4.7-6.1); RED CELL DISTRIBUTION WIDTH 12.9 % (11.6-14.6)
[2019-09-18] MEDS: THEOPHYLLINE ANHYDROUS 80 MG/15 ML 120ML PO SCH ×3 (05:52→21:34)
[2019-09-18 06:19] LABS: CHLORIDE 104 mEq/L (98-107)
[2019-09-18] MEDS: LOSARTAN POTASSIUM 100 MG TABLET PO SCH (08:31)
[2019-09-18] MEDS: AMLODIPINE 5MG TABLET PO SCH ×2 (08:32→21:00)
[2019-09-18] MEDS: ATORVASTATIN CALCIUM 20MG TABLET PO SCH (08:33)
[2019-09-18] MEDS: BENZONATATE 100MG CAPSULE PO SCH ×3 (08:33→17:04)
[2019-09-18] MEDS: PANTOPRAZOLE 40MG DR TABLET PO SCH (08:34)
[2019-09-18 12:47] LABS: PLATELET ESTIMATE NORMAL
[2019-09-18] MEDS: MONTELUKAST SODIUM 10MG TABLET PO SCH (17:04)
[2019-09-19] VITALS (12 sets, daily range): BP systolic 94–153; BP diastolic 63–79
[2019-09-19] MEDS: METHYLPREDNISOLONE SOD SUCC 40 MG/ML VIAL IV SCH ×3 (00:30→18:08)
[2019-09-19] MEDS: IPRATROPIUM/ALBUTEROL 0.5-3(2.5)MG/3ML NEB HHN SCH ×6 (02:03→20:25)
[2019-09-19] MEDS: THEOPHYLLINE ANHYDROUS 80 MG/15 ML 120ML PO SCH ×3 (06:25→21:50)
[2019-09-19] MEDS: AMLODIPINE 5MG TABLET PO SCH ×2 (08:58→21:00)
[2019-09-19] MEDS: ATORVASTATIN CALCIUM 20MG TABLET PO SCH (08:58)
[2019-09-19] MEDS: LOSARTAN POTASSIUM 100 MG TABLET PO SCH (08:59)
[2019-09-19] MEDS: FAMOTIDINE 20MG TABLET PO SCH (08:59)
[2019-09-19] MEDS: BENZONATATE 100MG CAPSULE PO SCH ×3 (08:59→18:08)
[2019-09-19 09:02] LABS: BG BASE EXCESS 4.2 mmol/L (-2.0-2.0); BG CARBOXYHEMOGLOBIN 0.3 % (0.5-1.5); BG DEOXYHEMOGLOBIN 4.4 % (0.0-5.0); BG FRACTION INSPIRED OXYGEN 28; BG HCO3 ACT 28.9 mmol/L (22.0-26.0); BG METHEMOGLOBIN 0.1 % (0.0-1.5); BG OXYGEN SATURATION 95.6 % (92.0-98.5); BG OXYHEMOGLOBIN 95.2 % (94.0-97.0); BG PCO2 43.6 mmHg (35.0-45.0); BG PH 7.439 (7.350-7.450); BG PO2 78.1 mmHg (75.0-100.0); BG SAMPLE SITE RIGHT RADIAL; BG TOTAL HEMOGLOBIN 13.4 g/dL (12.0-18.0); BG VENT MODE NASAL CANNULA
[2019-09-19] MEDS: MONTELUKAST SODIUM 10MG TABLET PO SCH (18:08)
[2019-09-19] MEDS: GUAIFENESIN 600MG ER TABLET PO SCH (21:49)
[2019-09-19 22:28] LABS: *AMPHETAMINES SCREEN URINE NEGATIVE (NEGATIVE); *BARBITURATES SCREEN URINE NEGATIVE (NEGATIVE); *BENZODIAZEPINES SCREEN URINE NEGATIVE (NEGATIVE)
[2019-09-19 22:30] LABS: *COCAINE SCREEN URINE PRESUMTIVE POSITIVE (NEGATIVE); CANNABINOID URINE SCREEN NEGATIVE (NEGATIVE); METHADONE URINE SCREEN NEGATIVE (NEGATIVE); OPIATES URINE SCREEN NEGATIVE (NEGATIVE); PHENCYCLIDINE URINE SCREEN PRESUMTIVE POSITIVE (NEGATIVE)
[2019-09-20] VITALS (12 sets, daily range): BP systolic 97–152; BP diastolic 59–91
[2019-09-20] MEDS: IPRATROPIUM/ALBUTEROL 0.5-3(2.5)MG/3ML NEB HHN SCH ×6 (00:23→20:59)
[2019-09-20] MEDS: METHYLPREDNISOLONE SOD SUCC 40 MG/ML VIAL IV SCH ×3 (01:04→16:06)
[2019-09-20] MEDS: THEOPHYLLINE ANHYDROUS 80 MG/15 ML 120ML PO SCH ×3 (05:51→22:03)
[2019-09-20 07:34] LABS: HEMATOCRIT. 33.5 % (42.0-52.0); HEMOGLOBIN. 11.9 g/dL (14.0-18.0); MEAN CORPUSCULAR HEMOGLOBIN 32.6 pg (28.0-32.0); MEAN CORPUSCULAR VOLUME 92.2 fL (80.0-94.0); MEAN PLATELET VOLUME 8.1 fl (7.4-10.4); PLATELET 240 x1000/uL (130-400); RED BLOOD CELL COUNT 3.63 mill/uL (4.7-6.1); RED CELL DISTRIBUTION WIDTH 13.1 % (11.6-14.6)
[2019-09-20] MEDS: LOSARTAN POTASSIUM 100 MG TABLET PO SCH (08:43)
[2019-09-20] MEDS: BENZONATATE 100MG CAPSULE PO SCH ×3 (08:43→17:00)
[2019-09-20] MEDS: GUAIFENESIN 600MG ER TABLET PO SCH ×2 (08:43→22:03)
[2019-09-20] MEDS: FAMOTIDINE 20MG TABLET PO SCH (08:43)
[2019-09-20] MEDS: ATORVASTATIN CALCIUM 20MG TABLET PO SCH (08:46)
[2019-09-20] MEDS: AMLODIPINE 5MG TABLET PO SCH ×2 (08:47→22:03)
[2019-09-20 10:29] LABS: CHLORIDE 103 mEq/L (98-107)
[2019-09-20 12:27] LABS: PLATELET ESTIMATE NORMAL
[2019-09-20] MEDS ORDERED: TERBUTALINE SULFATE 1MG/ML VIAL SUBCUT NR (15:15)
[2019-09-20] MEDS: ENOXAPARIN 30MG/0.3ML SYR SUBCUT SCH (16:06)
[2019-09-20] MEDS: DOCUSATE SODIUM 100MG CAPSULE PO SCH (16:07)
[2019-09-20] MEDS: MONTELUKAST SODIUM 10MG TABLET PO SCH (16:11)
[2019-09-21] VITALS (10 sets, daily range): BP systolic 104–136; BP diastolic 58–78
[2019-09-21] MEDS: METHYLPREDNISOLONE SOD SUCC 40 MG/ML VIAL IV SCH ×3 (00:08→16:19)
[2019-09-21] MEDS: IPRATROPIUM/ALBUTEROL 0.5-3(2.5)MG/3ML NEB HHN SCH ×6 (01:02→21:18)
[2019-09-21] MEDS: THEOPHYLLINE ANHYDROUS 80 MG/15 ML 120ML PO SCH ×3 (06:09→21:54)
[2019-09-21 06:57] LABS: HEMATOCRIT. 31.8 % (42.0-52.0); MEAN CORPUSCULAR VOLUME 92.1 fL (80.0-94.0); MEAN PLATELET VOLUME 8.1 fl (7.4-10.4); PLATELET 225 x1000/uL (130-400); RED BLOOD CELL COUNT 3.45 mill/uL (4.7-6.1); RED CELL DISTRIBUTION WIDTH 13.1 % (11.6-14.6)
[2019-09-21 07:19] LABS: CHLORIDE 102 mEq/L (98-107)
[2019-09-21] MEDS: AMLODIPINE 5MG TABLET PO SCH ×2 (08:03→21:00)
[2019-09-21] MEDS: FAMOTIDINE 20MG TABLET PO SCH (08:03)
[2019-09-21] MEDS: ATORVASTATIN CALCIUM 20MG TABLET PO SCH (08:03)
[2019-09-21] MEDS: LOSARTAN POTASSIUM 100 MG TABLET PO SCH (08:04)
[2019-09-21] MEDS: GUAIFENESIN 600MG ER TABLET PO SCH ×2 (08:04→21:54)
[2019-09-21] MEDS: DOCUSATE SODIUM 100MG CAPSULE PO SCH ×2 (08:04→16:13)
[2019-09-21] MEDS: BENZONATATE 100MG CAPSULE PO SCH ×3 (08:04→16:20)
[2019-09-21 09:46] LABS: PLATELET ESTIMATE NORMAL
[2019-09-21] MEDS: ENOXAPARIN 30MG/0.3ML SYR SUBCUT SCH (16:20)
[2019-09-21] MEDS: MONTELUKAST SODIUM 10MG TABLET PO SCH (16:20)
[2019-09-22] VITALS (13 sets, daily range): BP systolic 110–153; BP diastolic 57–90
[2019-09-22] MEDS: IPRATROPIUM/ALBUTEROL 0.5-3(2.5)MG/3ML NEB HHN SCH ×5 (00:38→20:08)
[2019-09-22] MEDS: METHYLPREDNISOLONE SOD SUCC 40 MG/ML VIAL IV SCH ×3 (00:41→16:12)
[2019-09-22] MEDS: THEOPHYLLINE ANHYDROUS 80 MG/15 ML 120ML PO SCH ×3 (05:21→22:00)
[2019-09-22 07:19] LABS: HEMATOCRIT. 37.6 % (42.0-52.0); HEMOGLOBIN. 12.7 g/dL (14.0-18.0); MEAN CORPUSCULAR HEMOGLOBIN 29.9 pg (28.0-32.0); MEAN CORPUSCULAR VOLUME 88.3 fL (80.0-94.0); MEAN PLATELET VOLUME 7.2 fl (7.4-10.4); PLATELET 286 x1000/uL (130-400); RED BLOOD CELL COUNT 4.26 mill/uL (4.7-6.1); RED CELL DISTRIBUTION WIDTH 13.5 % (11.6-14.6)
[2019-09-22 07:37] LABS: CHLORIDE 101 mEq/L (98-107)
[2019-09-22] MEDS: LOSARTAN POTASSIUM 100 MG TABLET PO SCH (08:47)
[2019-09-22] MEDS: AMLODIPINE 5MG TABLET PO SCH ×2 (08:47→22:44)
[2019-09-22] MEDS: GUAIFENESIN 600MG ER TABLET PO SCH ×2 (08:47→22:44)
[2019-09-22] MEDS: BENZONATATE 100MG CAPSULE PO SCH ×3 (08:47→16:12)
[2019-09-22] MEDS: FAMOTIDINE 20MG TABLET PO SCH (08:47)
[2019-09-22] MEDS: DOCUSATE SODIUM 100MG CAPSULE PO SCH ×2 (08:47→16:12)
[2019-09-22 11:43] LABS: PLATELET ESTIMATE NORMAL
[2019-09-22] MEDS ORDERED: P20 MT (12:19)
[2019-09-22] MEDS: ENOXAPARIN 30MG/0.3ML SYR SUBCUT SCH (16:12)
[2019-09-22] MEDS: MONTELUKAST SODIUM 10MG TABLET PO SCH (16:12)
[2019-09-22] MEDS: ATORVASTATIN CALCIUM 20MG TABLET PO SCH (22:44)
[2019-09-23] VITALS (12 sets, daily range): BP systolic 120–149; BP diastolic 66–87
[2019-09-23] MEDS: METHYLPREDNISOLONE SOD SUCC 40 MG/ML VIAL IV SCH ×3 (00:30→16:39)
[2019-09-23] MEDS: IPRATROPIUM/ALBUTEROL 0.5-3(2.5)MG/3ML NEB HHN SCH ×6 (00:53→21:12)
[2019-09-23] MEDS: THEOPHYLLINE ANHYDROUS 80 MG/15 ML 120ML PO SCH ×3 (05:14→20:33)
[2019-09-23] MEDS: FAMOTIDINE 20MG TABLET PO SCH (07:30)
[2019-09-23] MEDS: DOCUSATE SODIUM 100MG CAPSULE PO SCH ×2 (09:00→16:39)
[2019-09-23] MEDS: LOSARTAN POTASSIUM 100 MG TABLET PO SCH (10:07)
[2019-09-23] MEDS: BENZONATATE 100MG CAPSULE PO SCH ×3 (10:09→16:38)
[2019-09-23] MEDS: GUAIFENESIN 600MG ER TABLET PO SCH ×2 (10:09→20:19)
[2019-09-23] MEDS: AMLODIPINE 5MG TABLET PO SCH ×2 (10:09→20:19)
[2019-09-23] MEDS: MONTELUKAST SODIUM 10MG TABLET PO SCH (16:38)
[2019-09-23] MEDS: ENOXAPARIN 30MG/0.3ML SYR SUBCUT SCH (16:38)
[2019-09-23] MEDS: ATORVASTATIN CALCIUM 20MG TABLET PO SCH (20:19)
[2019-09-23] MEDS: ONDANSETRON HCL 4MG/2ML INJ IV PRN (20:27)
[2019-09-24] VITALS (11 sets, daily range): BP systolic 95–132; BP diastolic 58–83
[2019-09-24] MEDS: METHYLPREDNISOLONE SOD SUCC 40 MG/ML VIAL IV SCH ×3 (00:56→17:55)
[2019-09-24] MEDS: IPRATROPIUM/ALBUTEROL 0.5-3(2.5)MG/3ML NEB HHN SCH ×5 (01:06→21:32)
[2019-09-24] MEDS: THEOPHYLLINE ANHYDROUS 80 MG/15 ML 120ML PO SCH ×3 (05:22→22:00)
[2019-09-24] MEDS: FAMOTIDINE 20MG TABLET PO SCH (06:28)
[2019-09-24] MEDS: GUAIFENESIN 600MG ER TABLET PO SCH ×2 (09:01→21:00)
[2019-09-24] MEDS: BENZONATATE 100MG CAPSULE PO SCH ×3 (09:01→18:03)
[2019-09-24] MEDS: DOCUSATE SODIUM 100MG CAPSULE PO SCH ×2 (09:01→17:00)
[2019-09-24] MEDS: LOSARTAN POTASSIUM 100 MG TABLET PO SCH (09:02)
[2019-09-24] MEDS: AMLODIPINE 5MG TABLET PO SCH ×2 (09:03→21:00)
[2019-09-24] MEDS: MONTELUKAST SODIUM 10MG TABLET PO SCH (17:55)
[2019-09-24] MEDS: ENOXAPARIN 30MG/0.3ML SYR SUBCUT SCH (17:56)
[2019-09-24] MEDS: ATORVASTATIN CALCIUM 20MG TABLET PO SCH (21:00)
[2019-09-25] VITALS (10 sets, daily range): BP systolic 110–138; BP diastolic 40–80
[2019-09-25] MEDS: METHYLPREDNISOLONE SOD SUCC 40 MG/ML VIAL IV SCH ×3 (00:30→17:48)
[2019-09-25] MEDS: IPRATROPIUM/ALBUTEROL 0.5-3(2.5)MG/3ML NEB HHN SCH ×6 (01:04→23:59)
[2019-09-25] MEDS: GUAIFENESIN 600MG ER TABLET PO SCH ×2 (08:53→20:50)
[2019-09-25] MEDS: LOSARTAN POTASSIUM 100 MG TABLET PO SCH (08:53)
[2019-09-25] MEDS: FAMOTIDINE 20MG TABLET PO SCH (08:53)
[2019-09-25] MEDS: AMLODIPINE 5MG TABLET PO SCH ×2 (08:54→20:51)
[2019-09-25] MEDS: BENZONATATE 100MG CAPSULE PO SCH ×3 (08:54→17:49)
[2019-09-25] MEDS: THEOPHYLLINE ANHYDROUS 80 MG/15 ML 120ML PO SCH ×3 (08:55→20:54)
[2019-09-25] MEDS: DOCUSATE SODIUM 100MG CAPSULE PO SCH ×2 (09:00→17:00)
[2019-09-25 13:28] LABS: HEMATOCRIT. 34.5 % (42.0-52.0); HEMOGLOBIN. 12.1 g/dL (14.0-18.0); MEAN CORPUSCULAR HEMOGLOBIN 32.4 pg (28.0-32.0); MEAN CORPUSCULAR VOLUME 92.4 fL (80.0-94.0); MEAN PLATELET VOLUME 8.1 fl (7.4-10.4); PLATELET 195 x1000/uL (130-400); RED BLOOD CELL COUNT 3.73 mill/uL (4.7-6.1)
[2019-09-25 13:37] LABS: CHLORIDE 101 mEq/L (98-107)
[2019-09-25 14:12] LABS: PLATELET ESTIMATE NORMAL
[2019-09-25] MEDS: ENOXAPARIN 30MG/0.3ML SYR SUBCUT SCH (17:49)
[2019-09-25] MEDS: MONTELUKAST SODIUM 10MG TABLET PO SCH (17:49)
[2019-09-25] MEDS: ATORVASTATIN CALCIUM 20MG TABLET PO SCH (20:52)
[2019-09-26] VITALS (12 sets, daily range): BP systolic 118–135; BP diastolic 64–90
[2019-09-26] MEDS: METHYLPREDNISOLONE SOD SUCC 40 MG/ML VIAL IV SCH ×3 (00:38→17:07)
[2019-09-26] MEDS: IPRATROPIUM/ALBUTEROL 0.5-3(2.5)MG/3ML NEB HHN SCH ×5 (04:00→20:00)
[2019-09-26] MEDS: THEOPHYLLINE ANHYDROUS 80 MG/15 ML 120ML PO SCH ×3 (05:38→21:38)
[2019-09-26] MEDS: LOSARTAN POTASSIUM 100 MG TABLET PO SCH (08:17)
[2019-09-26] MEDS: BENZONATATE 100MG CAPSULE PO SCH ×3 (08:17→17:07)
[2019-09-26] MEDS: FAMOTIDINE 20MG TABLET PO SCH (08:17)
[2019-09-26] MEDS: GUAIFENESIN 600MG ER TABLET PO SCH ×2 (08:17→21:38)
[2019-09-26] MEDS: AMLODIPINE 5MG TABLET PO SCH ×2 (08:17→21:37)
[2019-09-26] MEDS: DOCUSATE SODIUM 100MG CAPSULE PO SCH ×2 (08:17→17:07)
[2019-09-26] MEDS: ENOXAPARIN 30MG/0.3ML SYR SUBCUT SCH (15:06)
[2019-09-26] MEDS: MONTELUKAST SODIUM 10MG TABLET PO SCH (17:07)
[2019-09-26] MEDS: ATORVASTATIN CALCIUM 20MG TABLET PO SCH (21:37)
[2019-09-26] MEDS: ONDANSETRON HCL 4MG/2ML INJ IV PRN (21:38)
[2019-09-27] VITALS (7 sets, daily range): BP systolic 101–151; BP diastolic 67–91
[2019-09-27] MEDS: METHYLPREDNISOLONE SOD SUCC 40 MG/ML VIAL IV SCH ×2 (00:19→08:34)
[2019-09-27] MEDS: IPRATROPIUM/ALBUTEROL 0.5-3(2.5)MG/3ML NEB HHN SCH ×4 (04:00→12:10)
[2019-09-27] MEDS: THEOPHYLLINE ANHYDROUS 80 MG/15 ML 120ML PO SCH ×2 (06:29→13:22)
[2019-09-27] MEDS: FAMOTIDINE 20MG TABLET PO SCH (06:29)
[2019-09-27] MEDS: BENZONATATE 100MG CAPSULE PO SCH ×2 (08:32→13:22)
[2019-09-27] MEDS: GUAIFENESIN 600MG ER TABLET PO SCH (08:32)
[2019-09-27] MEDS: DOCUSATE SODIUM 100MG CAPSULE PO SCH ×2 (08:33→08:38)
[2019-09-27] MEDS: AMLODIPINE 5MG TABLET PO SCH (08:33)
[2019-09-27] MEDS: LOSARTAN POTASSIUM 100 MG TABLET PO SCH (08:51)
== END 2019-09-27 20:49 | disposition home or self-care (01) | DRG 816 ==
LOC: ER 12:50 → 5EST 16:39 → ENRESERV 20:13
PROVIDERS: ADMIT Internal Medicine; ATTEND Internal Medicine
PROC: 5A09357 Assistance with Respiratory Ventilation, Less than 24 Consecutive Hours, Continuous Positive Airway Pressure (ICD-10-PCS; principal; 2019-09-16)
PROC: 5A09357 Assistance with Respiratory Ventilation, Less than 24 Consecutive Hours, Continuous Positive Airway Pressure (ICD-10-PCS; 2019-09-18)
PROC: 5A09357 Assistance with Respiratory Ventilation, Less than 24 Consecutive Hours, Continuous Positive Airway Pressure (ICD-10-PCS; 2019-09-19)
PROC: 5A09357 Assistance with Respiratory Ventilation, Less than 24 Consecutive Hours, Continuous Positive Airway Pressure (ICD-10-PCS; 2019-09-20)
DX: T40.5X1A Poisoning by cocaine, accidental (unintentional), initial encounter (principal); J96.00 Acute respiratory failure, unspecified whether with hypoxia or hypercapnia; I50.30 Unspecified diastolic (congestive) heart failure; I11.0 Hypertensive heart disease with heart failure; E87.2 Acidosis; D53.9 Nutritional anemia, unspecified; E44.1 Mild protein-calorie malnutrition; J68.0 Bronchitis and pneumonitis due to chemicals, gases, fumes and vapors; E78.00 Pure hypercholesterolemia, unspecified; T40.7X1A Poisoning by cannabis (derivatives), accidental (unintentional), initial encounter; R59.0 Localized enlarged lymph nodes; E87.6 Hypokalemia; F14.90 Cocaine use, unspecified, uncomplicated; E78.5 Hyperlipidemia, unspecified; Z85.819 Personal history of malignant neoplasm of unspecified site of lip, oral cavity, and pharynx; Z87.891 Personal history of nicotine dependence; Z85.89 Personal history of malignant neoplasm of other organs and systems; Z92.3 Personal history of irradiation; Z68.1 Body mass index [BMI] 19.9 or less, adult; Y92.89 Other specified places as the place of occurrence of the external cause; T40.991A Poisoning by other psychodysleptics [hallucinogens], accidental (unintentional), initial encounter
CPT/HCPCS: 36415; 36600; 71045; 80048; 80053; 80305; 80320; 82375; 82805; 83605; 83880; 84484; 85025; 85379; 93005; 94640; 94660; 96365; 99291; J0696; J1650; J2405; J2920; J2930; J3105; G0480

== ENCOUNTER 2020-01-08 20:23 | Inpatient (IN) | payer MEDICAID ==
[~2020-01-08] VITALS: Ht 172.7 cm; Wt 67.6 kg
[2020-01-08] MEDS ORDERED: VANCOMYCIN 1 G PREMIX 200 ML IV SCH (21:15)
[2020-01-08] MEDS ORDERED: PIPERACILLIN/TAZOBACTAM 3.375GM/50ML PREMIX IV SCH (21:15)
[2020-01-08] MEDS ORDERED: METHYLPREDNISOLONE SOD SUCC 125 MG/2 ML VIAL IV ONE (21:15)
[2020-01-08] MEDS ORDERED: AZITHROMYCIN 500 MG in DEXT 5% WATER 250 ML IV SCH (21:15)
[2020-01-08] MEDS ORDERED: IPRATROPIUM/ALBUTEROL 0.5-3(2.5)MG/3ML NEB HHN ONE (21:15)
[2020-01-08 21:29] LABS: BG BASE EXCESS 2.3 mmol/L (-2.0-2.0); BG DEOXYHEMOGLOBIN 1.3 % (0.0-5.0); BG FRACTION INSPIRED OXYGEN 100; BG METHEMOGLOBIN 0.2 % (0.0-1.5); BG OXYGEN SATURATION 98.7 % (92.0-98.5); BG OXYHEMOGLOBIN 96.5 % (94.0-97.0); BG PH 7.384 (7.350-7.450); BG SAMPLE SITE RIGHT RADIAL; BG TOTAL HEMOGLOBIN 13.5 g/dL (12.0-18.0); BG VENT MODE MASK - NRB
[2020-01-08 22:38] LABS: BASOPHILS % 0.2 % (0.0-2.0); EOSINOPHILS % 5.8 % (0.0-5.0); HEMATOCRIT. 40.7 % (42.0-52.0); HEMOGLOBIN. 13.9 g/dL (14.0-18.0); LYMPHOCYTES % 13.1 % (20.0-50.0); MEAN CORPUSCULAR HEMOGLOBIN 32.1 pg (28.0-32.0); MEAN PLATELET VOLUME 7.5 fl (7.4-10.4); MONOCYTES % 12.7 % (2.0-8.0); NEUTROPHILS % 68.2 % (40.0-76.0); PLATELET 240 x1000/uL (130-400); RED BLOOD CELL COUNT 4.33 mill/uL (4.7-6.1); RED CELL DISTRIBUTION WIDTH 13.7 % (11.6-14.6)
[2020-01-08 22:39] LABS: PROTHROMBIN TIME 10.9 sec (9.6-11.0)
[2020-01-08 22:40] LABS: CHLORIDE 106 mEq/L (98-107)
[2020-01-09 04:48] LABS: CLARITY URINE TURBID (CLEAR); COLOR URINE DARK YELLOW (YELLOW); KETONES URINE TRACE (NEGATIVE); LEUKOCYTE ESTERASE URINE NEGATIVE (NEGATIVE); NITRITE URINE NEGATIVE (NEGATIVE); OCCULT BLOOD URINE NEGATIVE (NEGATIVE); PROTEIN URINE TRACE (NEGATIVE)
[2020-01-09] MEDS ORDERED: CLONIDINE 0.1MG TABLET PO PRN (14:45)
[2020-01-09] MEDS ORDERED: DOCUSATE SODIUM 100MG CAPSULE PO PRN (14:45)
[2020-01-09] MEDS ORDERED: ONDANSETRON HCL 4MG/2ML INJ IV PRN (14:45)
[2020-01-09] MEDS ORDERED: ACETAMINOPHEN 325MG TABLET PO PRN (14:45)
[2020-01-09] MEDS ORDERED: LORAZEPAM 0.5MG TABLET PO PRN (14:45)
[2020-01-09] MEDS ORDERED: NON FORMULARY PATIENT HOME MED XX SCH (14:45)
[2020-01-09] MEDS: METHYLPREDNISOLONE SOD SUCC 40 MG/ML VIAL IV SCH ×2 (16:03→22:00)
[2020-01-09] MEDS ORDERED: LEVOFLOXACIN 500MG PREMIX 100 ML IV NR (16:45)
[2020-01-09] MEDS ORDERED: ALBUTEROL 6.7GM HFA INHALER ORI SCH (16:45)
[2020-01-09] MEDS: THEOPHYLLINE ANHYDROUS 80 MG/15 ML 120ML PO SCH (17:52)
[2020-01-09] MEDS ORDERED: BENZONATATE 100MG CAPSULE PO PRN (20:15)
[2020-01-09 20:30] LABS: *AMPHETAMINES SCREEN URINE NEGATIVE (NEGATIVE)
[2020-01-09 20:31] LABS: *BARBITURATES SCREEN URINE NEGATIVE (NEGATIVE); *BENZODIAZEPINES SCREEN URINE NEGATIVE (NEGATIVE); *COCAINE SCREEN URINE PRESUMTIVE POSITIVE (NEGATIVE); METHADONE URINE SCREEN NEGATIVE (NEGATIVE); OPIATES URINE SCREEN NEGATIVE (NEGATIVE); PHENCYCLIDINE URINE SCREEN PRESUMTIVE POSITIVE (NEGATIVE)
[2020-01-09 20:32] LABS: CANNABINOID URINE SCREEN NEGATIVE (NEGATIVE)
[2020-01-09] MEDS: AMLODIPINE 5MG TABLET PO SCH (21:00)
[2020-01-09] MEDS: ALBUTEROL 6.7GM HFA INHALER ORI SCH (22:33)
[2020-01-09] MEDS: ATORVASTATIN CALCIUM 20MG TABLET PO SCH (23:17)
[2020-01-09] MEDS: GUAIFENESIN 600MG ER TABLET PO SCH (23:17)
[2020-01-09] MEDS: ENOXAPARIN 40MG/0.4ML SYR SUBCUT SCH (23:17)
[2020-01-10] MEDS: ALBUTEROL 6.7GM HFA INHALER ORI SCH ×3 (02:11→09:35)
[2020-01-10 06:10] LABS: HIV SCREEN 4G Non Reactive (Non Reactive)
[2020-01-10] MEDS: METHYLPREDNISOLONE SOD SUCC 40 MG/ML VIAL IV SCH ×3 (06:46→21:28)
[2020-01-10] MEDS: THEOPHYLLINE ANHYDROUS 80 MG/15 ML 120ML PO SCH (06:57)
[2020-01-10] MEDS: LOSARTAN POTASSIUM 100 MG TABLET PO SCH (10:58)
[2020-01-10] MEDS: GUAIFENESIN 600MG ER TABLET PO SCH ×2 (10:59→21:32)
[2020-01-10] MEDS: AMLODIPINE 5MG TABLET PO SCH ×2 (10:59→21:31)
[2020-01-10] MEDS: PANTOPRAZOLE 40MG DR TABLET PO SCH (10:59)
[2020-01-10 12:00] VITALS: BP 122/67
[2020-01-10 16:00] VITALS: BP 108/67
[2020-01-10] MEDS ORDERED: LEVOFLOXACIN 500MG PREMIX 100 ML IV SCH (16:00)
[2020-01-10 17:07] VITALS: BP 108/66
[2020-01-10 17:08] LABS: CHLORIDE 105 mEq/L (98-107); HEMATOCRIT. 36.6 % (42.0-52.0); HEMOGLOBIN. 12.6 g/dL (14.0-18.0); MEAN CORPUSCULAR VOLUME 92.7 fL (80.0-94.0); MEAN PLATELET VOLUME 7.6 fl (7.4-10.4); PLATELET 232 x1000/uL (130-400); RED BLOOD CELL COUNT 3.95 mill/uL (4.7-6.1); RED CELL DISTRIBUTION WIDTH 13.7 % (11.6-14.6)
[2020-01-10 17:47] LABS: PLATELET ESTIMATE NORMAL
[2020-01-10] MEDS: MONTELUKAST SODIUM 10MG TABLET PO SCH (18:50)
[2020-01-10 20:00] VITALS: BP_SYST 113; BP_DIAS 56; BP_DIAS 59
[2020-01-10] MEDS ORDERED: IPRATROPIUM/ALBUTEROL 0.5-3(2.5)MG/3ML NEB HHN SCH (20:00)
[2020-01-10] MEDS: IPRATROPIUM/ALBUTEROL 0.5-3(2.5)MG/3ML NEB HHN SCH (21:30)
[2020-01-10] MEDS: ATORVASTATIN CALCIUM 20MG TABLET PO SCH (21:32)
[2020-01-10] MEDS: ENOXAPARIN 40MG/0.4ML SYR SUBCUT SCH (21:58)
[2020-01-11] VITALS: BP 112/72
[2020-01-11] MEDS: THEOPHYLLINE ANHYDROUS 80 MG/15 ML 120ML PO SCH ×4 (02:03→17:26)
[2020-01-11 04:00] VITALS: BP 101/56
[2020-01-11] MEDS: METHYLPREDNISOLONE SOD SUCC 40 MG/ML VIAL IV SCH ×3 (05:24→21:47)
[2020-01-11 07:18] LABS: HEMATOCRIT. 33.5 % (42.0-52.0); HEMOGLOBIN. 11.7 g/dL (14.0-18.0); MEAN CORPUSCULAR HEMOGLOBIN 32.6 pg (28.0-32.0); MEAN CORPUSCULAR VOLUME 92.8 fL (80.0-94.0); MEAN PLATELET VOLUME 7.7 fl (7.4-10.4); PLATELET 221 x1000/uL (130-400); RED BLOOD CELL COUNT 3.61 mill/uL (4.7-6.1); RED CELL DISTRIBUTION WIDTH 13.6 % (11.6-14.6)
[2020-01-11 07:40] LABS: CHLORIDE 103 mEq/L (98-107)
[2020-01-11 08:00] VITALS: BP 113/70
[2020-01-11] MEDS: PANTOPRAZOLE 40MG DR TABLET PO SCH (09:03)
[2020-01-11] MEDS: LOSARTAN POTASSIUM 100 MG TABLET PO SCH (09:03)
[2020-01-11] MEDS: AMLODIPINE 5MG TABLET PO SCH ×2 (09:04→21:00)
[2020-01-11] MEDS: GUAIFENESIN 600MG ER TABLET PO SCH ×2 (09:04→21:47)
[2020-01-11] MEDS: IPRATROPIUM/ALBUTEROL 0.5-3(2.5)MG/3ML NEB HHN SCH ×4 (09:10→20:00)
[2020-01-11 11:57] VITALS: BP 109/59
[2020-01-11] MEDS: HYDROCODONE/ACETAMINOPHEN 5/325MG TABLET PO PRN ×2 (12:28→21:48)
[2020-01-11 16:00] VITALS: BP 124/76
[2020-01-11 16:20] LABS: PLATELET ESTIMATE NORMAL
[2020-01-11] MEDS: MONTELUKAST SODIUM 10MG TABLET PO SCH (17:25)
[2020-01-11 20:00] VITALS: BP 108/67
[2020-01-11] MEDS: ATORVASTATIN CALCIUM 20MG TABLET PO SCH (21:47)
[2020-01-11] MEDS: ENOXAPARIN 40MG/0.4ML SYR SUBCUT SCH (21:51)
[2020-01-12] VITALS: BP 116/80
[2020-01-12] MEDS: THEOPHYLLINE ANHYDROUS 80 MG/15 ML 120ML PO SCH (00:31)
[2020-01-12] MEDS: IPRATROPIUM/ALBUTEROL 0.5-3(2.5)MG/3ML NEB HHN SCH ×4 (01:04→16:29)
[2020-01-12 07:55] LABS: TOTAL IRON BINDING CAPACITY 222 ug/dL (250-450)
[2020-01-12 08:00] VITALS: BP 121/81
[2020-01-12] MEDS: HYDROCODONE/ACETAMINOPHEN 5/325MG TABLET PO PRN (08:50)
[2020-01-12] MEDS: AMLODIPINE 5MG TABLET PO SCH (08:50)
[2020-01-12] MEDS: LOSARTAN POTASSIUM 100 MG TABLET PO SCH (08:50)
[2020-01-12] MEDS: GUAIFENESIN 600MG ER TABLET PO SCH (08:51)
[2020-01-12] MEDS ORDERED: FAMOTIDINE 20MG TABLET PO SCH (09:00)
[2020-01-12 12:00] VITALS: BP 111/57
[2020-01-12] MEDS ORDERED: MUPI1OIN4 TP (14:38)
[2020-01-12 16:00] VITALS: BP 115/73
[2020-01-12] MEDS ORDERED: TERBUTALINE SULFATE 1MG/ML VIAL SUBCUT NR (16:30)
[2020-01-12 17:24] VITALS: BP 115/73
[2020-01-16 19:51] LABS: HEPATITIS B SURFACE AB < 3.1 mIU/mL
[2020-01-16 20:01] LABS: HEPATITIS B SURFACE ANTIGEN NEGATIVE
[2020-01-16 20:02] LABS: HEPATITIS B SURFACE ANTIGEN NEGATIVE
[2020-01-17 09:12] LABS: FERRITIN 99 ng/mL (22-322)
[2020-01-17 09:44] LABS: FOLIC ACID (FOLATE) SERUM >20 ng/mL ng/mL (>5.38)
[2020-01-17 09:55] LABS: VITAMIN B12 SERUM 445 pg/mL (211-911)
== END 2020-01-12 18:25 | disposition home or self-care (01) | DRG 816 ==
LOC: ER 20:23 → MICUSO 23:07 → EDBEDREQ 23:11 → EDBEDREQTM 23:11 → CANRESERV 01-09 23:03 → ENRESERV 01-09 23:03 → 8WST 01-10 09:45
PROVIDERS: ADMIT Internal Medicine; ATTEND Internal Medicine
DX: T40.5X1A Poisoning by cocaine, accidental (unintentional), initial encounter (principal); J96.02 Acute respiratory failure with hypercapnia; N17.0 Acute kidney failure with tubular necrosis; R65.11 Systemic inflammatory response syndrome (SIRS) of non-infectious origin with acute organ dysfunction; D72.1 Eosinophilia; C14.0 Malignant neoplasm of pharynx, unspecified; D64.9 Anemia, unspecified; J68.0 Bronchitis and pneumonitis due to chemicals, gases, fumes and vapors; Z99.81 Dependence on supplemental oxygen; D72.810 Lymphocytopenia; F19.10 Other psychoactive substance abuse, uncomplicated; D72.818 Other decreased white blood cell count; I10 Essential (primary) hypertension; Z92.3 Personal history of irradiation; F17.210 Nicotine dependence, cigarettes, uncomplicated; Z20.828 Contact with and (suspected) exposure to other viral communicable diseases; Z79.51 Long term (current) use of inhaled steroids; Z82.5 Family history of asthma and other chronic lower respiratory diseases; Z85.819 Personal history of malignant neoplasm of unspecified site of lip, oral cavity, and pharynx; L81.6 Other disorders of diminished melanin formation; F14.10 Cocaine abuse, uncomplicated; Y92.89 Other specified places as the place of occurrence of the external cause
CPT/HCPCS: 36415; 36600; 71045; 78582; 80048; 80053; 80305; 81003; 82375; 82607; 82728; 82746; 82805; 83540; 83550; 83605; 83880; 84484; 85025; 85379; 87389; 93005; 93970; 96365; 99285; A9558; J0456; J1650; J1956; J2543; J2920; J2930; J3105; J3370; J7060; U0003-CS